=== PATIENT | female | born 1960 | race Hispanic/Latino ===

== ENCOUNTER → 2019-08-22 | Outpatient (CLI) | payer BC, SELFPAY | END | disposition home or self-care (01) | PROVIDERS: PCP Family Medicine; Referring Provider Family Medicine; Visit Provider Family Medicine | DX: R68.89 Other general symptoms and signs (principal) | CPT/HCPCS: 87635; G2023; U0004 ==

== ENCOUNTER 2023-01-10 07:06 | Day surgery (SDC) | payer OTHER, SELFPAY ==
[2023-01-10] MEDS: Lactated Ringers 1,000 ML 15 ML IV (07:54)
[2023-01-10 07:55] VITALS: BP 140/65; PULSE 71; RESP 16; TEMP 36.8; O2SAT 98; BMI 25.2
--- NOTE | 2023-01-10 08:13 | HP.PCM_ITS ---
History and Physical Intake Vital Signs 12/27/2307:31 Height 5 ft 4 in Weight: 143 lb 2 oz BMI 24.5 BP 123/71 H Blood Pressure Location Rt brachial Position Sitting Respiration 18 Pulse 82 Pulse Source Monitor Temp 97.3 F L Temp Source Temporal Pulse Oximetry (%) 94 Oxygen Delivery Method room air Intake Visit Reasons: UPPER AND LOWER FOR SWALLOWING ISSUES Chief Complaint: EGD/Colonoscopy consult [employer] Required: No Is patient in pain?: No Allergies No Known Allergies Allergy (Unverified 12/26/22 08:32) Medications amlodipine 10 mg tablet mg PO DAILY 12/26/22 [History Confirmed 12/26/22] atorvastatin 40 mg tablet mg PO DAILY 12/26/22 [History Confirmed 12/26/22] blood-glucose meter (Accu-Chek Guide Me Glucose Meter) #1 ea 12/26/22 [History Confirmed 12/26/22] cholecalciferol (vitamin D3) 25 mcg (1,000 unit) capsule (Vitamin D3) PO DAILY 12/26/22 [History Confirmed 12/26/22] citalopram 10 mg tablet mg PO QHS 12/26/22 [History Confirmed 12/26/22] dulaglutide 3 mg/0.5 mL subcutaneous pen injector (Trulicity) 3 mg subcut QWEEK 12/26/22 [History Confirmed 12/26/22] enalapril maleate 20 mg tablet mg PO DAILY 12/26/22 [History Confirmed 12/26/22] insulin aspart U-100 100 unit/mL subcutaneous solution (Novolog U-100 Insulin aspart) 40 unit subcut QHS 12/26/22 [History Confirmed 12/26/22] insulin glargine 100 unit/mL subcutaneous cartridge 10 unit subcut DAILY 12/26/22 [History Confirmed 12/26/22] lancets (Accu-Chek Softclix Lancets) #100 ea 12/26/22 [History Confirmed 12/26/22] meloxicam 15 mg tablet mg PO DAILY 12/26/22 [History Confirmed 12/26/22] metformin 1,000 mg tablet 1,000 mg PO BID 12/26/22 [History Confirmed 12/26/22] pen needle, diabetic 31 gauge x 3/16 (BD Ultra-Fine Mini Pen Needle) #1,200 ea 10/02/23 [History Confirmed 12/26/22] [facility] Medical History (Updated 12/26/22 @ 11:[address] Eyal Patton MD) Diabetes Dysphagia Surgical History (Updated 12/26/22 @ 08:30 by Annette Malave) History of colonoscopy Family History (Updated 12/26/22 @ 08:31 by Annette Malave) Father DiabetesMother Hypertension Social History (Updated 12/26/22 @ 08:31 by Annette Malave) Smoking Status: Never smoker alcohol intake: never substance use type: does not use HPI HPI HPI: Patient is a 62-year-old female here for colonoscopy and EGD. Patient had her last reining colonoscopy 11 years ago and is due. She denies any abdominal pain or blood in her stool. Patient has also been having some dysphagia. She says has been going on for about a year. She has been taking a proton pump inhibitor. She has acid reflux. ROS General General: No weight change, appetite, fatigue, colon cancer, breast cancer or weakness HEENT HEENT: Yes difficulty swallowing and eye surgery; No eye injury, swollen glands or hoarseness Endo Endocrine: Yes diabetes mellitus; No thyroid disease, thyroid cancer, Hair loss, heat intolerance or cold intolerance Skin Skin: No rash or changing moles Breast Breast: No left breast lump, right breast lump, nipple discharge, breast pain, abnormal mammogram, abnormal US or breast enlargement Musc Musculoskeletal: Yes arthritis; No back problems, rheumatoid arthritis, gout or joint pain Cardio Cardiovascular: No murmur, pacemaker, heart disease, atrial fibrillation, high blood pressure, heart attack, heart stent, palpitations, shortness of breat with exertion or chest pain Psych Psychiatric: No depression, anxiety or hearing voices Resp Respiratory: No shortness of breath, No sleep apnea, No cough, No COPD, No asthma, No emphysema and No wheezing Gastro Gastrointestinal: No abdominal pain, No nausea or vomiting, No diarrhea, No constipation, No blood in stool, No acid reflux, No hemorrhoids, No ulcers, No gallbladder problem and No black,tarry stools Estiven Hematologic: No blood thinners, No blood disorders, No bleeding, No anemia and No blood clots Neuro Neurologic: No system reviewed and no additional complaints, except as documented, No as per HPI, No abnormal gait, No abnormal hearing, No abnormal movements, No abnormal speech, No behavioral changes, No burning sensations, No confusion, No convulsions, No disequilibrium, No dizziness, No localized weakness, No frequent falls, No headache(s), No lack of coordination, No loss of vision, No memory loss, No numbness, No other visual disturbances, No radicular pain, No restless legs, No sensory deficit, No syncope, No tingling, No tremor(s), No weakness and No other Exam Const General: cooperative Orientation: alert and oriented x3 HENMT Head: normal to inspection Neck Neck: normal visual inspection and full ROM Chest Chest palpation & inspection: normal inspection of the chest Resp Effort & Inspection: normal respiratory effort Auscultation: clear to auscultation bilaterally Cardio Rate: regular rate Rhythm: regular rhythm GI Inspection: non-distended Palpation: soft and nontender Skin General: no rashes or lesions noted Neuro General: patient alert and patient oriented x3 Extrem General: full ROM Psych Appearance: grossly normal Mental Status: mental status grossly normal Assessment and Plan Assessment and Plan (1) Screen for colon cancer: Status: Acute (2) Dysphagia: Status: Acute Qualifiers: Dysphagia type: unspecified Qualified Code(s): R13.10 - Dysphagia, unspecified Orders: Orders Colonoscopy Today EGD Today Plan Patient is having dysphagia and she is due for screening colonoscopy. I plan on EGD and colonoscopy. I also discussed possible dilation with her and the increased risk of bleeding and perforation if dilation is performed. I explained endoscopy in detail to the patient. I explained the risks including but not limited to stroke or heart attack with anesthesia, perforation of the GI tract, bleeding, infection. I explained that any of these could necessitate further emergency surgery. The patient understands and all questions were answered sufficiently. The patient wishes to proceed with procedure. Eyal Patton MD Pager: [facility] [address] [place] [address], [address] [place] [address] Office: I have examined the patient and the H&P has been reviewed. There are no clinical changes since date of exam.
[2023-01-10 08:20] LABS: Bedside Glucose 233 mg/dL (74-106)
[2023-01-10 08:45] VITALS: BP 112/56; BP 140/65; PULSE 76; RESP 18; TEMP 36.2; O2SAT 96
[2023-01-10 08:50] VITALS: BP 105/80; BP 140/65; PULSE 68; RESP 16; O2SAT 98
--- NOTE | 2023-01-10 08:50 | OP.COLON_ITS ---
Patient Name: Adriane Herrera Procedure Date: 01/10/2023 8:24 AM Date of : 1960 Age: 62 Procedure: Colonoscopy Indications: Screening for colorectal malignant neoplasm Providers: Eyal Patton MD Medicines: Monitored Anesthesia Care Patient Profile: This is a 62 year old female. Refer to note in patient chart for documentation of history and physical. Last Colonoscopy: 10 years ago. Complications: No immediate complications. Procedure: Pre-Anesthesia Assessment: - Prior to the procedure, a History and Physical was performed, and patient medications and allergies were reviewed. The patient's tolerance of previous anesthesia was also reviewed. The risks and benefits of the procedure and the sedation options and risks were discussed with the patient. All questions were answered, and informed consent was obtained. Prior Anticoagulants: The patient has taken no anticoagulant or antiplatelet agents. After reviewing the risks and benefits, the patient was deemed in satisfactory condition to undergo the procedure. After I obtained informed consent, the scope was passed under direct vision. Throughout the procedure, the patient's blood pressure, pulse, and oxygen saturations were monitored continuously. The Colonoscope was introduced through the anus and advanced to the cecum, identified by appendiceal orifice and ileocecal valve. The colonoscopy was performed without difficulty. The patient tolerated the procedure well. The quality of the bowel preparation was good. The ileocecal valve, appendiceal orifice, and rectum were photographed. Scope In: 8:30:14 AM Scope Withdrawal Time 0 hours 4 minutes 29 seconds Scope Out: 8:39:20 AM Total Procedure Duration Time 0 hours 9 minutes 6 seconds Findings: The entire examined colon appeared normal on direct and retroflexion views. Impression: - The entire examined colon is normal on direct and retroflexion views. - No specimens collected. Recommendation: - Discharge patient to home. - Resume previous diet. - Continue present medications. - Repeat colonoscopy in 10 years for screening purposes. Procedure Code(s): --- Professional --- 82172, Colonoscopy, flexible; diagnostic, including collection of specimen(s) by brushing or washing, when performed (separate procedure) Diagnosis Code(s): --- Professional --- Z12.11, Encounter for screening for malignant neoplasm of colon CPT copyright 2021 [employer]. All rights reserved. The codes documented in this report are preliminary and upon grounds maintenance worker review may be revised to meet current compliance requirements. Eyal Patton MD 01/10/2023 8:49:26 AM This report has been signed electronically. Number of Addenda: 0 Note Initiated On: 01/10/2023 8:24 AM
--- NOTE | 2023-01-10 08:50 | OP.CCLET_ITS ---
01/10/2023 Domingo Johnson Re : Colonoscopy procedure for Adriane Johnson This procedure was performed on Tuesday, January 10, 2023. My impressions and recommendations are as follows: Impressions : - The entire examined colon is normal on direct and retroflexion views. - No specimens collected. Recommendations : - Discharge patient to home. - Resume previous diet. - Continue present medications. - Repeat colonoscopy in 10 years for screening purposes. My findings are described in the full procedure note, which is enclosed. If I can be of further assistance, please feel free to contact me at Doctor phone number(s): , Work: . Sincerely, Eyal Patton MD 01/10/2023 8:49:26 AM This report has been signed electronically.
[2023-01-10 08:55] VITALS: BP 128/65; BP 140/65; PULSE 67; RESP 18; O2SAT 97
[2023-01-10 09:00] VITALS: BP 124/68; BP 140/65; PULSE 67; RESP 18; TEMP 36.3; O2SAT 96
[2023-01-10 09:14] VITALS: BP 140/65
== END 2023-01-10 09:20 | disposition home or self-care (01) ==
LOC: EN 07:09 → AC 07:09
PROVIDERS: PCP Family Medicine; Referring Provider Family Medicine; Visit Provider Surgery
PROC: 0DJD8ZZ Inspection of Lower Intestinal Tract, Via Natural or Artificial Opening Endoscopic (ICD-10-PCS; CPT 45378; principal; 2023-01-10 08:10)
DX: Z12.11 Encounter for screening for malignant neoplasm of colon (principal); E11.9 Type 2 diabetes mellitus without complications; Z79.4 Long term (current) use of insulin; Z79.84 Long term (current) use of oral hypoglycemic drugs; Z79.899 Other long term (current) drug therapy; Z79.85 Long-term (current) use of injectable non-insulin antidiabetic drugs; K21.9 Gastro-esophageal reflux disease without esophagitis
CPT/HCPCS: 45378; 82962; J7120; J2405

== ENCOUNTER → 2024-05-20 | Outpatient (CLI) | payer MEDICARE, OTHER, SELFPAY ==
[2024-05-20 13:21] LABS: Vitamin D,25 Hydroxy 35.6 ng/mL
[2024-05-20 13:38] LABS: Microalbumin:Creatinine Ratio 188.6 mg/g CRE (<30 mg/g CRE)
[2024-05-20 20:17] LABS: AST(SGOT) 17 U/L (15-37); Alanine Aminotransfer ALT/SGPT 43 U/L (13-56); Albumin, Serum 3.7 g/dL (3.2-5.0); Alkaline Phosphatase 53 U/L (45-117); Anion Gap 6 (5-15); BUN 15 mg/dL (7-18); BUN/Creat Ratio 34.6 RATIO (10-20); Calcium,Total 8.6 mg/dL (8.5-10.1); Chloride 103 mmol/L (98-107); Cholesterol 146 mg/dL (200); Creatinine, Serum 0.43 mg/dL (0.55-1.02); EST Glomerular Filtration Rate 155 mL/min (>60); Est Glom Filt Rate - Afr Amer 188 mL/min (>60); Globulin 3.8 g/dL (2.2-4.2); Glucose 115 mg/dL (74-106); High Density Lipoprotein 65 mg/dL; Potassium 3.7 mmol/L (3.5-5.1); Protein, Total 7.5 g/dL (6.4-8.2); Sodium Level 139 mmol/L (136-145); Triglycerides 93 mg/dL; Very Low Density Lipoprotein 19 mg/dL (5-40)
== END | disposition home or self-care (01) ==
LOC: LAB 11:53
PROVIDERS: PCP Family Medicine; Referring Provider Nurse Practitioner Family; Visit Provider Nurse Practitioner Family
DX: E11.9 Type 2 diabetes mellitus without complications (principal); E55.9 Vitamin D deficiency, unspecified
CPT/HCPCS: 36415; 80053; 80061; 82043; 82306; 82570; 84443

== ENCOUNTER → 2024-06-06 | Outpatient (CLI) | payer MEDICARE, OTHER, SELFPAY ==
--- NOTE | 2024-06-06 16:30 | BD_ITS ---
PROCEDURE: DEXA BONE DENSITY STUDY REASON FOR EXAM: Z78.0 - ASYMPTOMATIC MENOPAUSAL STATE F, age 63 y/o . TECHNIQUE: DEXA scan of the lumbar spine and both hips. COMPARISON: None. FINDINGS: T-SCORES Lumbar spine: -1.1 (BMD 0.930) Left hip: -0.3 (BMD 0.910) Right hip: -0.2 (BMD 0.916) Right hip FRAX* Results: 10 Year Probability of Fracture: Hip Fracture(1): 1.9% Major Osteoporotic Fracture(2): 14% Left hip FRAX* Results: 10 Year Probability of Fracture: Hip Fracture(1): 1.2% Major Osteoporotic Fracture(2): 13% *FRAX is a trademark of the [employer]'s [place] for Metabolic Bone Disease, World Health Organization (WHO) Collaborating [place]. 1-The 10-year probability of fracture may be lower than reported if the patient has received treatment. 2-Major Osteoporotic Fracture: Clinical Spine, Forearm, Hip or Shoulder. BD/Dexa Bone Density Study IMPRESSION: Osteopenia of the lumbar spine and hips. Reading Location: [facility]
== END | disposition home or self-care (01) ==
LOC: OPBD 16:22
PROVIDERS: PCP Family Medicine; Referring Provider Nurse Practitioner Family; Visit Provider Nurse Practitioner Family
DX: Z78.0 Asymptomatic menopausal state (principal)
CPT/HCPCS: 77080

== ENCOUNTER → 2025-02-10 | Outpatient (CLI) | payer MEDICARE, OTHER, SELFPAY ==
--- OUTSIDE RECORDS SUMMARY | 2025-02-10 08:51 | XMS RPT_ITS | CCD ---
Author Organization [facility] Care Team Providers Care Public Works Inspector Name Role Phone Domingo Fong Unavailable Unavailable UNKNOWN, PROVIDER Unavailable Unavailable Petrilla, Domingo Unavailable Unavailable CAREY GUTIERRES Attending Unavailable PETRILLA, DOMINGO F Referring Unavailable PETRILLA, DOMINGO F Primary Care Unavailable Domingo Fong DO F Primary Care Provider Domingo Fong DO F Primary Care Provider Domingo Fong DO F Primary Care Provider DOMINGO FONG Primary Care Unavailable ESTEE LYLES Attending Unavaila ble Hetal LAFLEUR, Dr. Lane Primary Care Provider Dr. Domingo Fong DO Referring Provider Dominguez FILTERING MACHINE TENDER-CNatacha Attending Provider [phone] Dominguez FILTERING MACHINE TENDER-Natacha Guerrero Referring Provider [phone] DOMINGO FONG Attending Unavailable MARYCRUZA, DOMINGO Primary Care Unavailable DOMINGO FONG Attending Unavailable PETRILLA, DOMINGO Primary Care Unavailable Petrilla, Domingo Primary Care Unavailable PetriantoniaaDomingo Attending Unavailable Petrilla, Domingo Referring Unavailable Natacha Mix Attending Unavailable Natahca Mix Referring Unavailable Petrilla, Domingo Primary Care Unavailable Natacha Mix Attending Unavailable Petrilla, Domingo Primary Care Unavailable Natacha Mix Referring Unavailable Alphonse Peres Attending Unavailable Alphonse Peres Referring Unavailable Petrilla, Domingo Primary Care Unavailable Natacha Mix Attending Unavailable Petrilla, Domingo Primary Care Unavailable Petrilla, Domingo Referring Unavailable Petrilla, Domingo Primary Care Unavailable Natacha Mix Attending Unavailable Petrilla, Domingo Referring Unavailable Alphonse Peres Attending Unavailable Petrilla, Domingo Referring Unavailable Petrilla, Domingo Primary Care Unavailable Allergies Allergy Classification Reported Allergen(s) Allergy Type Date of Onset Reaction(s) Facility (1 source) Pollen Allergy to substance 05-27-2024 congestion [facility] (1 source) Pollen Drug allergy (disorder) 01-27-2025 [facility] Repository Medications Current Medications Medication Drug Class(es) Dates Sig (Normalized) Sig (Original) alendronic acid 70 mg oral tablet (8 sources) Bisphosphonate Start: 09-16-2024 End: 09-16-2025 take 1 tablet by mouth in the morning alendronate (Fosamax) 70 MG tablet Take 1 tablet (70 mg) by mouth every 7 days. Take in the morning with a full glass of water, on an empty stomach, and do not take anything else by mouth or lie down for the next 30 min. 12 tablet 3 09/16/2024 09/16/2025 Active amLODIPine 10 mg oral tablet (20 sources) Dihydropyridine Calcium Channel Bernice Start: 09-06-2021 End: 07-09-2024 take 1 tablet by mouth once daily amLODIPine (Norvasc) 10 MG tablet Take 1 tablet by mouth once daily 180 tablet 1 07/09/2024 Active aspirin 81 mg delayed release oral tablet (20 sources) Platelet Aggregation Inhibitor, Nonsteroidal Anti-inflammatory Drug Start: 05-27-2024 Aspirin (Adult Low Dose Aspirin) 81 mg tablet,delayed release (DR/EC) Active 81 mg PO daily May 27, 2024 1:00am Start: 06-27-2022 aspirin 81 MG chewable tablet Chew 81 mg Once. 06/27/2022 Active atorvastatin 40 mg oral tablet (20 sources) HMG-CoA Reductase Inhibitor Start: 11-15-2021 End: 12-15-2024 take 1 tablet by mouth once daily atorvastatin (Lipitor) 40 MG tablet Take 1 tablet (40 mg) by mouth daily for 90 doses. 90 tablet 1 09/16/2024 Active azithromycin 250 mg oral tablet (1 source) Macrolide Antimicrobial Start: 01-30-2024 End: 02-04-2024 azithromycin (Zithromax) 250 MG tablet Take 2 tabs (500 mg) by mouth today, than 1 daily for 4 days. 6 tablet 01/30/2024 02/04/2024 Active Blood Glucose Monitoring Suppl (Blood Glucose Monitor System) w/Device kit (16 sources) Start: 05-20-2024 Blood Glucose Monitoring Suppl (Blood Glucose Monitor System) w/Device kit 1 each by Other route 2 times daily. Accu-check Brand Type 2 diabetes mellitus without complication, with long-term current use of insulin (CMS/HCC) ([facility]) - Primary E11.9 1 kit 05/20/2024 Active Start: 05-17-2024 End: 05-20-2024 Blood Gl[address] Monitoring [address] (Blood Glucose Monitor System) w/Device kit Accu-check Brand Type 2 diabetes mellitus without complication, with long-term current use of insulin (CMS/[facility]) ([facility]) - Primary E11.9 1 kit 05/17/2024 05/20/2024 Discontinued (Reorder) Start: 05-17-2024 End: 05-17-2025 Blood Gl[address] Monitoring [address] (Blood Glucose Monitor System) w/Device kit Accu-check Brand Type 2 diabetes mellitus without complication, with long-term current use of insulin (CMS/[facility]) ([facility]) - Primary E11.9 1 kit 05/17/2024 05/17/2025 Active Blood-Glucose Meter (Accu-Chek Guide Me Glucose Mtr) misc (1 source) Start: 12-26-2022 Blood-Glucose Meter (Accu-Chek Guide Me Glucose Mtr) misc Active NMA .ROUTE .MEDSUPPLY December 26, 2022 12:00am As directed busPIRone hydrochloride 5 mg oral tablet (20 sources) Start: 01-08-2024 End: 05-13-2025 take 1 tablet by mouth twice daily, then take 1 tablet by mouth twice daily busPIRone (Buspar) 5 MG tablet Take 1 tablet (5 mg) by mouth 2 times daily. One bid to prevent anxiety 60 tablet 5 05/13/2024 05/13/2025 Active cefuroxime 250 mg oral tablet (2 sources) Cephalosporin Antibacterial Start: 10-03-2022 End: 10-13-2022 take 1 tablet by mouth twice daily cefuroxime (Ceftin) 250 MG tablet Take 1 tablet (250 mg) by mouth 2 times daily for 10 days. 20 tablet 0 10/03/2022 10/13/2022 Active cholecalciferol 0.025 mg oral tablet (20 sources) Vitamin D Start: 12-26-2022 take 1 capsule by mouth once daily Cholecalciferol (Vitamin D3) (Vitamin D3) 25 mcg (1,000 unit) capsule Active 1000 U PO DAILY December 26, 2022 12:00am Start: 05-24-2021 End: 08-26-2024 take 3 tablets by mouth once daily cholecalciferol (Vitamin D-3) 25 MCG (1000 UT) tablet Take 3 tablets (75 mcg) by mouth daily. 270 tablet 1 08/26/2024 Active dulaglutide (Trulicity) 3 MG/0.5ML solution pen-injector (17 sources) Start: 12-18-2023 inject 3 mg by subcutaneous injection every week dulaglutide (Trulicity) 3 MG/0.5ML solution pen-injector Inject 3 mg under the skin 1 (one) time per week. 4 each 2 12/18/2023 Active Start: 08-18-2023 End: 08-22-2023 inject 3 mg by subcutaneous injection every week dulaglutide (Trulicity) 3 MG/0.5ML solution pen-injector Inject 3 mg under the skin 1 (one) time per week. 12 each 08/18/2023 08/22/2023 Discontinued (Availability) Start: 08-18-2023 inject 3 mg by subcu taneous injection every week dulaglutide (Trulicity) 3 MG/0.5ML solution pen-injector Inject 3 mg under the skin 1 (one) time per week. 12 each 08/18/2023 Active Start: 10-03-2022 End: 11-14-2022 inject 3 mg by subcutaneous injection every week dulaglutide (Trulicity) 3 MG/0.5ML solution pen-injector Inject 3 mg under the skin 1 (one) time per week. 12 each 10/03/2022 11/14/2022 Discontinued (Dose adjustment) Start: 10-03-2022 inject 3 mg by subcu taneous injection every week dulaglutide (Trulicity) 3 MG/0.5ML solution pen-injector Inject 3 mg under the skin 1 (one) time per week. 12 each 10/03/2022 Active Start: 04-25-2022 End: 10-03-2022 inject 3 mg by subcutaneous injection every week dulaglutide (Trulicity) 3 MG/0.5ML solution pen-injector Inject 3 mg under the skin 1 (one) time per week. 12 each 04/25/2022 10/03/2022 Discontinued (Reorder) Start: 04-25-2022 inject 3 mg by subcu taneous injection every week dulaglutide (Trulicity) 3 MG/0.5ML solution pen-injector Inject 3 mg under the skin 1 (one) time per week. 12 each 04/25/2022 Active enalapril maleate 20 mg oral tablet (20 sources) Angiotensin Converting Enzyme Inhibitor Start: 01-31-2022 End: 09-02-2024 take 1 tablet by mouth once daily in the morning enalapril (Vasotec) 20 MG tablet TAKE 1 TABLET BY MOUTH ONCE DAILY IN THE MORNING 90 tablet 1 09/02/2024 Active 3 ml insulin aspart, human 100 unt/ml pen injector (20 sources) Insulin Analog Start: 07-03-2023 End: 09-16-2024 insulin aspart (NovoLOG) 100 UNIT/ML pen 24 units 3 x a day 10 mL 5 09/16/2024 Active Start: 12-26-2022 Insulin Aspart U-100 (Novolog U-100 Insulin Aspart) 100 unit/mL solution Active 40 U SC AT BEDTIME December 26, 2022 12:00am Start: 06-29-2022 End: 07-03-2023 insulin aspart (NovoLOG) 100 UNIT/ML pen If BS is 70-150 take 4 units, If 151-200, take 8 units, if 201-250, take 12 units, over 250, take 14 units/day 10 mL 2 10/03/2022 04/17/2023 Discontinued (Reorder) Start: 03-01-2021 End: 06-29-2022 insulin aspart (NovoLOG) 100 UNIT/ML pen If BS is 70-150 take 4 units, If 151-200, take 8 units, if 201-250, take 12 units, over 250, take 14 units/day 0 03/01/2021 06/29/2022 Discontinued (Reorder) 3 ml insulin glargine 100 unt/ml pen injector (20 sources) Insulin Analog Start: 01-03-2024 End: 09-16-2024 insulin glargine (Lantus SoloStar) 100 UNIT/ML pen 50 Units q day. 15 Pen 11 09/16/2024 Active Start: 09-19-2023 End: 01-03-2024 Lantus 100 UNIT/ML injection INJECTED DAILY DIRECTED. 10 mL 11 09/19/2023 01/03/2024 Discontinued Start: 06-12-2023 End: 01-03-2024 insulin glargine (Lantus Shraddha oStar) 100 UNIT/ML pen 44 Units q day. 24 each 3 06/12/2023 01/03/2024 Discontinued Start: 11-14-2022 End: 06-12-2023 insulin glargine (Lantus Shraddha oStar) 100 UNIT/ML pen Increase to 60 U q AM 24 each 3 11/14/2022 06/12/2023 Discontinued (Reorder) Start: 04-25-2022 End: 11-14-2022 insulin glargine (Lantus Shraddha oStar) 100 UNIT/ML pen Change to 40 units with BF and 54 units with supper daily 24 each 3 10/03/2022 11/14/2022 Discontinued Start: 02-21-2022 End: 04-25-2022 insulin glargine (Lantus Shraddha oStar) 100 UNIT/ML pen Change to 54 units with BF and 26 units with supper daily 24 each 3 02/21/2022 04/25/2022 Discontinued Insulin Glargine 100 unit/mL cartridge (1 source) Start: 12-26-2022 Insulin Glargi ne 100 unit/mL cartridge Active 10 U SC DAILY December 26, 2022 12:00am meloxicam 15 mg oral tablet (20 sources) Nonsteroidal Anti-inflammatory Drug Start: 01-31-2022 End: 07-11-2024 take 1 tablet by mouth once daily meloxicam (Mobic) 15 MG tablet TAKE 1 TABLET (15 MG) BY MOUTH DAILY FOR 90 DOSES. 90 tablet 07/17/2023 07/11/2024 Active meloxicam (Mobic ) 7.5 MG tablet Take 7.5 mg by mouth as needed for mild pain (1-3). Active metFORMIN hydrochloride 1000 mg oral tablet (20 sources) Biguanide Start: 09-06-2021 End: 08-26-2024 take 1 tablet by mouth at mealtime metFORMIN (Glucophage) 1000 MG tablet TAKE 1 TABLET (1,000 MG) BY MOUTH IN THE MORNING AND IN THE EVENING WITH MEALS 180 tablet 1 08/26/2024 Active Ozempic, 2 MG/DOSE, 8 MG/3ML solution pen-injector (20 sources) Start: 04-30-2024 inject 2 mg by subcutaneous injection every week Ozempic, 2 MG/DOSE, 8 MG/3ML solution pen-injector INJECT 2MG SUBCUTANEOUSLY ONCE A WEEK 04/30/2024 Active Semaglutide (Ozempic) 2 mg/dose (8 mg/3 mL) pen injector (1 source) Start: 04-01-2024 Semaglutide (Ozempic) 2 mg/dose (8 mg/3 mL) pen injector Active 2 mg SC EVERY WEEK 3 April 01, 2024 1:00am Completed/Discontinued Medications Medication Drug Class(es) Dates Sig (Normalized) Sig (Original) citalopram 10 mg oral tablet (20 sources) Serotonin Reuptake Inhibitor Start: 01-31-2022 End: 04-01-2024 take 1 tablet by mouth at bedtime Citalopram 10 mg tablet Discontinued 10 mg PO AT BEDTIME December 26, 2022 12:00am April 01, 2024 12:14pm 0.5 ml dulaglutide 3 mg/ml auto-injector (9 sources) GLP-1 Receptor Agonist Start: 08-22-2023 End: 01-02-2024 inject 1.5 mg by subcutaneous injection every week dulaglutide (Trulicity) 1.5 MG/0.5ML solution pen-injector Inject 1.5 mg under the skin 1 (one) time per week. 4 Pen 2 08/22/2023 01/02/2024 Discontinued (Dose adjustment) Start: 12-26-2022 End: 04-01-2024 Dulaglutide (Trulicity) 3 mg /0.5 mL pen injector Discontinued 3 mg SC EVERY WEEK December 26, 2022 12:00am April 01, 2024 12:46pm Start: 11-16-2021 End: 04-26-2022 dulaglutide (Trulicity) 1.5 MG/0.5ML solution pen-injector Inject 1.5 mg under the skin. 0 11/16/2021 04/26/2022 Discontinued (Dose adjustment) dulaglutide (Trulicity) 3 MG/0.5ML solution pen-injector (7 sources) Start: 12-18-2023 End: 05-13-2024 inject 3 mg by subcutaneous injection every week dulaglutide (Trulicity) 3 MG/0.5ML solution pen-injector Inject 3 mg under the skin 1 (one) time per week. 4 each 2 12/18/2023 05/13/2024 Discontinued (Therapy completed) Start: 12-18-2023 inject 3 mg by subcu taneous injection every week dulaglutide (Trulicity) 3 MG/0.5ML solution pen-injector Inject 3 mg under the skin 1 (one) time per week. 4 each 2 12/18/2023 Active dulaglutide (Trulicity) 4.5 MG/0.5ML solution pen-injector (20 sources) Start: 06-12-2023 End: 08-18-2023 inject 4.5 mg by subcutaneous injection every week dulaglutide (Trulicity) 4.5 MG/0.5ML solution pen-injector Inject 4.5 mg under the skin 1 (one) time per week. 4 each 3 06/12/2023 08/18/2023 Discontinued (Availability) Start: 06-12-2023 inject 4.5 mg by sub cutaneous injection every week dulaglutide (Trulicity) 4.5 MG/0.5ML solution pen-injector Inject 4.5 mg under the skin 1 (one) time per week. 4 each 3 06/12/2023 Active Start: 11-14-2022 End: 06-12-2023 inject 4.5 mg by subcutaneous injection every week dulaglutide (Trulicity) 4.5 MG/0.5ML solution pen-injector Inject 4.5 mg under the skin 1 (one) time per week. 4 each 11/14/2022 06/12/2023 Discontinued (Reorder) Start: 11-14-2022 inject 4.5 mg by sub cutaneous injection every week dulaglutide (Trulicity) 4.5 MG/0.5ML solution pen-injector Inject 4.5 mg under the skin 1 (one) time per week. 4 each 11 11/14/2022 Active Trulicity 3 MG/0.5ML solution pen-injector (2 sources) Start: 09-19-2023 End: 12-18-2023 inject 3 mg by subcutaneous injection every week Trulicity 3 MG/0.5ML solution pen-injector INJECT 3 MG SUBCUTANEOUSLY WEEKLY 4 each 2 09/19/2023 12/18/2023 Discontinued (Reorder) Start: 09-19-2023 inject 3 mg by subcu taneous injection every week Trulicity 3 MG/0.5ML solution pen-injector INJECT 3 MG SUBCUTANEOUSLY WEEKLY 4 each 2 09/19/2023 Active Problems Active Problems Problem Classification Problem Date Documented Date Episodic/Chronic Adjustment disorders (20 sources) Adjustment disorder with anxious mood; Translations: [Adjustment disorder with anxiety] Onset: 03-01-2001-09-2022 Chronic Anxiety disorders (1 source) Generalized anxiety disorder; Translations: [Generalized anxiety disorder] Chronic Diabetes mellitus with complications (20 sources) Retinopathy due to diabetes mellitus; Translations: [Type 2 diabetes mellitus with unspecified diabetic retinopathy without macular edema] Onset: 10-06-1901-09-2022 Chronic Diabetes mellitus without complication (20 sources) Diabetes mellitus; Translations: [Type 2 diabetes mellitus without complications] Onset: 12-15-1901-09-2022 Chronic Disorders of lipid metabolism (20 sources) Mixed hypercholesterolemia and hypertriglyceridemia; Translations: [Mixed hyperlipidemia] Onset: 12-15-1901-09-2022 Chronic Essential hypertension (20 sources) Essential hypertension; Translations: [Essential (primary) hypertension] Onset: 12-15-1901-09-2022 Chronic Genitourinary symptoms and ill-defined conditions (2 sources) Microalbuminuria; Translations: [Proteinuria, unspecified] 06-10-2024 Episodic Nonspecific chest pain (20 sources) Chest pain; Translations: [Chest pain, unspecified] Onset: 05-13-1911-14-2022 Episodic Nutritional deficiencies (4 sources) Vitamin D deficiency; Translations: [Vitamin D deficiency, unspecified] Onset: 04-01-1904-01-2024 Chronic Osteoarthritis (20 sources) Arthritis of knee; Translations: [Unilateral primary osteoarthritis, right knee] Onset: 10-06-1901-09-2022 Chronic Other acquired deformities (20 sources) Contracture of joint of finger; Translations: [Contracture, unspecified hand] Onset: 12-15-1901-09-2022 Chronic Other gastrointestinal disorders (8 sources) Dysphagia; Translations: [Dysphagia, unspecified] 12-20-2022 Episodic Other lower respiratory disease (1 source) Chronic cough; Translations: [Chronic cough] 11-14-2022 Episodic Other nervous system disorders (20 sources) Carpal tunnel syndrome; Translations: [Carpal tunnel syndrome, unspecified upper limb] Onset: 12-15-1901-09-2022 Chronic Other skin disorders (7 sources) Hypertrophy of toenail; Translations: [Onychogryphosis] 05-13-2024 Episodic Other upper respiratory infections (2 sources) Acute recurrent frontal sinusitis; Translations: [Acute frontal sinusitis] 10-03-2022 Episodic Residual codes; unclassified (2 sources) Postmenopausal state; Translations: [Asymptomatic menopausal state] 04-01-2024 Episodic Superficial injury; contusion (1 source) Injury of conjunctiva and corneal abrasion without foreign body, right eye, initial encounter; Translations: [Abrasion of right cornea, initial encounter] Onset: 12-26-19 Episodic Past or Other Problems Problem Classification Problem Date Documented Da te Episodic/Chronic Other aftercare (20 sources) Patient encounter status; Translations: [jail (current) use of non-steroidal anti-inflammatories (NSAID)] Onset: 10-05-2020 01-09-2022 Episodic Other aftercare (20 sources) jail current use of non-steroidal anti-inflammatory drug; Translations: [jail (current) use of non-steroidal anti-inflammatories (NSAID)] Onset: 10-05-2020 01-09-2022 Episodic Other aftercare (3 sources) 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; Translations: [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 (HCC)] Onset: 01-09-2022 Episodic Other aftercare (2 sources) jail (current) use of non-steroidal anti-inflammatories (NSAID); Translations: [jail (current) use of non-steroidal anti-inflammatories (nsaid)] Onset: 01-09-2022 Episodic Other bone disease and musculoskeletal deformities (9 sources) Osteopenia; Translations: [Other specified disorders of bone density and structure, unspecified site] Onset: 05-25-2024 09-16-2024 Episodic Other bone disease and musculoskeletal deformities (2 sources) Other specified disorders of bone density and structure, unspecified site; Translations: [Other specified disorders of bone density and structure, unspecified site] Onset: 09-16-2024 Episodic Residual codes; unclassified (1 source) Asymptomatic menopausal state; Translations: [Asymptomatic menopausal state] Onset: 06-15-2024 Episodic Unclassified (14 sources) Encounter for screening mammogram for malignant neoplasm of breast; Translations: [Patient encounter status] Onset: 01-23-2017 11-14-2022 Episodic Results Test Name Value Interpretation Reference Range Facility Cardiology Visit Reporton Cardiology Visit Report [facility] [address] [place] [address] OFFICE VISIT Date of Service: 01/27/25 MR#: [id number] Acct: [id number] Name: ADRIANE HERRERA Rep #: [id number] : 1960 Provider: Dr. Alphonse daley MD Age/Sex: 64/F Location: [facility] Status: Signed HPI HPI History of Present Illness Details: Patient is a pleasant 64-year-old white female that comes in today for new patient visit for chest pain. Patient reports that she has been having for the last 4 to 5 months chest discomfort that occurs about 2 times a week it can last for 30 minutes at a time it occurs primarily with activity but it can occur at rest as well. It is really not changed in intensity or frequency recently. The patient does have a family history of aortic aneurysms but not definitive coronary artery disease. She is diabetic hypertensive and hyperlipidemic. Her hypertension and hyperlipidemia are well-controlled on her current meds. Hemoglobin A1c is 6.3 in August 2024. The patient denies any PND orthopnea. ECG in office today shows normal sinus rhythm at 70 bpm and is normal. The patient does complain of right knee pain and does not feel she can ambulate on a treadmill. She does work full-time [employer] - is now [employer] as a [employer]. Intake Vital Signs 05/27/24 11:45 01/27/25 14:21 Height 5 ft 3 in 5 ft 3.5 in Weight: 138 lb 139 lb BMI 24.4 24.2 BP 129/72 H 104/58 L Blood Pressure Location Rt brachial Rt brachial Position Sitting Sitting Respiration 18 Pulse 73 75 Pulse Source Monitor Monitor Pulse Oximetry (%) 95 96 Oxygen Delivery Method room air room air Intake Visit Reasons: CP/HTN (Hetal) Career Development Coordinator Required: No Accompanied by: Self Is patient in pain?: No Allergies pollen extracts (pollens) Allergy (Mild, Verified 01/27/25 14:21) congestion Medications ???Medication ???Instructions ???Recorded ???Confirmed ???Type amlodipine 10 mg tablet 10 mg PO DAILY 12/26/22 01/27/25 H istory atorvastatin 40 mg tablet 40 mg PO DAILY 12/26/22 01/27/25 H istory blood-glucose meter (Accu-Chek #1 ea 12/26/22 05/27/24 History Guide Me Glucose Meter) cholecalciferol (vitamin D3) 25 1,000 unit PO DAILY 12/26/2201/27 History mcg (1,000 unit) capsule (Vitamin D3) enalapril maleate 20 mg tablet 20 mg PO DAILY 12/26/22 01/27/25 H istory insulin aspart U-100 100 unit/mL 40 unit subcut QHS 12/26/22 History subcutaneous solution (Novolog U-100 Insulin aspart) lancets (Accu-Chek Softclix #100 ea 12/26/22 05/27/24 History Lancets) meloxicam 15 mg tablet 15 mg PO DAILY 12/26/22 01/27/25 H istory metformin 1,000 mg tablet 1,000 mg PO BID 12/26/22 01/27/25 History blood sugar diagnostic (Accu-Chek #100 ea 04/01/24 05/27/24 Rx Guide test strips) buspirone 5 mg tablet 5 mg PO BID 04/01/24 01/27/25 Hist ory aspirin 81 mg tablet,delayed 81 mg PO QDAY 05/27/24 01/27/25 Hi story release (Adult Low Dose Aspirin) semaglutide 2 mg/dose (8 mg/3 mL) 2 mg (0.75 mL) subcut QWEEK #9 mL 10/07/24 01/27/25 Rx subcutaneous pen injector (Ozempic) pen needle, diabetic 31 gauge x #200 ea 01/16/25 Rx 3/16 insulin glargine 100 unit/mL 50 unit subcut DAILY 01/23/2506/18 History subcutaneous cartridge mecobalamin (vitamin B12) 2,500 2,500 mcg PO DAILY 01/27/25 History mcg chewable tablet Have you fallen in the past year?: No PFSH Medical History Osteopenia Diabetic retinopathy Chest pain Wears glasses Wears dentures Gastric reflux Leg cramps Non-smoker Diabetes Dysphagia Surgical History History of section History of colonoscopy Family History Father Diabetes Mother Hypertension Social History Smoking Status: Never smoker alcohol intake: never substance use type: does not use caffeine: Yes ROS Const Const: Positive for fatigue; Negative for weakness ENT ENT: Positive for dizziness; Negative for balance problems Cardio Chest Pain: Yes Palpitations: No Edema: None Muscle aches with walking: None Resp Respiratory: Positive for SOB with activity; Negative for SOB at rest or SOB orthopnea SOB lying down GI GI: Negative nausea, vomiting or heartburn Musc Musc: Negative for muscle weakness or balance problems Neuro Neuro: Positive for dizziness; Negative for lightheadedness, near syncope, syncope or weakness Endo Endo: Positive for fatigue Cardiology Exam Const Appearance: cooperative, healthy appearing, comfortable, no acute distress, well developed an (more content not included)... 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 She would like the referral sent to [facility]. Please help with referral and advise patient. Best time of day caller can be reached: any Patient advised that office/PCP has 24-48 business hours to return their call: Yes Normal [employer] [facility] 36on 01-07-2025 36 Patient aware Normal [facility] 36 Name of Caller: Edit a Contact Reason for Appointment: Patient is following up on upcoming scheduled appointment on Monday 11:20 AM for OFFICE VISIT with Domingo Fong DO. Patient would like to know if she is able to keep this appointment now that Dr Fong is back in office. Please advise. Office Name: [facility] Medication Refills need, if any: n/a Medication Name: n/a [facility] 36on 09-23-2024 36 Order faxed to [facility] er patient request [facility] [facility] Name of caller: Edit a Contact phone number: [phone] Relationship to Patient: patient Provider: Dr Fong Practice: [facility] Chief Complaint/Reason for Call: Patient is requesting that her order for mammogram be faxed over to [facility]. She is requesting a call when completed. Please advise Best time of day caller can be reached: any Patient advised that office/PCP has 24-48 business hours to return their call: Yes [facility] Message released to patient as written. yes Patient's further questions if applicable: na Were all questions from office addressed or relayed to the patient from encounter: N/A [facility] 37on 09-16-2024 37 Personalized Preventative Plan for Adriane Herrera - 09/16/2024 Medicare offers a range of preventative health benefits. Some of the tests and screenings are paid in full while others may be subject to a deductible, co-insurance, and / or copay. Some of these benefits include a comprehensive review of your medical history including lifestyle, illnesses that may run in your family, and various assessments and screenings as appropriate. After reviewing your medical record and screening and assessments performed today, your provider may have ordered immunizations, labs, imaging, and / or referrals for you. A list of these orders (if applicable) as well as your Preventative Care list are included within your After Visit Summary for your review. Other Preventative Recommendations: A preventive eye exam by an medicare contact specialist is recommended every 1-2 years to screen for glaucoma, cataracts, macular degeneration, and other eye disorders. A preventive dental visit is recommended every 6 months. Try to get at least 150 minutes of exercise per week or 10,000 steps per day on a pedometer. You need 1200-1500mg of calcium and [id number] international units of vitamin D per day. It is possible to meet your calcium requirement with diet alone, but a vitamin D supplement is usually necessary to meet this goal. When exposed to the sun, use a sunscreen that protects against both UVA and UVB radiation with an SPF of 30 or greater. Reapply every 2-3 hours or after sweating, drying off with a towel, or swimming. Always wear a seat belt when traveling in a car. Always wear a helmet when riding a bicycle or a motorcycle Normal [facility] Office Visiton 09-16-2024 Follow-up visit [id number] Des Hererra 1960 F Date Provider Department Center 09/16/2024 [id number] CERVANTES [facility] Family History Problem Relation Age of Onset Alzheimer's disease Mother Comments: 2012 Heart disease Mother Comments: Afib - CHF at age 84 Diabetes type II Mother Comments: oral Kidney disease Father Comments: CRF Diabetes Father Comments: age 64 Diabetes Sister Diabetes Sister Diabetes Sister Diabetes Sister Diabetes Sister No Known Problems Sister Stroke Brother 70 Comments: ICH due to aneurysm, HTN, smoker, ETOH Diabetes type II Brother Diabetes Brother Comments: insulin Other Brother Comments: murdered in [facility] Diabetes Maternal Grandfather Comments: in 80s and 90s Family Status - Relation Status Age at Mother 84 Father 64 Sister Alive Sister Alive Sister Alive Sister Alive Sister Alive Sister Alive Brother Brother Alive Brother Alive Brother Maternal Grandmother Maternal Grandfather Paternal Grandmother Paternal Grandfather Level of Service:G0439 [place] PPPS, SUBSEQ VISIT Reason for Visit and Comments: Medicare Annual Wellness Visit Subsequent [677] Normal [facility] Progress Noteon 09-16-2024 Progress Note After obtaining consent, and per orders of Dr. Fong, injection of PREVNAR 20 given in Left deltoid by Shonda Garcia MA . Patient instructed to remain in clinic for 20 minutes afterwards, and to report any adverse reaction to me immediately. Did patient supply medication?No Normal [facility] Progress Note [facility] [place] [address] [facility] [address] [facility] [address] Dept: [phone] Dept Chief Complaint: Adriane Herrera is an 63 y.o. female here for an annual wellness visit. Better controlled type II diabetic on insulin and Ozempic with history of hypertension, hyperlipidemia presents for wellness exam. 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 Glucose and weight better on Ozempic. Needs referral for mammogram. Also still wavering on which route to go for cardiac consultation. She might see Dr. Peres in [place] to discuss options for stress test. Assessment/Plan : Problem List Items Addressed This Visit NSAID long-term use Mixed hypercholesterolemia and hypertriglyceridemia Diabetes mellitus (HCC) Relevant Orders CBC auto differential Comprehensive metabolic panel Lipid panel Hemoglobin A1c Essential hypertension Osteopenia Other Visit Diagnoses Encounter for subsequent annual wellness visit (AWV) in Medicare patient - Primary Breast cancer screening by mammogram I have reviewed and reconciled the medication list with the patient today. Current Medications[1] Also reviewed during this visit: Med Hx Surg Hx The following health maintenance schedule was reviewed with the patient and provided in printed form in the after visit summary: Health Maintenance Topic Date Due Medicare Initial Physical (IPPE) Never done Medicare Annual Wellness (AWV) Never done Bone Density Scan Never done MMR Vaccines (1 of 1 - Standard series) Never done Diabetes: Dental Exam Never done Hepatitis C Screening Never done Cervical Cancer Screening Never done RSV Immunization for Adults (1 - Risk 60-74 years 1-dose series) Never done Pneumococcal Vaccine: 50+ Years (3 of 3 - PCV20 or PCV21) 07/04/2021 Diabetes: Urine Albumin-Creatinine Ratio for Kidney Health 09/06/2022 Mammogram 02/28/2023 COVID-19 Vaccine ( - season) 2023 Influenza Vaccine (Season Ended) 2024 Diabetes: Estimated Glomerular Filtration Rate for Kidney Health 12/24/2024 Lipid Panel 12/24/2024 Diabetes: Hemoglobin A1C 12/31/2024 Diabetes: Foot Exam 01/07/2025 Diabetes: Retinopathy Screening 01/07/2025 Depression Monitoring 03/18/2025 DTaP/Tdap/Td Vaccines (3 - Td or Tdap) 12/25/2032 Colorectal Cancer Screening 01/10/2033 Zoster Vaccines Completed RSV Immunization under 20 Months Aged Out HIB Vaccines Aged Out Hepatitis B Vaccines Aged Out IPV Vaccines Aged Out Hepatitis A Vaccines Aged Out Meningococcal Vaccine Aged Out Rotavirus Vaccines Aged Out HPV Vaccines Aged Out Meningococcal B Vaccine Aged Out List of current healthcare providers: Patient Care Team: Domingo Fong DO as PCP - General Orders Placed This Encounter Procedures Pneumococcal conjugate vaccine 20-valent IM (PREVNAR 20) CBC auto differential Standing Status: Future Number of Occurrences: 1 Expected Date: 09/16/2024 Expiration Date: 09/16/2025 Comprehensive metabolic panel Standing Status: Future Number of Occurrences: 1 Expected Date: 09/16/2024 Expiration Date: 09/16/2025 Lipid panel Standing Status: Future Number of Occurrences: 1 Expected Date: 09/16/2024 Expiration Date: 09/16/2025 Hemoglobin A1c Standing Status: Future Number of Occurrences: 1 Expected Date: 09/16/2024 Expiration Date: 09/16/2025 Review of Systems no acute symptoms. No change in vision or skin or feet. Denies exertional chest pain jaw pain or shortness of breath. She would just like to have coronary disease risk evaluated. Non-smoker. No dyspnea on exertion PND orthopnea or claudication. No heartburn. No bowel issues. No melena blood constipation diarrhea. No breast complaints but she would like a mammogram. Defers breast exam today. No change in arthralgias. Takes meloxicam on a as needed basis. No NSAID issues. Was told she had a normal bone density study but she has osteopenia on this past winter's exam. Physical Exam Very pleasant alert and engaging. No carotid bruits neck masses or thyroid lesions. Heart is regular without gallops murmurs or ectopy. Lungs are clear. Abdomen without pain hepatosplenomegaly masses or bruits. Femoral pedal pulses are excellent. No skin breakdowns. She has a callus on the ventral aspect of the left second metatarsal phalangeal joint. No worrisome features. There is no motor or sensory loss of her feet or toes. She deferred breast exam. Objective : BP 111/59 Pulse 87 Temp 36.3 ?C (97.3 ?F) (Temporal) Ht 5' 4 (1.626 m) Wt 132 lb 3.2 oz (60 kg) SpO2 96% BMI 22.69 kg/m? No results found. Subjective : Health Risk Assessment: General: General In general, how would you say your health is?: Good In the past 7 days, have you experienced any of the following: New or Increased Pain, New or Increased Fatigue, Loneliness, Social Isolation, Stress or Anger?: (!) Yes (more content not included)... [facility] 36 09-02-2024 36 Recent Visits Date Type Provider Dept 05/13/24 Office Visit Domingo Fong DO [facility] 01/08/24 Office Visit Domingo Fong DO [facility] Showing recent visits within past 365 days and meeting all other requirements Future Appointments Date Type Provider Dept 09/16/24 Appointment Domingo Fong DO [facility] Showing future appointments within next 90 days and meeting all other requirements Requested Prescriptions Pending Prescriptions Disp Refills enalapril (Vasotec) 20 MG tablet [Pharmacy Med Name: Enalapril Maleate 20 MG Oral Tablet] 90 tablet 0 Sig: TAKE 1 TABLET BY MOUTH ONCE DAILY IN THE MORNING Provider: Domingo Fong DO Verified pharmacy: yes Verified day(s) supplied: yes Verified refill(s) needed (previous prescription showing no refills in chart): Yes Have you received any controlled medications from any other provider? N/A Overdue for visit: No If yes - patient scheduled? N/A Most recent labs completed in chart? N/A None [address] 08-26-2024 36 Ordering provider: [place] Fong Date of last office visit: 05.13.2024 Date of next office visit: 09.16.2024 Updated/Validated preferred pharmacy: Yes Patient instructed to contact the pharmacy prior to picking up the medication: Yes (1) Medication name: atorvastatin (Lipitor) 40 MG tablet Medication dosage: 40 mg (Miligrams Monthly quantity needed: 90 How many day supply requestin year Medication route: oral (PO) Medication administration time(s): daily If taking medication PRN, reason for taking medication: N/A If this is a controlled substance do you receive this or any other controlled medication from any other doctor or facility: No Date of last refill (see medication tab): 01.08.2024 (2) Medication name: metFORMIN (Glucophage) 1000 MG tablet Medication dosage: 1000 mg (Miligrams Monthly quantity needed: 180 How many day supply requestin year Medication route: oral (PO) Medication administration time(s): 2 times a day (BID) If taking medication PRN, reason for taking medication: N/A If this is a controlled substance do you receive this or any other controlled medication from any other doctor or facility: No Date of last refill (see medication tab): 12.18.2023 (3) Medication name: cholecalciferol (Vitamin D-3) 25 MCG (1000 UT) tablet Medication dosage: 25 mcg (Micrograms) Monthly quantity needed: 270 How many day supply requestin year Medication route: oral (PO) Medication administration time(s): daily If taking medication PRN, reason for taking medication: N/A If this is a controlled substance do you receive this or any other controlled medication from any other doctor or facility: No Date of last refill (see medication tab): 05.24.2021 by historical Provider Patient states she does not take enalapril (Vasotec) 20 MG tablet , wants to know should she be taking this medication? Please advise, thank you. [facility] 36on 08-12-2024 36 Placed call to patient. Two patient identifers confirmed. Was able to speak to patient. All concerns in message have been addressed. No questions at this time. Call ended Pt consents referral [facility] 36 Name of caller: Edit a Contact phone number: [phone] Relationship to Patient: patient Provider: Dr. Fong Practice: [facility] Chief Complaint/Reason for Call: Patient called in regards to the exercise stress test order placed by Dr. Fong on 05/14/24 and states they would like to complete this stress test without a treadmill. Patient states they were advised by a friend that there is something that can be put on their wrist instead of walking on the treadmill and they would like this order to specify this. Patient also states they would like to complete this at [facility] and they would like to see if this order can be sent. Patient is requesting a call back to be informed. Please advise. Best time of day caller can be reached: Any Patient advised that office/PCP has 24-48 business hours to return their call: Yes [facility] 36on 07-18-2024 36 Placed call to patie nt to discuss provider direction. Message left on voicemail to return call. Please release message to patient: Refer patient to [facility] cardiology for assessment for what type of cardiac imaging to evaluate her chest pain would be best for her. A letter was mailed to last known address. [facility] 36 07-17-2024 36 Placed call to patie nt to discuss provider direction. Message left on voicemail to return call. Please release message to patient: Refer patient to [facility] cardiology for assessment for what type of cardiac imaging to evaluate her chest pain would be best for her. [address] 07-12-2024 36 Pt does not feel the y can complete the exercise stress test due to problems with her knee. She would like someone to call her to discuss her other options [address] 07-10-2024 36 Talked to patient an d relayed message to her and she will reach out to them and have the [employer] refill them. [place] [id number] Since this patient i s seeing an rice cleaning machine tender for these diabetic meds they should come from that group. [place] [address] Ordering provider: [place] Fong Date of last office visit: 05.13.24 Date of next office visit: 09.16.24 Updated/Validated preferred pharmacy: Yes [facility] [address] [place] [address] Patient instructed to contact the pharmacy prior to picking up the medication: Yes (1) Medication name: metFORMIN (Glucophage) 1000 MG tablet [[id number]] Medication dosage: 1000 mg (Miligrams Monthly quantity needed: 60 How many day supply requestin days Medication route: oral (PO) Medication administration time(s): 2 times a day (BID) If taking medication PRN, reason for taking medication: N/A If this is a controlled substance do you receive this or any other controlled medication from any other doctor or facility: No Date of last refill (see medication tab): 12.18.23 (2) Medication name: Ozempic, 2 MG/DOSE, 8 MG/3ML solution pen-injector [[id number]] Medication dosage: 2 mg (Miligrams Monthly quantity needed: 4 times How many day supply requestin days would like as many as she can get Medication route: subcutaneous injection (SQ/SC) Medication administration time(s): weekly If taking medication PRN, reason for taking medication: N/A If this is a controlled substance do you receive this or any other controlled medication from any other doctor or facility: No Date of last refill (see medication tab): 04.30.24 (3) Medication name: cholecalciferol (Vitamin D-3) 25 MCG (1000 UT) tablet [[id number]] Medication dosage: 1000 units Monthly quantity needed: 90 How many day supply requestin year Medication route: oral (PO) Medication administration time(s): daily 3 a day If taking medication PRN, reason for taking medication: N/A If this is a controlled substance do you receive this or any other controlled medication from any other doctor or facility: No Date of last refill (see medication tab): 05.24.21 [facility] 36 07-09-2024 36 Recent Visits Date Type Provider Dept 05/13/24 Office Visit Domingo Fong DO [facility] 01/08/24 Office Visit Domingo Fong DO [facility] Showing recent visits within past 365 days and meeting all other requirements Future Appointments Date Type Provider Dept 09/16/24 Appointment Domingo Fong DO [facility] Showing future appointments within next 90 days and meeting all other requirements Requested Prescriptions Pending Prescriptions Disp Refills amLODIPine (Norvasc) 10 MG tablet [Pharmacy Med Name: amLODIPine Besylate 10 MG Oral Tablet] 180 tablet 0 Sig: Take 1 tablet by mouth once daily Provider: Domingo Fong DO Verified pharmacy: yes Verified day(s) supplied: yes Verified refill(s) needed (previous prescription showing no refills in chart): Yes Have you received any controlled medications from any other provider? N/A Overdue for visit: No If yes - patient scheduled? Yes Most recent labs completed in chart? Yes Hypertension: Lab Results Component Value Date NA 138 11/15/2021 K 4.4 11/15/2021 EGFR 107 12/25/2023 BUN 12 12/25/2023 CREATININE 0.45 (L) 12/25/2023 Normal [facility] Bone density reportOrdered B y: Jorge Dodge on 06-07-2024 Study report Skeletal system DXA [facility] Imaging Services [address] [place], [place] [address] Dexa Bone Density Study MR#: [id number] Acct: [id number] Name: ADRIANE HERRERA Rep #: [id number] : 1960 F 63 From: Lia Dodge MD PCP: Dr. Domingo Fong DO Status: RE G CLI Study:Dexa Bone Density Study Date of Exam: 06/06/24 Exam# [id number] Ordering Dr: Natacha Mix FILTERING MACHINE TENDERLalo PROCEDURE: DEXA BONE DENSITY STUDY REASON FOR EXAM: Z78.0 - ASYMPTOMATIC MENOPAUSAL STATE F, age 63 y/o . TECHNIQUE: DEXA scan of the lumbar spine and both hips. COMPARISON: None. FINDINGS: T-SCORES Lumbar spine: -1.1 (BMD 0.930) Left hip: -0.3 (BMD 0.910) Right hip: -0.2 (BMD 0.916) Right hip FRAX* Results: 10 Year Probability of Fracture: Hip Fracture(1): 1.9% Major Osteoporotic Fracture(2): 14% Left hip FRAX* Results: 10 Year Probability of Fracture: Hip Fracture(1): 1.2% Major Osteoporotic Fracture(2): 13% *FRAX is a trademark of the [employer] [place] for Metabolic Bone Disease, World Health Organization (WHO) Collaborating [place]. 1-The 10-year probability of fracture may be lower than reported if the patient has received treatment. 2-Major Osteoporotic Fracture: Clinical Spine, Forearm, Hip or Shoulder. BD/Dexa Bone Density Study IMPRESSION: Osteopenia of the lumbar spine and hips. Reading Location: [facility] CC: MAUREEN Mix; Dr. Domingo Fong DO ~ Real Estate Broker: Signed [facility] Dexa Bone Density Studyon Dexa Bone Density Study [facility] Imaging Services [address] [place] [address] Dexa Bone Density Study MR#: [id number] Acct: [id number] Name: ADRIANE HERRERA Rep #: [id number] : 1960 F 63 From: Jorge Dodeg MD PCP: Dr. Domingo Fong DO Status: REG CLI Study: Dexa Bone Density Study Date of Exam: 06/06/24 Exam# [id number] Ordering Dr: Natacha Mix FILTERING MACHINE TENDERLalo PROCEDURE: DEXA BONE DENSITY STUDY REASON FOR EXAM: Z78.0 - ASYMPTOMATIC MENOPAUSAL STATE F, age 63 y/o . TECHNIQUE: DEXA scan of the lumbar spine and both hips. COMPARISON: None. FINDINGS: T-SCORES Lumbar spine: -1.1 (BMD 0.930) Left hip: -0.3 (BMD 0.910) Right hip: -0.2 (BMD 0.916) Right hip FRAX* Results: 10 Year Probability of Fracture: Hip Fracture(1): 1.9% Major Osteoporotic Fracture(2): 14% Left hip FRAX* Results: 10 Year Probability of Fracture: Hip Fracture(1): 1.2% Major Osteoporotic Fracture(2): 13% *FRAX is a trademark of the [employer] [place] for Metabolic Bone Disease, World Health Organization (WHO) Collaborating [place]. 1-The 10-year probability of fracture may be lower than reported if the patient has received treatment. 2-Major Osteoporotic Fracture: Clinical Spine, Forearm, Hip or Shoulder. BD/Dexa Bone Density Study IMPRESSION: Osteopenia of the lumbar spine and hips. Reading Location[facility] CC: MAUREEN Mix; Dr. Domingo Fong DO Real Estate Broker: Signed Normal [facility] Endocrinology Visit Reporton 05-27-2024 Endocrinology Visit Report [facility] [address] [place] [address]. [address] [place] [address] OFFICE VISIT Date of Service: 05/27/24 MR#: [id number] Acct: [id number] Name: ADRIANE HERRERA Rep #: [id number] : 1960 Provider: MAUREEN woodard Age/Sex: 63/F Location: [facility] Status: Signed Intake Vital Signs 04/01/24 11:06 05/27/24 11:45 Height 5 ft 3 in 5 ft 3 in Weight: 140 lb 138 lb BMI 24.7 24.4 BP 144/72 H 129/72 H Blood Pressure Location Lt brachial Rt brachial Position Sitting Sitting Pulse 77 73 Pulse Source Monitor Monitor Pulse Oximetry (%) 96 95 Oxygen Delivery Method room air room air Intake Visit Reasons: 8 Wk FU Chief Complaint: diabetes Is patient in pain?: No Allergies pollen extracts (pollens) Allergy (Mild, Verified 05/27/24 11:54) congestion Medications ???Medication ???Instructions ???Recorded ???Confirmed ???Type amlodipine 10 mg tablet 10 mg PO DAILY 12/26/22 05/27/24 H istory atorvastatin 40 mg tablet 40 mg PO DAILY 12/26/22 05/27/24 H istory blood-glucose meter (Accu-Chek #1 ea 12/26/22 05/27/24 History Guide Me Glucose Meter) cholecalciferol (vitamin D3) 25 1,000 unit PO DAILY 12/26/2205/27 History mcg (1,000 unit) capsule (Vitamin D3) enalapril maleate 20 mg tablet 20 mg PO DAILY 12/26/22 05/27/24 H istory insulin aspart U-100 100 unit/mL 40 unit subcut QHS 12/26/22 History subcutaneous solution (Novolog U-100 Insulin aspart) insulin glargine 100 unit/mL 10 unit subcut DAILY 12/26/2206/18 History subcutaneous cartridge lancets (Accu-Chek Softclix #100 ea 12/26/22 05/27/24 History Lancets) meloxicam 15 mg tablet 15 mg PO DAILY 12/26/22 05/27/24 H istory metformin 1,000 mg tablet 1,000 mg PO BID 12/26/22 05/27/24 History pen needle, diabetic 31 gauge x #1,200 ea 12/26/22 05/27/24 Histor y 16 (BD Ultra-Fine Mini Pen Needle) blood sugar diagnostic (Accu-Chek #100 ea 04/01/24 05/27/24 Rx Guide test strips) buspirone 5 mg tablet 5 mg PO BID 04/01/24 05/27/24 Hist ory semaglutide 2 mg/dose (8 mg/3 mL) 2 mg (0.75 mL) subcut QWEEK #3 mL 04/01/24 05/27/24 Rx subcutaneous pen injector (Ozempic) aspirin 81 mg tablet,delayed 81 mg PO QDAY 05/27/24 05/27/24 Hi story release (Adult Low Dose Aspirin) Have you fallen in the past year?: No PFSH Medical History Wears glasses Wears dentures Gastric reflux Leg cramps Non-smoker Diabetes Dysphagia Surgical History History of section History of colonoscopy Family History Father Diabetes Mother Hypertension Social History Smoking Status: Never smoker alcohol intake: never substance use type: does not use HPI HPI Chief Complaint: diabetes Details: ADRIANE HERRERA, is a 63 F who presents to the office today for evaluation and management of diabetes. A1C on 04/01/24 was 7.6%. She has lost 2 lbs since that time. Initially fasting blood sugars were 220-250, fastings are now typically <150. She has made dietary modifications. Currently taking Ozempic 2 mg qweek- tolerating well, metformin 1 gm BID with food, Lantus 45 u once daily, and Novolog 15-20 u TIDCM. She denies any blood sugars <70 or symptoms consistent with hypoglycemia. BP is stable. Currently taking amlodipine 10 mg once daily and enalapril 20 mg once daily. She is taking a daily statin. She had recent labs completed and were largely unremarkable with the exception of proteinuria. She takes meloxicam PRN for musculoskeletal pain. She has upcoming DEXA scheduled. Denies any acute concerns. ROS Const Constitutional: Positive for fatigue; No weight change ENT ENT: No dizziness/vertigo Cardio Cardiology: No chest pain at rest, chest pain with exertion, shortness of breath or palpitations Skin Skin: No wounds Endo Endocrine: Positive for fatigue; No weight change Exam Const General: cooperative, healthy appearing, comfortable and no acute distress Nutritional Appearance: average body habitus Orientation: alert, awake and oriented x3 HENMT Head: normal to inspection Ears: hearing grossly normal bilaterally Nose: external nose normal Face and sinus: normal facial exam Eyes General: appearance normal, both eyes and all related structures Alignment and Position: alignment normal Sclera: sclerae normal Neck Neck: normal visual inspection Chest Chest palpation inspection: normal inspection of the chest Resp Effort Inspection: normal respiratory effort, able to speak in complete sentences, symmetr (more content not included)... Normal [facility] 51-LY-Bitsmbu DOrdered By: Ken Mix on 05-20-2024 Vitamin D 25-Hydroxy 35.6 ng/mL [facility] Comment on above: Vitamin D 25(OH) Sta tus Range Deficiency <20 ng/mL (50nmol/L) Insufficiency 20 - 30 ng/mL (50 - 75 nmol/L) Sufficiency 30 - 100 ng/mL (75 - 250 nmol/L) Toxicity >100 ng/mL (>250 nmol/L) 36on 05-20-2024 36 Rx updated. Normal [facility] Albumin to globulin ratioOrd ered By: Natacha Mix on 05-20-2024 Albumin/Globulin [Mass ratio] 1.0 {ratio} 0.9-2.4 [facility] Bilirubin, totalOrdered By: Natacha Mix on 05-20-2024 Bilirubin [Mass/Vol] 0.70 mg/dL 0.20-1.00 [facility] Comment on above: For patients on eltr ombopag therapy, use of Dimension [place] TBIL is not recommended. Blood urea nitrogen (BUN)/cr eatinine ratioOrdered By: Natacha Mix on 05-20-2024 Urea nitrogen/Creatinine [Mass ratio] 34.6 mg/mg High 10-20 [facility] Carbon dioxide measurementOr dered By: Natacha Mix on 05-20-2024 CO2 [Moles/Vol] 29.0 mmol/L 21.0-32.0 [facility] Chloride measurementOrdered By: Natacha Mix on 05-20-2024 Chloride [Moles/Vol] 103 mmol/L 98-107 [facility] Comprehensive Metabolic Prof ilon 05-20-2024 Albumin [Mass/Vol] 3.7 g/dL Normal 3.2-5.0 [facility] Comment on above: Performed By: #### L 502.0250, L500.4100, L500.4050, L501.9520, L506.1000 #### [facility] [address] [place], [address] Albumin/Globulin [Mass ratio] 1.0 {ratio} Normal 0.9-2.4 [facility] Comment on above: Performed By: #### L 502.0250, L500.4100, L500.4050, L501.9520, L506.1000 #### [facility] [address] [place], [address] ALK P 53 U/L Normal 45-117 [facility] Comment on above: Performed By: #### L 502.0250, L500.4100, L500.4050, L501.9520, L506.1000 #### [facility] [address] [place], [address] ALT [Catalytic activity/Vol] 43 U/L Normal 13-56 [facility] Comment on above: Performed By: #### L 502.0250, L500.4100, L500.4050, L501.9520, L506.1000 #### [facility] [address] [place], [address] AST [Catalytic activity/Vol] 17 U/L Normal 15-37 [facility] Comment on above: Performed By: #### L 502.0250, L500.4100, L500.4050, L501.9520, L506.1000 #### [facility] [address] [place], [address] Bilirubin [Mass/Vol] 0.70 mg/dL Normal 0.20-1.00 [facility] Comment on above: Result Comment: For patients on eltrombopag therapy, use of Dimension [place] TBIL is not recommended. Performed By: #### L 502.0250, L500.4100, L500.4050, L501.9520, L506.1000 #### [facility] [address] [place], [address] BUN/CRE 34.6 RATIO High 10-20 [facility] Comment on above: Performed By: #### L 502.0250, L500.4100, L500.4050, L501.9520, L506.1000 #### [facility] [address] [place], [address] CA,Total 8.6 mg/dL Normal 8.5-10.1 [facility] Comment on above: Performed By: #### L 502.0250, L500.4100, L500.4050, L501.9520, L506.1000 #### [facility] [address] [place], [address] Chloride [Moles/Vol] 103 mmol/L Normal 98-107 [facility] Comment on above: Performed By: #### L 502.0250, L500.4100, L500.4050, L501.9520, L506.1000 #### [facility] [address] [place], [address] CO2 [Moles/Vol] 29.0 mmol/L Normal 21.0-32.0 [facility] Comment on above: Performed By: #### L 502.0250, L500.4100, L500.4050, L501.9520, L506.1000 #### [facility] [address] [place], [address] Creatinine [Mass/Vol] 0.43 mg/dL Low 0.55-1.02 [facility] Comment on above: Result Comment: The validity of the calculated GFR GFRAA in patients over 70 years has not been determined. Clinical correlation is essential. Performed By: #### L 502.0250, L500.4100, L500.4050, L501.9520, L506.1000 #### [facility] [address] [place], [address] EST GFR - AA 188 mL/min Normal >60 [facility] Comment on above: Result Comment: Afri can [facility] GFR Calc Performed By: #### L 502.0250, L500.4100, L500.4050, L501.9520, L506.1000 #### [facility] [address] [place], [address] GAP 6 Normal 5-15 [facility] Comment on above: Performed By: #### L 502.0250, L500.4100, L500.4050, L501.9520, L506.1000 #### [facility] [address] [place], [address] GFR/1.73 sq M.predicted among non-blacks MDRD (S/P/Bld) [Vol rate/Area] 155 mL/min/{1.73_m2} Normal >60 [facility] Comment on above: Result Comment: Non- GFR Calc Performed By: #### L 502.0250, L500.4100, L500.4050, L501.9520, L506.1000 #### [facility] [address] [place], [address] Globulin (S) [Mass/Vol] 3.8 g/dL Normal 2.2-4.2 [facility] Comment on above: Performed By: #### L 502.0250, L500.4100, L500.4050, L501.9520, L506.1000 #### [facility] [address] [place], [address] Glucose [Mass/Vol] 115 mg/dL High 74-106 [facility] Comment on above: Result Comment: Fast ing Glucose result from 100 to 125 mg/dL suggests IMPAIRED HOMEOSTASIS per A.D.A. criteria. Performed By: #### L 502.0250, L500.4100, L500.4050, L501.9520, L506.1000 #### [facility] [address] [place], [address] Potassium [Moles/Vol] 3.7 mmol/L Normal 3.5-5.1 [facility] Comment on above: Performed By: #### L 502.0250, L500.4100, L500.4050, L501.9520, L506.1000 #### [facility] [address] [place], [address] Sodium [Moles/Vol] 139 mmol/L Normal 136-145 [facility] Comment on above: Performed By: #### L 502.0250, L500.4100, L500.4050, L501.9520, L506.1000 #### [facility] [address] [place], [address] T PROT 7.5 g/dL Normal 6.4-8.2 [facility] Comment on above: Performed By: #### L 502.0250, L500.4100, L500.4050, L501.9520, L506.1000 #### [facility] [address] [place], [address] Urea nitrogen [Mass/Vol] 15 mg/dL Normal 7-18 [facility] Comment on above: Performed By: #### L 502.0250, L500.4100, L500.4050, L501.9520, L506.1000 #### [facility] [address] [place], [address] Estimated glomerular filtrat ion rate (GFR) AmericanOrdered By: Natacha Mix on 05-20-2024 Estimated GFR (MDRD) Amer 188 mL/min >60 [facility] Comment on above: GFR Calc Glomerular filtration rate ( GFR) estimationOrdered By: Natacha Mix on 05-20-2024 Estimated GFR (MDRD) Non-Af Amer 155 mL/min >60 [facility] Comment on above: Non- GFR Calc Glucose measurementOrdered B y: Natacha Mix on 05-20-2024 Glucose [Mass/Vol] 115 mg/dL High 74-106 [facility] Comment on above: Fasting Glucose resu lt from 100 to 125 mg/dL suggests IMPAIRED HOMEOSTASIS per A.D.A. criteria. High density lipoprotein (HD L) measurementOrdered By: Natacha Mix on 05-20-2024 Cholesterol in HDL [Mass/Vol] 65 mg/dL >40 [facility] Comment on above: The drugs N-Acetylcy steine and Metamizole may falsely depress this assay. Reference Range HDL <40 mg/dL Low HDL Cholesterol HDL >or= 60 mg/dL High HDL Cholesterol Laboratory - Chemistry and C hemistry - challengeOrdered By: Natacha Mix on 05-20-2024 AST [Catalytic activity/Vol] 17 U/L 15-37 [facility] Lipid Profileon 05-20-2024 Cholesterol [Mass/Vol] 146 mg/dL Normal 200 [facility] Comment on above: Result Comment: <200 mg/dL Desirable 200-240 mg/dL Borderline >240 mg/dL High Risk Performed By: #### L 502.0250, L500.4100, L500.4050, L501.9520, L506.1000 #### [facility] [address] [place], [address] Cholesterol in HDL [Mass/Vol] 65 mg/dL Normal [facility] Comment on above: Result Comment: The drugs N-Acetylcysteine and Metamizole may falsely depress this assay. Reference Range HDL <40 mg/dL Low HDL Cholesterol HDL >or= 60 mg/dL High HDL Cholesterol Performed By: #### L 502.0250, L500.4100, L500.4050, L501.9520, L506.1000 #### [facility] [address] [place], [address] Cholesterol in LDL [Mass/Vol] 62 mg/dL Normal 0-130 [facility] Comment on above: Performed By: #### L 502.0250, L500.4100, L500.4050, L501.9520, L506.1000 #### [facility] [address] [place], [address] Cholesterol in VLDL [Mass/Vol] 19 mg/dL Normal 5-40 [facility] Comment on above: Performed By: #### L 502.0250, L500.4100, L500.4050, L501.9520, L506.1000 #### [facility] [address] [place], [address] Triglyceride [Mass/Vol] 93 mg/dL Normal [facility] Comment on above: Result Comment: The drugs N-Acetylcysteine and Metamizole may falsely depress this assay. Serum Triglycerides Reference Interval Normal <150 mg/dL Borderline high 150 - 199 mg/dL High 200 - 499 mg/dL Very High > or = 500 mg/dL Performed By: #### L 502.0250, L500.4100, L500.4050, L501.9520, L506.1000 #### [facility] [address] [place], [address] Low density lipoprotein (LDL ) cholesterol measurementOrdered By: Natacha Mix on 05-20-2024 Cholesterol in LDL [Mass/Vol] 62 mg/dL 0-130 [facility] Microalb:Creat Ratio,Random URon 05-20-2024 Creatinine [Mass/Vol] 75.30 mg/dL Normal NO RAN GE EST. [facility] Comment on above: Performed By: #### L 502.0250, L500.4100, L500.4050, L501.9520, L506.1000 #### [facility] [address] [place], [address] MALB:CRE 188.6 mg/g CRE High <30 mg/g CRE [facility] Comment on above: Performed By: #### L 502.0250, L500.4100, L500.4050, L501.9520, L506.1000 #### [facility] [address] [place], [address] MICROALBUMIN,UR 142.0 mg/L Normal NO RANGE EST. [facility] Comment on above: Performed By: #### L 502.0250, L500.4100, L500.4050, L501.9520, L506.1000 #### [facility] [address] [place], [address] Potassium measurementOrdered By: Natacha Mix on 05-20-2024 Potassium [Moles/Vol] 3.7 mmol/L 3.5-5.1 [facility] Random urine microalbumin me asurementOrdered By: Natacha Mix on 05-20-2024 Urine Random Microalbumin 142.0 mg/L NO RANGE EST. [facility] Serum anion gap measurementO rdered By: Natacha Mix on 05-20-2024 Anion gap [Moles/Vol] 6 mmol/L 5-15 [facility] Serum globulin measurementOr dered By: Natacha Mix on 05-20-2024 Globulin (S) [Mass/Vol] 3.8 g/dL 2.2-4.2 [facility] Serum or plasma alanine grace otransferase (ALT) measurementOrdered By: Natacha Mix on 05-20-2024 ALT [Catalytic activity/Vol] 43 U/L 13-56 [facility] Serum or plasma albumin ruby urement (mass/volume)Ordered By: Natacha Mix on 05-20-2024 Albumin [Mass/Vol] 3.7 g/dL 3.2-5.0 [facility] Serum or plasma alkaline thais sphatase measurementOrdered By: Natacha Mix on 05-20-2024 ALP [Catalytic activity/Vol] 53 U/L 45-117 [facility] Serum or plasma calcium ruby urement (mass/volume)Ordered By: Natacha Mix on 05-20-2024 Calcium [Mass/Vol] 8.6 mg/dL 8.5-10.1 [facility] Serum or plasma cholesterol measurement (mass/volume)Ordered By: Natacha Mix on 05-20-2024 Cholesterol [Mass/Vol] 146 mg/dL <200 [facility] Comment on above: <200 mg/dL Desirable 200-240 mg/dL Borderline >240 mg/dL High Risk Serum or plasma creatinine m easurement (mass/volume)Ordered By: Natacha Mix on 05-20-2024 Creatinine [Mass/Vol] 0.43 mg/dL Low 0.55-1.02 [facility] Comment on above: The validity of the calculated GFR & GFRAA in patients over 70 years has not been determined. Clinical correlation is essential. Serum or plasma urea nitroge n measurement (mass/volume)Ordered By: Natacha Mix on 05-20-2024 Urea nitrogen [Mass/Vol] 15 mg/dL 7-18 [facility] Sodium levelOrdered By: Rohit Mix on 05-20-2024 Sodium [Moles/Vol] 139 mmol/L 136-145 [facility] TSH QnOrdered By: Natacha woodard on 05-20-2024 Thyroid Stimulating Hormone (TSH) 1.290 uIU/mL 0.358-3.740 [facility] Thyroid Stim Hormone (TSH)on 05-20-2024 TSH 1.290 uIU/mL Normal 0.358-3.740 [facility] Comment on above: Performed By: #### L 502.0250, L500.4100, L500.4050, L501.9520, L506.1000 #### [facility] [address] [facility] [place], [address] Total proteinOrdered By: Carmelina Mix on 05-20-2024 Protein [Mass/Vol] 7.5 g/dL 6.4-8.2 [facility] Triglycerides measurementOrd ered By: Natacha Mix on 05-20-2024 Triglyceride [Mass/Vol] 93 mg/dL <199 [facility] Comment on above: The drugs N-Acetylcy steine and Metamizole may falsely depress this assay.Serum Triglycerides Reference Interval Normal <150 mg/dL Borderline high 150 - 199 mg/dL High 200 - 499 mg/dL Very High > or = 500 mg/dL Urine albumin/creatinine rat io for detection of microalbuminuriaOrdered By: Natacha Mix on 05-20-2024 Urine Microalbumin/Creatinine Ratio 188.6 mg/g CRE High <30 [facility] Urine creatinine measurement (mass/volume)Ordered By: Natacha Mix on 05-20-2024 Creatinine (U) [Mass/Vol] 75.30 mg/dL NO RANGE EST. [facility] Very low density lipoprotein (VLDL) cholesterol measurementOrdered By: Natacha Mix on 05-20-2024 VLDL Cholesterol 19 mg/dL 5-40 [facility] Vitamin D,25 Hydroxyon 05-20 Vitamin D 25-OH 35.6 ng/mL Normal [facility] Comment on above: Result Comment: Rama min D 25(OH) Status Range Deficiency <20 ng/mL (50nmol/L) Insufficiency 20 - 30 ng/mL (50 - 75 nmol/L) Sufficiency 30 - 100 ng/mL (75 - 250 nmol/L) Toxicity >100 ng/mL (>250 nmol/L) Performed By: #### L 502.0250, L500.4100, L500.4050, L501.9520, L506.1000 #### [facility] [address] [place], [place], [address] 36on 05-17-2024 36 Name of caller: Paty parish Debbie Keenan) Contact phone number: [phone] Relationship to Patient: Pharmacy Provider: Dr. Fong Practice: [facility] [place] Chief Complaint/Reason for Call: Requesting call back to get specific instructions for Rx Blood Glucose Monitoring Suppl (Blood Glucose Monitor System) w/Device kit [[id number]]. Please advise Best time of day caller can be reached: Any AM Patient advised that office/PCP has 24-48 business hours to return their call: No Normal [facility] 36 See other encounter Normal [facility] 36 Natividad Arriola15 hour s ago (4:19 PM) LS Name of caller: Dora Contact phone number: [phone] [facility] Provider: Dr. Fong Practice: [facility] [place] Chief Complaint/Reason for Call: Caller is requesting an Accu-check glucometer for the patient, states the patient dropped and broke the one she had. Please advise, thank you. Best time of day caller can be reached: Any Patient advised that office/PCP has 24-48 business hours to return their call: Yes [facility] 05-16-2024 36 Name of caller: Paty parish Contact phone number: [phone] Relationship to Patient: Becky Pharmacy Provider: Dr. Fong Practice: [facility] Chief Complaint/Reason for Call: Caller is requesting an Accu-check glucometer for the patient, states the patient dropped and broke the one she had. Please advise, thank you. Best time of day caller can be reached: Any Patient advised that office/PCP has 24-48 business hours to return their call: Yes [facility] 05-14-2024 29 Addended by: DOMINGO GONZALES on: 05/14/2024 12:41 PM Modules accepted: Orders [facility] 29 Addended by: ASHLEY DE LA ROSA on: 05/14/2024 10:43 AM Modules accepted: Orders [facility] 05-14-2024 36 Please verify which Barber Apprentice you want pt be referred to [facility] 05-13-2024 36 Orders for stress te st pended for dx and doctor's signature [facility] ECG 12 leadOrdered By: Fabricio Garcia on 05-13-2024 [facility] Office Visiton 05-13-2024 Follow-up visit [id number] Des Herrera 1960 F Date Provider Department Center 05/13/2024 [id number] FONG F [facility] Family History Problem Relation Age of Onset Alzheimer's disease Mother Comments: 2012 Heart disease Mother Comments: Afib - CHF at age 84 Diabetes type II Mother Comments: oral Kidney disease Father Comments: CRF Diabetes Father Comments: age 64 Diabetes Sister Diabetes Sister Diabetes Sister Diabetes Sister No Known Problems Sister No Known Problems Sister Stroke Brother 70 Comments: ICH due to aneurysm, HTN, smoker, ETOH Diabetes type II Brother Diabetes Brother Comments: insulin Other Brother Comments: murdered in [facility] Diabetes Maternal Grandfather Comments: in 80s and 90s Family Status - Relation Status Age at Mother 84 Father 64 Sister Alive Sister Alive Sister Alive Sister Alive Sister Alive Sister Alive Brother Brother Alive Brother Alive Brother Maternal Grandmother Maternal Grandfather Paternal Grandmother Paternal Grandfather Level of Service:27610 [place] OFFICE/OUTPATIENT ESTABLISHED MOD MDM 30 MIN Reason for Visit and Comments: Follow-up [951749] - Med Check Normal [facility] Progress Noteon 05-13-2024 Progress Note [facility] - [address] [facility] [address] Visit type: Established Patient Reason for Visit: Follow-up (Med Check ) Assessment / Plan: Adriane was seen today for follow-up. Diagnoses and all orders for this visit: Other chest pain (Primary) Comments: Resolved but need to exclude coronary disease, stress test Orders: - ECG 12 lead; Future - ECG 12 lead Mixed hypercholesterolemia and hypertriglyceridemia Comments: Stable, continue Lipitor Diabetic retinopathy associated with type 2 diabetes mellitus, macular edema presence unspecified, unspecified laterality, unspecified retinopathy severity (HCC) Comments: Stable, continue follow-up with rice cleaning machine tender Breast cancer screening by mammogram - Bilateral screening mammogram with tomosynthesis; Future Essential hypertension Comments: Stable, continue enalapril and amlodipine Other orders - busPIRone (Buspar) 5 MG tablet; Take 1 tablet (5 mg) by mouth 2 times daily. One bid to prevent anxiety - insulin aspart (NovoLOG) 100 UNIT/ML pen; 24 units 3 x a day - insulin glargine (Lantus SoloStar) 100 UNIT/ML pen; 50 Units q day. - B-D UF III MINI PEN NEEDLES 31G X 5 MM misc; Use as instructed - glucose blood (Accu-Chek Guide) test strip; 1 EACH BY IN VITRO ROUTE DAILY NEEDED. E11.9 Subjective: Patient ID: Adriane Herrera is a 63 y.o. female. HPI non-smoker with history of insulin-dependent diabetes, hypertension hyperlipidemia presents for overall checkup. Recently saw rice cleaning machine tender and now on Ozempic with improvement of her glucose levels. Was on Trulicity previously. A1c not at goal but glucose levels are better. Patient has had a few events over the last 3 months where she had chest pain while working. Somewhat startling and it resolved after a few minutes of rest. Was substernal and did not radiate to the neck back or arms. Not associated with nausea or diaphoresis or palpitations. Has a strong family history of diabetes but no one with coronary disease. She denies cough or congestion. No heartburn or dysphagia. Symptoms seem to occur with physically demanding activities. Review of Systems no recent phlegm or fever. No sore throat or cough. Will try to get pneumococcal vaccine [facility]. Denies PND orthopnea claudication or edema. Overdue for mammogram. Colonoscopy up-to-date. Needs podiatry referral for her hypertrophic toenails. No unhealing skin lesions. No new stresses or worry. Excited about her only daughter getting in September. No Known Allergies Current Outpatient Medications on File Prior to Visit Medication Sig Dispense Refill Accu-Chek Softclix Lancets lancets TEST BLOOD SUGAR DAILY DIRECTED amLODIPine (Norvasc) 10 MG tablet Take 1 tablet (10 mg) by mouth daily. 90 tablet 1 aspirin 81 MG chewable tablet Chew 81 mg Once. atorvastatin (Lipitor) 40 MG tablet Take 1 tablet (40 mg) by mouth daily for 90 doses. 90 tablet 1 cholecalciferol (Vitamin D-3) 25 MCG (1000 UT) tablet TAKE THREE TABLETS BY MOUTH EVERY DAY enalapril (Vasotec) 20 MG tablet TAKE 1 TABLET BY MOUTH EVERY DAY IN THE MORNING 30 tablet 5 meloxicam (Mobic) 15 MG tablet TAKE 1 TABLET (15 MG) BY MOUTH DAILY FOR 90 DOSES. (Patient taking differently: Take 15 mg by mouth daily as needed.) 90 tablet 0 metFORMIN (Glucophage) 1000 MG tablet TAKE 1 TABLET (1,000 MG) BY MOUTH IN THE MORNING AND IN THE EVENING WITH MEALS 180 tablet 1 Ozempic, 2 MG/DOSE, 8 MG/3ML solution pen-injector INJECT 2MG SUBCUTANEOUSLY ONCE A WEEK [DISCONTINUED] Accu-Chek Guide test strip 1 EACH BY IN VITRO ROUTE DAILY NEEDED. E11.9 100 each 3 [DISCONTINUED] B-D UF III MINI PEN NEEDLES 31G X 5 MM mis USE TO INJECT INSULIN DAILY [DISCONTINUED] busPIRone (Buspar) 5 MG tablet Take 1 tablet (5 mg) by mouth 2 times daily. One bid to prevent anxiety 60 tablet 2 [DISCONTINUED] insulin aspart (NovoLOG) 100 UNIT/ML pen 24 units 3 x a day 10 mL 3 [DISCONTINUED] insulin glargine (Lantus SoloStar) 100 UNIT/ML pen 50 Units q day. 15 Pen 3 [DISCONTINUED] dulaglutide (Trulicity) 3 MG/0.5ML solution pen-injector Inject 3 mg under the skin 1 (one) time per week. (Patient not taking: Reported on 05/13/2024) 4 each 2 No current facility-administered medications on file prior to visit. Patient Active Problem List Diagnosis NSAID long-term use Contracture of finger joint Mixed hypercholesterolemia and hypertriglyceridemia Diabetes mellitus (HCC) CTS (carpal tunnel syndrome) Essential hypertension Adjustment disorder with anxious mood Diabetic retinopathy (HCC) Patellofemoral arthritis of right knee Social History Tobacco Use Smoking status: Never Smokeless tobacco: Never Substance Use Topics Alcohol use: No Alcohol/week: 0.0 standard drinks of alcohol Past Surgical History: Procedure Laterality Date BREAST BIOPSY Left 1989 SECTION (HISTORICAL) x3 (more content not included)... Normal [facility] Endocrinology Visit Reporton 04-01-2024 Endocrinology Visit Report [facility] [address] [place] [address] OFFICE VISIT Date of Service: 04/01/24 MR#: [id number] Acct: [id number] Name: ADRIANE HERRERA Rep #: [id number] : 1960 Provider: MAUREEN woodard Age/Sex: 63/F Location: [facility] Status: Signed Intake Vital Signs 01/10/23 07:55 04/01/24 11:06 Height 5 ft 3 in 5 ft 3 in Weight: 140 lb BMI 24.7 BP 144/72 H Blood Pressure Location Lt brachial Position Sitting Pulse 77 Pulse Source Monitor Pulse Oximetry (%) 96 Oxygen Delivery Method room air Intake Visit Reasons: Diabetes Chief Complaint: establish care-diabetes Is patient in pain?: No Allergies No Known Allergies Allergy (Verified 04/01/24 11:13) Medications ???Medication ???Instructions ???Recorded ???Confirmed ???Type amlodipine 10 mg tablet 10 mg PO DAILY 12/26/22 04/01/24 History atorvastatin 40 mg tablet 40 mg PO DAILY 12/26/22 04/01/24 History blood-glucose meter (Accu-Chek #1 ea 12/26/22 12/26/22 History Guide Me Glucose Meter) cholecalciferol (vitamin D3) 25 1,000 unit PO DAILY 12/26/22 04/01/24 History mcg (1,000 unit) capsule (Vitamin D3) enalapril maleate 20 mg tablet 20 mg PO DAILY 12/26/22 04/01/24 History insulin aspart U-100 100 unit/mL 40 unit subcut QHS 12/26/22 04/01/24 History subcutaneous solution (Novolog U-100 Insulin aspart) insulin glargine 100 unit/mL 10 unit subcut DAILY 12/26/22 04/01/24 History subcutaneous cartridge lancets (Accu-Chek Softclix #100 ea 12/26/22 12/26/22 History Lancets) meloxicam 15 mg tablet 15 mg PO DAILY 12/26/22 04/01/24 History metformin 1,000 mg tablet 1,000 mg PO BID 12/26/22 04/01/24 History pen needle, diabetic 31 gauge x #1,200 ea 12/26/22 12/26/22 History 3/16 (BD Ultra-Fine Mini Pen Needle) blood sugar diagnostic (Accu-Chek #100 ea 04/01/24 04/01/24 Rx Guide test strips) buspirone 5 mg tablet 5 mg PO BID 04/01/24 04/01/24 History semaglutide 2 mg/dose (8 mg/3 mL) 2 mg (0.75 mL) subcut QWEEK #3 mL 04/01/24 04/01/24 Rx subcutaneous pen injector (Ozempic) Have you fallen in the past year?: No PFSH Medical History Wears glasses Wears dentures Gastric reflux Leg cramps Non-smoker Diabetes Dysphagia Surgical History History of section History of colonoscopy Family History Father Diabetes Mother Hypertension Social History Smoking Status: Never smoker alcohol intake: never substance use type: does not use HPI HPI Chief Complaint: establish care-diabetes Details: ADRIANE HERRERA, is a 63 F who presents to the office today for evaluation and management of diabetes. Referred by PCP for care of poorly controlled type 2 diabetes. Diagnosed with diabetes approximately 35 years ago. + family history. Complications include retinopathy and macular edema. A1C today is 7.6%. Reports her highest A1C was 8.9% several years ago. Currently taking metformin 1 gm BID- not with food, Lantus 45 u once daily, Novolog 15-20 u based on carb servings, and Trulicity 3 mg qweek. She recently switched to Medicare for insurance she was told Ozempic is preferred over Trulicity. Reports typical fasting blood sugar is 220-250. She denies any recent lows. 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 She is concerned about complications d/t diabetes. She has HTN. Currently taking amlodipine 10 mg once daily and enalapril 20 mg once daily. Hx of vitamin D deficiency, she takes vitamin D 1,000 iu once daily. She is post menopausal. Labs are up to date with PCP and are unremarkable. Denies any acute concerns. ROS Const Constitutional: No fatigue or weight change ENT ENT: No dizziness/vertigo Cardio Cardiology: No chest pain at rest, chest pain with exertion, shortness of breath or palpitations Musc Musculoskeletal: Positive for joint pain and back pain Skin Skin: No wounds Endo Endocrine: No fatigue or weight change Exam Const General: cooperative, healthy appearing, comfortable and no acute distress Nutritional Appearance: average body habitus Orientation: alert, awake and oriented x3 HENMT Head: normal to inspection Ears: hearing grossly normal bilaterally Nose: external nose normal Face and sinus: normal facial exam Eyes General: appearance normal, both eyes and all related structures Alignment and Position: alignment normal Sclera: sclerae normal Neck Neck: normal visual inspection Chest Chest palpation inspection: normal inspec (more content not included)... Normal [facility] - Hematology and Cell countson 04-01-2024 HbA1c (Bld) [Mass fraction] 7.6 % High 4.2-6.3 [facility] 36on 03-14-2024 36 Medication name: insulin aspart (NovoLOG) 100 UNIT/ML pen Medication dosage: 100 units Monthly quantity needed: 10 mL How many day supply requestin days Medication route: intramuscular injection (IM) Medication administration time(s): 3 times a day (TID) If taking medication PRN, reason for taking medication: N/A If this is a controlled substance do you receive this or any other controlled medication from any other doctor or facility: No Ordering provider: Dr. Fong Date of last office visit: 01.08.2024 Date of next office visit: 05.13.2024 Date of last refill: (see medication tab): 01.08.2024 Updated/Validated preferred pharmacy: Yes [facility] [address] [place] [address] Ph. [phone] Patient instructed to contact the pharmacy prior to picking up the medication: Yes [address] 02-26-2024 36 Lab results faxed 02/26/24 at 10:40am [place] [id number] Name of caller: Edit a Contact phone number: [phone] Relationship to Patient: patient Provider: [facility] Practice: [facility] Chief Complaint/Reason for Call: Patient called and said that she needs her lab work sent to the [facility]. She said they can be faxed to [phone]. Please advise Best time of day caller can be reached: any Patient advised that office/PCP has 24-48 business hours to return their call: No [place] [address]on 01-30-2024 36 Talked to patient an d was able to relay message of ATB called in. [place] [address] Last OV:01/08/24 Scheduled:05/13/24 [place] [address] S: Patient spoke wit h [facility] nurse regarding cough and headache B: Onset of symptoms/concern 5 days A: Patient experiencing moderate productive cough with yellow phlegm, moderate headache located on forehead and around eyes that comes and goes, and runny nose with clear drainage. Similar symptoms in past and was treated with antibiotic for sinus infection unknown name of medication. Denies shortness of breath, fever, and chest pain. Taking tylenol with little relief. Patient requesting medication called into pharmacy. R: Please call patient when script has been sent to pharmacy or with further recommendations. Pharmacy and allergies verified. Declined next day office visit. Care advise provided to stay hydrated, utilize cold pack, and discussed tylenol frequency. Patient understands care advice. No further needs at this time. Patient instructed to call back with new or worsening symptoms. Reason for Disposition Cough Protocols used: Cough - Acute Tfirnvhgyw-NZONP-XD [facility] ED NOTEon 12-25-2022 ED NOTE HNO ID: [id number] Author: Lisa Obrien, RN Service: Emergency Medicine Author Type: Registered Nurse Type: ED Notes Filed: 12/25/2022 12:21 AM Note Text: Patient informed: the name of medication, why we are giving it, possible side effects, what they may expect to feel, and was offered a chance to ask questions, prior to the administration of tetracaine and fluorescein Normal [facility] ED NOTE HNO ID: [id number] Author: Lisa Obrien RN Service: Emergency Medicine Author Type: Registered Nurse Type: ED Notes Filed: 12/25/2022 12:17 AM Note Text: Pt to ED with c/o I picked up a pumpkin around 1730 and it had a white maira powder and it got in my right eye Normal [facility] ED PROV NOTEon 12-25-2022 ED PROV NOTE HNO ID: [id number] Author: Estee Lyles DO Service: Emergency Medicine Author Type: Physician Type: ED Provider Notes Filed: 12/25/2022 4:02 AM Note Text: ED Provider Note Patient Name: Adriane Herrera : 1960 SERVICE DATE: 12/25/22 History Patient presents with: Eye Injury Adriane Herrera is a 62 year old female with history of multiple chronic medical problems who presents with Eye Injury. - Symptoms began around 530 pm this afternoon. - Severity: moderate - Timing: constant - Quality: feels like something in her eye - Symptoms are associated with right eye redness, foreign body sensation, light sensitivity. - Symptoms are not associated with headache, vision changes, fever, nausea, vomiting. Patient presents with right eye irritation. She states that she picked up a pumpkin around 5:30 PM and had a white dust on it that got in her right eye. She states she did try flushing her eye out afterwards. She states she does not wear contacts. She denies any vision changes. No headache, nausea or vomiting. PAST MEDICAL HISTORY Diagnosis Date Diabetic retinopathy (HCC) Essential hypertension ANIBAL (generalized anxiety disorder) Hypercholesteremia Type 2 diabetes mellitus (HCC) PAST SURGICAL HISTORY Procedure Laterality Date DELIVERY ONLY , low cervicalX 3 COLONOSCOPY FLX DX W/COLLJ SPEC WHEN PFRMD 05/30/2011 Colonoscopy LIG/TRNSXJ FLP TUBE ABDL/VAG APPR UNI/BI SALPINGECTOMY FOR AN ECTOPIC FAMILY HISTORY Problem Relation Age of Onset Diabetes Mother Hypertension Mother other (Brain Aneurysm [Other]) Mother Memory loss Alzheimer's Disease Mother Heart disease Mother Diabetes Father Kidney Disease Father Diabetes Sister Diabetes Sister Diabetes Sister Cancer Sister bladder cancer other (other) Brother Cancer Maternal Grandfather Social History Tobacco Use Smoking status: Never Smokeless tobacco: Never Vaping Use Vaping Use: Never used Substance and Sexual Activity Alcohol use: No Drug use: No Sexual activity: Yes Partners: Male Comment: Postmenopausal ALLERGIES No Known Allergies Review of Systems Constitutional: Negative for fever. HENT: Negative for facial swelling and trouble swallowing. Eyes: Positive for photophobia, pain and redness. Negative for visual disturbance. Respiratory: Negative for shortness of breath. Cardiovascular: Negative for chest pain. Gastrointestinal: Negative for nausea and vomiting. Musculoskeletal: Negative for neck stiffness. Skin: Negative for rash. Neurological: Negative for dizziness, weakness and headaches. Psychiatric/Behavioral : Negative for agitation and confusion. Physical Exam Vitals [12/25/22 0013] BP Pulse Temp Temp src Resp SpO2 Weight Height 157/69 88 36.2 ?C (97.2 ?F) Temporal 18 98 % 64.8 kg (142 lb 12.8 oz) 1.6 m (5' 3) Physical Exam Vitals and nursing note reviewed. Constitutional: Appearance: She is not toxic-appearing or diaphoretic. HENT: Head: Normocephalic and atraumatic. No right periorbital erythema or left periorbital erythema. Eyes: General: Lids are normal. Lids are everted, no foreign bodies appreciated. No scleral icterus. Right eye: No discharge. Left eye: No discharge. Extraocular Movements: Extraocular movements intact. Conjunctiva/sclera: Right eye: Right conjunctiva is injected. Left eye: Left conjunctiva is not injected. Pupils: Pupils are equal, round, and reactive to light. Right eye: Fluorescein uptake present. Cyndi exam negative. Slit lamp exam: Right eye: No foreign body, hyphema or hypopyon. Comments: Corneal abrasion at the 10 - 11 o' clock position. Negative cyndi's sign. No visible foreign body. Cardiovascular: Rate and Rhythm: Normal rate and regular rhythm. Pulses: Normal pulses. Pulmonary: Effort: Pulmonary effort is normal. Breath sounds: Normal breath sounds. Musculoskeletal: Cervical back: Neck supple. Skin: General: Skin is warm and dry. Capillary Refill: Capillary refill takes less than 2 seconds. Neurological: Mental Status: She is alert and oriented to person, place, and time. GCS: GCS eye subscore is 4. GCS verbal subscore is 5. GCS motor subscore is 6. Psychiatric: Mood and Affect: Mood normal. Behavior: Behavior normal. Diagnostic Testing ED Labs Ordered and Reviewed - No data to display Procedures ED Course / Clinical Impression Clinical Impressions as of 12/25/22 0046 Abrasion of right cornea, initial encounter MDM / Disposition / Plan Visual Acuity Left Eye (OS) 20/50 - Both Eyes (OU) 20/50 - Right Eye (OD) 20/50 - Patient has corneal abrasion on exam. Negative cyndi's sign. With reported white dust from pumpkin that got in her eye will irrigate eye as well with saline. I do not have pH paper to assess pH of eye at this time. I called lab, as well, and they do not have it either. (more content not included)... Normal [facility] ECG 12 leadon 11-14-2022 [facility] CNOVon 05-23-2022 CNOV Office Visit (GENSWS ) ADRIANE HERRERA ([id number]) 1960 F Date Time Provider Department 05/23/22 9:30 AM CAREY GUTIERRES During your visit today, we recorded the following information about you: Temperature Pulse Blood pressure Weight 97.4 degrees 89/minute 110/72 68 kg Height 1.626 m Ivette Schilling LPN 05/23/2022 9:41 AM Signed REVIEW OF SYSTEMS: General: The patient denies fatigue, denies weight loss, denies weight gain, denies feeling hot, and denies feelings of cold. Eyes: The patient denies glaucoma, denies eye injury/surgery, wears glasses or contacts. Ear/Nose/Throat: The patient denies allergies, denies hayfever, denies ear infections, and denies bloody noses. Cardiovascular: The patient denies chest pain, denies heart disease, denies high blood pressure,denies cardiac stent, denies prior heart attack, denies irregular heart beat, denies high cholesterol, denies poor circulation, denies heart failure, other cardiac issues, denies claudication, denies cold feet, denies peripheral arterial stent. Respiratory: The patient denies tuberculosis, denies pneumonia, denies frequent cough, denies pulmonary embolism, denies shortness of breath, and denies coughing up blood. Gastrointestinal: The patient denies difficulty swallowing, NOTES acid reflux, denies ulcers, denies vomiting, denies jaundice/hepatitis, denies gallbladder problems, denies black or tarry stools, denies hemorrhoids, denies bleeding from rectum, denies diverticulitis, denies constipation, denies diarrhea, denies loss of stool control, and denies hernias. Kidney/Bladder: The patient denies kidney stones, denies urine infections, and denies bloody urine. Skin: The patient denies a history of skin cancer, denies bleeding/changing moles, and denies a history of skin rash. Neurologic: The patient denies a history of epilepsy/convulsions, denies headaches, denies head/spinal injuries, and denies stroke/TIA. Psychiatric: The patient denies psychiatric medications, denies depression, and denies voices, denies substance abuse. Endocrine: The patient denies thyroid disorders, NOTES diabetes, and denies hormonal problems. Hematologic: The patient denies a history of bruising, denies bleeding, and denies anemia, denies blood clots. Infections: The patient denies a history of measles and mumps, denies rheumatic fever, and denies sexually transmitted diseases. Musculoskeletal: The patient denies back pain/injury, denies back problems, denies sciatica, denies knee/foot trouble, denies arthritis, or denies gout. When was patient's last Mammogram screening? 02/2022 Last Colonoscopy: 2012 ELLE Paez PA-C 05/30/2022 4:44 PM Signed HISTORY AND PHYSICAL Adriane Herrera 1960 REFERRING PHYSICIAN: Domingo Fong DO CHIEF COMPLAINT: Consult (colonoscopy) HPI: The patient is a 61 year old female referred for endoscopy. Adriane notes no colon complaints. Patient denies any change in bowel habits, blood in stools, black tarry stools or abdominal pain. Denies family history of colon issues. The patient NOTES acid reflux and weight change. Adriane has undergone prior endoscopy. Last colonoscopy 05/30/[address] Alvarez. Tortuous colon noted. Patient denies any recall or discomfort with that procedure. PAST MEDICAL HISTORY Diagnosis Date Diabetic retinopathy (HCC) Essential hypertension ANIBAL (generalized anxiety disorder) Hypercholesteremia Type 2 diabetes mellitus (HCC) PAST SURGICAL HISTORY Procedure Laterality Date DELIVERY ONLY , low cervicalX 3 COLONOSCOPY FLX DX W/COLLJ SPEC WHEN PFRMD 05/30/2011 Colonoscopy LIG/TRNSXJ FLP TUBE ABDL/VAG APPR UNI/BI SALPINGECTOMY FOR AN ECTOPIC Current Outpatient Medications Medication Sig amLODIPine (NORVASC) 10 mg tablet Take 1 tablet by mouth once daily. atorvastatin (LIPITOR) 40 mg tablet Take 40 mg by mouth. cholecalciferol (VITAMIN D3) 1,000 unit tab tablet Take 3 tablets by mouth once daily. citalopram hydrobromide (CELEXA) 10 mg tablet Take 10 mg by mouth. dulaglutide (TRULICITY) 3 mg/0.5 mL pen injector Inject 3 mg subcutaneously. meloxicam (MOBIC) 15 mg tablet Take 15 mg by mouth. INSULIN ASPART (NOVOLOG SUBCUTANEOUS) Inject subcutaneously. ENALAPRIL MALEATE 10 MG TAB ONE TAB DAILY GLUCOPHAGE 500 MG TAB Take by mouth. metformin LANTUS 100 UNIT/ML SUB-Q Use as directed. ZETIA 10 MG TAB Take one(1) tablet daily. No current facility-administered medications for this visit. ALLERGIES: Patient has no known allergies. PERSONAL HISTORY: Social History Tobacco Use Smoking status: Never Smokeless tobacco: Never Substance Use Topics Alcohol use: No Drug use: No FAMILY HISTORY: FAMILY HISTORY Problem Relation Age of Onset Diabetes Mother Hypertension Mother other (Brain Aneurysm [Other]) Mother (more content not included)... Normal [facility] DBT Breast - bilateral jaclyne sophie 03-01-2022 No mammographic evidence of malignancy. Markings on images: BB's = Nipples; skin lesions Open chenega = Palpable Line = Scar ASSESSMENT: Category 1 Negative RECOMMENDATION: Routine screening mammogram in 1 year. Bilateral Report Dictated on Electronically Signed By: Veronique Schneider Electronically Signed Date/Time: 03/01/2022 12:18 PM [facility] [employer] [facility] Patient Name: ADRIANE LUA Exam Date/Time: 02/28/2022 15:10 Procedure: BI MAMMOGRAM SCREENING TOMOSYNTHESIS BILATERAL Ordering Provider: FONG EUGENE Reason For Exam: Image views: 2D Bilateral CC and MLO views were acquired. 3D Bilateral CC and MLO views were acquired. Prior study Comparisons: 01/23/2017 Tissue Density: BIRADS B - There are scattered fibroglandular densities. Images were reviewed with CAD. Findings: No suspicious masses, architectural distortions or suspiciously clustered microcalcifications are identified. There is no evidence of skin thickening or nipple retraction. There are no significant changes when compared with prior studies. [facility] Veronique Schneider MD - 03/01/2022 Patient Name: ADRIANE HERRERA Exam Date/Time: 02/28/2022 15:10 Procedure: BI MAMMOGRAM SCREENING TOMOSYNTHESIS BILATERAL Ordering Provider: FONG EUGENE Reason For Exam: Image views: 2D Bilateral CC and MLO views were acquired. 3D Bilateral CC and MLO views were acquired. Prior study Comparisons: 01/23/2017 Tissue Density: BIRADS B - There are scattered fibroglandular densities. Images were reviewed with CAD. Findings: No suspicious masses, architectural distortions or suspiciously clustered microcalcifications are identified. There is no evidence of skin thickening or nipple retraction. There are no significant changes when compared with prior studies. IMPRESSION: No mammographic evidence of malignancy. Markings on images: BB's = Nipples; skin lesions Open chenega = Palpable Line = Scar ASSESSMENT: Category 1 Negative RECOMMENDATION: Routine screening mammogram in 1 year. Bilateral Report Dictated on Electronically Signed By: Veronique Schneider Electronically Signed Date/Time: 03/01/2022 12:18 PM EST [facility] scree ningOrdered By: Veronique Schneider on 03-01-2022 [facility] [employer] Work Phone: DBT Breast - bilateral scree [id number] 02-28-2022 Radiology Study observation (narrative) [facility] will MG Breast Tomosynthesis Scr Blon 01-23-2017 MG Breast Tomosynthesis Scr Bl Patient Name: ADRIANE HERRERA Mammography Exam Date/Time 01/23/2017 10:27:16 EDT Exam MG Breast Tomosynthesis BI Scr Ordering Physician DO FONG EUGENE F. Accession Number [id number] CPT4 Codes 14549 (MG Breast Tomosynthesis Scr Bl), 45170 (MG MAMMO 2D SCREENING) Reason For Exam screening Report PATIENT HISTORY: Patient is postmenopausal. No known family history of cancer. No Hormone Replacement Therapy Patient has never smoked. Patient's BMI is 26.6. REASON FOR EXAM: screening, asymptomatic. PROCEDURE: MG BREAST TOMOSYNTHESIS BL SCR: JANUARY 23, 2017 - 2D/3D Procedure 3D Bilateral CC and MLO view(s) were taken. 2D Bilateral CC and MLO view(s) were taken. Prior study comparison: July 27, 2015, bilateral screening mammogram performed at [facility]. January 28, 2013, bilateral screening mammogram, performed at [facility]. The breast tissue is heterogeneously dense, which could obscure underlying abnormalities. No suspicious masses, architectural distortions or suspiciously clustered microcalcifications are identified. There is no evidence of skin thickening or nipple retraction. There are no significant changes when compared with prior studies. Markings on images: BB's = Nipples; skin lesions Open chenega = Palpable Line = Scar 2D digital mammography and tomosynthesis imaging were performed and reviewed with CAD. ASSESSMENT: Category 1 Negative No mammographic evidence of malignancy. RECOMMENDATION: Routine screening mammogram of both breasts in 1 year. Final Signed Date and Time: 01/23/2017 11:24 am Signed by: MD HALL LAURA [facility] [facility] Vital Signs Date Time Vital Sign Value Performing Clinician Faci lity 09-16-2024 10:36-0400 Body height 162.6 cm Domingo Maganzafar [employer] Work Phone: [place] 09-16-2024 10:36-0400 Body mass index (BMI) [Ratio] 22.69 kg/m2 Domingo Fong [employer] Phone: [facility] 09-16-2024 10:36-0400 Body temperature 97.3 [degF] Domingo Fnog [employer] Work Phone: [facility] 09-16-2024 10:36-0400 Body weight 59.97 kg Domingo Fong DO Who@ Phone: [facility] 09-16-2024 10:36-0400 Diastolic blood pressure 59 mm[Hg] Domingo Fong [employer] Phone: [facility] 09-16-2024 10:36-0400 Heart rate 87 /min Domingo Fong DO Work Phone: [employer] 09-16-2024 10:36-0400 SaO2% (BldA) [Mass fraction] 96 % Domingo Fong [employer] Phone: [facility] 09-16-2024 10:36-0400 Systolic blood pressure 111 mm[Hg] Domingo Maganantoniamaik [employer] Phone: [facility] 05-27-2024 11:45-0500 Body height 160.[address] Domingo Fong [employer] Work Phone: [facility] 05-27-2024 11:45-0500 Body mass index (BMI) [Ratio] 24.4 kg/m2 Dr. Domingo Fong DO Work Phone: [facility] 05-27-2024 11:45-0500 Body weight 62.[address] Domingo Fong DO Work Phone: [facility] 05-27-2024 11:45-0500 Diastolic blood pressure 72 mm[Hg] Dr. Domingo Fong DO Work Phone: [facility] 05-27-2024 11:45-0500 Heart rate 73 /min Dr. Domingo Fong DO Work Phone: [facility] 05-27-2024 11:45-0500 SaO2% (BldA) [Mass fraction] 95 % Dr. Domingo Fong DO Work Phone: [facility] 05-27-2024 11:45-0500 Systolic blood pressure 129 mm[Hg] Dr. Domingo Fong DO Work Phone: [facility] 05-13-2024 11:32-0500 Body height 162.6 cm Domingo Fong DO Work Phone: [facility] 05-13-2024 11:32-0500 Body mass index (BMI) [Ratio] 24.41 kg/m2 Domingo Fong DO Work Phone: [facility] 05-13-2024 11:32-0500 Body temperature 97.7 [degF] Domingo Fong DO Work Phone: [facility] 05-13-2024 11:32-0500 Body weight 64.5 kg Domingo Fong DO Work Phone: [facility] 05-13-2024 11:32-0500 Diastolic blood pressure 62 mm[Hg] Domingo Fong DO Work Phone: [facility] 05-13-2024 11:32-0500 Heart rate 94 /min Domingo Fong DO Work Phone: [facility] 05-13-2024 11:32-0500 SaO2% (BldA) [Mass fraction] 99 % Domingo Fong DO Work Phone: [facility] 05-13-2024 11:32-0500 Systolic blood pressure 110 mm[Hg] Domingo Fong DO Work Phone: [facility] 04-01-2024 11:06-0500 Body mass index (BMI) [Ratio] 24.7 kg/m2 Dr. Domingo Fong DO Work Phone: [facility] 04-01-2024 11:06-0500 Body weight 63.[address] Domingo Fong DO Work Phone: [facility] [facility] 04-01-2024 11:06-0500 Diastolic blood pressure 72 mm[Hg] Dr. Domingo Fong DO Work Phone: [facility] 04-01-2024 11:06-0500 Heart rate 77 /min Dr. Domingo Fong DO Work Phone: [facility] 04-01-2024 11:06-0500 SaO2% (BldA) [Mass fraction] 96 % Dr. Domingo Fong DO Work Phone: [facility] 04-01-2024 11:06-0500 Systolic blood pressure 144 mm[Hg] Dr. Domingo Fong DO Work Phone: [facility] 01-08-2024 11:00-0400 Body height 162.6 cm Domingo Fong DO Work Phone: [facility] 01-08-2024 11:00-0400 Body mass index (BMI) [Ratio] 25.16 kg/m2 Domingo Fong DO Work Phone: [facility] 01-08-2024 11:00-0400 Body temperature 97.7 [degF] Domingo Fong DO Work Phone: [facility] 01-08-2024 11:00-0400 Body weight 66.5 kg Domingo Fong DO Work Phone: [facility] 01-08-2024 11:00-0400 Diastolic blood pressure 60 mm[Hg] Domingo Fong DO Work Phone: [facility] 01-08-2024 11:00-0400 Heart rate 94 /min Domingo Joela DO Work Phone: [facility] 01-08-2024 11:00-0400 SaO2% (BldA) [Mass fraction] 97 % Domingo Joela DO Work Phone: [facility] 01-08-2024 11:00-0400 Systolic blood pressure 110 mm[Hg] Domingo Fong DO Work Phone: [facility] 06-12-2023 14:12-0400 Diastolic blood pressure 78 mm[Hg] Domingo Fong DO Work Phone: [facility] 06-12-2023 14:12-0400 Heart rate 68 /min Domingo Fong DO Work Phone: [facility] 06-12-2023 14:12-0400 Systolic blood pressure 126 mm[Hg] Domingo Fong DO Work Phone: [facility] 06-12-2023 13:09-0400 Body height 162.6 cm Domingo Fong DO Work Phone: [facility] 06-12-2023 13:09-0400 Body mass index (BMI) [Ratio] 24.55 kg/m2 Domingo Fong DO Work Phone: [facility] 06-12-2023 13:09-0400 Body temperature 97 [degF] Domingo Fong DO Work Phone: [facility] 06-12-2023 13:09-0400 Body weight 64.86 kg Domingo Fong DO Work Phone: [facility] 06-12-2023 13:09-0400 SaO2% (BldA) [Mass fraction] 97 % Domingo Fong DO Work Phone: [facility] 11-14-2022 11:45-0400 Body height 161.3 cm Domingo Joela DO Work Phone: [facility] 11-14-2022 11:45-0400 Body mass index (BMI) [Ratio] 24.93 kg/m2 Domingo Fong DO Work Phone: [facility] 11-14-2022 11:45-0400 Body temperature 97.3 [degF] Domingo Fong DO Work Phone: [facility] 11-14-2022 11:45-0400 Body weight 64.86 kg Domingo Fong DO Work Phone: [facility] 11-14-2022 11:45-0400 Diastolic blood pressure 67 mm[Hg] Domingo Fong DO Work Phone: [facility] 11-14-2022 11:45-0400 Heart rate 79 /min Domingo Fong DO Work Phone: [facility] 11-14-2022 11:45-0400 SaO2% (BldA) [Mass fraction] 98 % Domingo Fong DO Work Phone: [facility] 11-14-2022 11:45-0400 Systolic blood pressure 136 mm[Hg] Domingo Fong DO Work Phone: [facility] 10-03-2022 12:59-0400 Body height 161.3 cm Domingo Fong DO Work Phone: [facility] 10-03-2022 12:59-0400 Body mass index (BMI) [Ratio] 24.9 kg/m2 Domingo Fong DO Work Phone: [facility] 10-03-2022 12:59-0400 Body temperature 97.3 [degF] Domingo Fong DO Work Phone: [facility] 10-03-2022 12:59-0400 Body weight 64.77 kg Domingo Fong DO Work Phone: [facility] 10-03-2022 12:59-0400 Diastolic blood pressure 67 mm[Hg] Domingo Joela DO Work Phone: [facility] 10-03-2022 12:59-0400 Heart rate 68 /min Domingo Fong DO Work Phone: [facility] 10-03-2022 12:59-0400 SaO2% (BldA) [Mass fraction] 97 % Domingo Fong DO Work Phone: [facility] 10-03-2022 12:59-0400 Systolic blood pressure 130 mm[Hg] Domingo Fong DO Work Phone: [facility] 04-25-2022 14:10-0500 Body height 161.3 cm Domingo Fong DO Work Phone: [facility] 04-25-2022 14:10-0500 Body mass index (BMI) [Ratio] 25.63 kg/m2 Domingo Fong DO Work Phone: [facility] 04-25-2022 14:10-0500 Body temperature 97.3 [degF] Domingo Fong DO Work Phone: [facility] 04-25-2022 14:10-0500 Body weight 66.68 kg Domingo Fong DO Work Phone: [facility] 04-25-2022 14:10-0500 Diastolic blood pressure 65 mm[Hg] Domingo Fong DO Work Phone: [facility] 04-25-2022 14:10-0500 Heart rate 82 /min Domingo Fong DO Work Phone: [facility] 04-25-2022 14:10-0500 SaO2% (BldA) [Mass fraction] 98 % Domingo Fong DO Work Phone: [facility] 04-25-2022 14:10-0500 Systolic blood pressure 121 mm[Hg] Domingo Fong DO Work Phone: [facility] Encounters Encounter Date Encounter Type Care Provider Facility Start: 03-17-2025 ambulatory Alphonse Peres Facility :[facility] Start: 01-27-2025 End: 01-27-2025 ambulatory Alphonse Peres Facility:[facility] Start: 01-15-2025 End: 01-15-2025 Telephone encounter Domingo Fong DO Work Phone: [facility] Comment on above: Referral Start: 09-23-2024 End: 09-24-2024 Telephone encounter Domingo Fong DO Work Phone: [facility] Comment on above: Other Start: 09-22-2024 End: 09-23-2024 Follow-up encounter Domingo Fong DO Work Phone: [facility] Comment on above: CBC auto differentia l, Comprehensive metabolic panel, Lipid panel, Hemoglobin A1c Start: 09-16-2024 End: 09-16-2024 Assay of hemosiderin, quant Domingo Fong DO Work Phone: [facility] Start: 09-16-2024 End: 09-16-2024 Patient encounter procedure Domingo Fong DO Work Phone: [facility] Comment on above: Encounter for subseq uent annual wellness visit (AWV) in Medicare patient (Primary Dx); Type 2 diabetes mellitus without complication, with long-term current use of insulin (HCC); Mixed hypercholesterolemia and hypertriglyceridemia; Osteopenia, unspecified location; NSAID long-term use; Breast cancer screening by mammogram; Essential hypertension; Routine general medical examination at health care facility Start: 09-16-2024 End: 09-16-2024 ambulatory [facility] Start: 09-16-2024 End: 09-16-2024 Encounter for general adult medical examination without abnormal findings [facility] Start: 08-30-2024 End: 09-02-2024 Refill Domingo Fong DO Work Phone: [facility] Start: 08-26-2024 End: 08-26-2024 Refill Domingo Fong DO Work Phone: [facility] Start: 08-12-2024 End: 08-13-2024 Telephone encounter Domingo Fong DO Work Phone: [facility] Comment on above: Orders Start: 07-12-2024 End: 07-18-2024 Telephone encounter oDmingo Denny Marycruzmaik DO Work Phone: [facility] Comment on above: Other (Central Sched uling) Start: 07-09-2024 End: 07-09-2024 Refill Domingo Denny Marycruzmaik DO Work Phone: [facility] Start: 06-17-2024 ambulatory Domingo Fong Facilit y:[facility] Start: 06-06-2024 End: 06-06-[address] Domingo Fong DO Work Phone: [facility] Work Phone: Start: 06-06-2024 End: 06-06-2024 Patient encounter procedure Natacha Mix FILTERING MACHINE TENDER-C -Outpatient Bone Densitometry Work Phone: Start: 06-06-2024 End: 06-06-2024 ambulatory Natacha Mix Facility:[facility] Start: 05-27-2024 End: 05-27-2024 Patient encounter procedure Natacha Mix FILTERING MACHINE TENDER-C -[facility] Work Phone: Start: 05-27-2024 End: 05-27-2024 ambulatory Domingo Fong Facility:[facility] Start: 05-20-2024 End: 05-20-2024 Patient encounter procedure Natacha Mix FILTERING MACHINE TENDER-C -Laboratory Work Phone: Start: 05-20-2024 End: 05-20-2024 ambulatory Natacha Mix Facility:[facility] Start: 05-17-2024 End: 05-20-2024 Refill Dominog Denisha Marycruzmaik DO Work Phone: [facility] Start: 05-16-2024 End: 05-16-2024 Telephone encounter Domingo Denisha Marycruzmaik DO Work Phone: [facility] Comment on above: Other (Glucometer re quest) Start: 05-13-2024 End: 05-13-2024 Telephone encounter Domingo Fong DO Work Phone: [facility] Comment on above: Referral (Cardiolyte Stress / Podiatry) Start: 05-13-2024 End: 05-13-2024 Office outpatient visit 25 minutes Domingo Fong DO Work Phone: [facility] Comment on above: Other chest pain (Pr imary Dx); Mixed hypercholesterolemia and hypertriglyceridemia; Diabetic retinopathy associated with type 2 diabetes mellitus, macular edema presence unspecified, unspecified laterality, unspecified retinopathy severity (HCC); Breast cancer screening by mammogram; Essential hypertension; Hypertrophic toenail Start: 05-13-2024 End: 05-13-20[facility] Start: 04-01-2024 End: 04-01-2024 Patient encounter procedure Natacha Mix FILTERING MACHINE TENDER-C -[facility] Work Phone: Start: 04-01-2024 End: 04-01-2024 ambulatory Natacha Mix Facility:[facility] Start: 03-14-2024 End: 03-14-2024 Refill Domingo Fong DO Work Phone: [facility] Start: 02-26-2024 End: 04-17-2024 Telephone encounter Domingo Fong DO Work Phone: [facility] Comment on above: Labs Only Start: 01-30-2024 End: 01-30-2024 Orders Only Domingo Fong DO Work Phone: [facility] Start: 01-08-2024 End: 01-08-2024 Telephone encounter Domingo Fong DO Work Phone: [facility] Comment on above: Referral (Dr Pedro mota / Dr Hercules) Start: 01-08-2024 End: 01-08-2024 Office outpatient visit 25 minutes Domingo Fong DO Work Phone: [facility] Comment on above: Type 2 diabetes brady itus without complication, with long-term current use of insulin ([facility]) ([facility]) (Primary Dx); Essential hypertension; Mixed hypercholesterolemia and hypertriglyceridemia; Diabetic retinopathy associated with type 2 diabetes mellitus, macular edema presence unspecified, unspecified laterality, unspecified retinopathy severity ([facility]); Encounter for monitoring NSAID therapy; Dysphagia, unspecified type Start: 01-03-2024 End: 01-03-2024 Orders Only Domingo Fong DO Work Phone: [facility] Start: 01-02-2024 End: 01-02-2024 Orders Only Domingo Fong DO Work Phone: [facility] Start: 12-31-2023 End: 12-31-2023 Orders Only Domingo Fong DO Work Phone: [facility] Comment on above: Dysphagia, unspecifi ed type (Primary Dx); Type 2 diabetes mellitus without complication, with long-term current use of insulin ([facility]) ([facility]) Start: 12-18-2023 End: 01-26-2024 Refill Domingo Fong DO Work Phone: [facility] Comment on above: Lab Orders Start: 09-18-2023 End: 09-19-2023 Refill Domingo Fong DO Work Phone: [facility] Start: 08-27-2023 Refill Domingo knighta DO Work Phone: [facility] Start: 08-22-2023 Orders Only Domingo knighta DO Work Phone: [facility] Start: 08-18-2023 End: 09-25-2023 Orders Only Domingo Joela DO Work Phone: [facility] Comment on above: Medication Problem Start: 07-18-2023 Telephone encounter Domingo Denisha Willard cidrilla DO Work Phone: [facility] Start: 07-15-2023 Refill Domingo Carrero lla DO Work Phone: [facility] Start: 07-11-2023 Telephone encounter Domingo Denny Willard south DO Work Phone: [facility] Comment on above: Orders (Endo referra l ) Start: 07-03-2023 Refill Makenzie bernstein MA [facility] Start: 06-29-2023 Orders Only Domingo stephen DO Work Phone: [facility] Comment on above: Type 2 diabetes brady itus without complication, with long-term current use of insulin (CMS/HCC) ([facility]) (Primary Dx); Mixed hypercholesterolemia and hypertriglyceridemia; Essential hypertension Start: 06-12-2023 Telephone encounter Domingo Lamar fabiolaa DO Work Phone: [facility] Comment on above: Referral (Dr Abhi aguilera) Start: 06-12-2023 End: 06-12-2023 Office outpatient visit 25 minutes Domingo Fong DO Work Phone: [facility] Comment on above: Type 2 diabetes brady itus without complication, with long-term current use of insulin (CMS/HCC) ([facility]) (Primary Dx); Mixed hypercholesterolemia and hypertriglyceridemia; Essential hypertension; NSAID long-term use; Encounter for monitoring NSAID therapy; Right-sided chest pain; Dysphagia, unspecified type; Breast cancer screening by mammogram Start: 04-17-2023 Refill Domingo Denisha Magan stephen DO Work Phone: [facility] Start: 02-01-2023 ambulatory Yaritza Abel RN [facility] Start: 02-01-2023 Patient encounter procedure Yaritza jones RN [facility] Start: 12-29-2022 Refill Domingo Denisha Magan knighta DO Work Phone: [facility] Start: 12-25-2022 Refill Domingo Denny Magan stephen DO Work Phone: [facility] Start: 12-25-2022 End: 12-25-2022 Emergency department patient visit DOMINGO FONG Facility:[facility] Start: 12-19-2022 Refill Domingo Denisha Magan knighta DO Work Phone: [facility] Start: 12-06-2022 Telephone encounter Domingo Lamar etrilla DO Work Phone: [facility] Comment on above: Orders Start: 12-03-2022 Refill Domingo Carrero antoniaa DO Work Phone: [facility] Start: 11-30-2022 Telephone encounter Domingo Lamar etrilla DO Work Phone: [facility] Comment on above: Request For Order(s) Start: 11-29-2022 Telephone encounter Domingo Lamar etrilla DO Work Phone: [facility] Comment on above: Referral ([facility]) Start: 11-14-2022 Telephone encounter Domingo Lamar etrilla DO Work Phone: [facility] Comment on above: Orders (Cardiac stre ss test and [facility]) Start: 11-14-2022 End: 11-14-2022 Office outpatient visit 25 minutes Domingo Denisha Marycruza DO Work Phone: [facility] Comment on above: Type 2 diabetes brady itus without complication, with long-term current use of insulin (CMS/HCC) ([facility]) (Primary Dx); Mixed hypercholesterolemia and hypertriglyceridemia; Essential hypertension; NSAID long-term use; Chest pain, unspecified type; Chronic cough Start: 10-03-2022 ambulatory Lindsey Garza RN [facility] Start: 10-03-2022 Patient encounter procedure [facility] Start: 10-03-2022 End: 10-03-2022 Office outpatient visit 15 minutes Domingo Denisha Hetal DO Work Phone: [facility] Comment on above: Acute recurrent fron shauna sinusitis (Primary Dx); Type 2 diabetes mellitus without complication, with long-term current use of insulin (CMS/HCC) (HCC) Start: 09-12-2022 Refill Domingo stephen DO Work Phone: [facility] Start: 06-29-2022 Refill Domingo stephen DO Work Phone: [facility] Start: 05-23-2022 End: 05-24-2022 ambulatory CAREY GUTIERRES Facility:[facility] Start: 04-25-2022 End: 04-25-2022 Office outpatient visit 25 minutes Domingo Carrerozafar DO Work Phone: [facility] Comment on above: Type 2 diabetes brady itus without complication, with long-term current use of insulin (CMS/HCC) (HCC) (Primary Dx); Mixed hypercholesterolemia and hypertriglyceridemia; Essential hypertension; Colon cancer screening; ANIBAL (generalized anxiety disorder); NSAID long-term use Start: 04-25-2022 Telephone encounter Domingo Denny Willard south DO Work Phone: [facility] Comment on above: Referral (General) Start: 02-15-2022 Transcribe Orders Domingo perez DO Work Phone: [facility] Comment on above: Encounter for screen ing mammogram for malignant neoplasm of breast (Primary Dx) Start: 01-23-2017 Ambulatory Domingo [facility] Procedures Date Procedure Procedure Detail Performing Clinician Start: 09-16-2024 Lipid 1996 panel - S justin or Plasma Domingo Fong DO Work Phone: Start: 06-06-2024 Dual energy X-ray absorptiometry Dr. Domingo Fong DO Work Phone: Start: 05-13-2024 Ecg routine ecg w/le ast 12 lds w/i&r Domingo Fong DO Work Phone: Start: 12-25-2023 Lipid 1996 panel - S justin or Plasma Domingo Fong DO Work Phone: Start: 07-03-2023 Lipid 1996 panel - S justin or Plasma Domingo Fong DO Work Phone: Start: 01-10-2023 Colonoscopy Yaritza monsalve RN Start: 11-14-2022 Ecg routine ecg w/le ast 12 lds w/i&r Domingo Fong DO Work Phone: Start: 02-28-2022 Mammography Domingo Tierney duanefaby DO Work Phone: Start: 09-06-2021 Lipid 1996 panel - S justin or Plasma Domingo Hetal DO Work Phone: Start: 05-30-2011 Colonoscopy Lindsey acosta RN Plan of Treatment Date Care Activity Detail Author Start: 01-10-2033 Screening for malignant neoplasm of colon [facility] Start: 12-25-2032 DTaP/Tdap/Td Vaccines (2 - Td or Tdap) DTaP/Tdap/Td Vaccines (2 - Td or Tdap) [facility] Start: 12-25-2032 DTaP/Tdap/Td Vaccines (3 - Td or Tdap) DTaP/Tdap/Td Vaccines (3 - Td or Tdap) [facility] Start: 11-04-2025 Glaucoma screening Diabetes: Retinopathy Screening [facility] Start: 10-16-2025 Medicare Annual Wellness (AWV) Medicare Annual Wellness (AWV) [facility] Start: 09-16-2025 Diabetes: Estimated Glomerular Filtration Rate for [facility] Diabetes: Estimated Glomerular Filtration Rate for [facility] Start: 09-16-2025 Hemoglobin A1c measurement Diabetes: Hemoglobin A1C [facility] Start: 09-16-2025 Lipid panel Lipid Panel [facility] Start: 03-18-2025 Depression Monitoring Depression Monitoring [facility] Start: 03-10-2025 End: 03-10-2025 Patient encounter procedure 03/10/2025 11:20 AM EST Office Visit [facility] [address] [place] [address] Domingo Fong, [address] [place] [place] [address] [facility] Start: 03-03-2025 End: 03-03-2025 Patient encounter procedure 03/03/2025 9:[address] [facility] [address] [place] [address] Domingo Fong, DO [address] [place] [address] [facility] Start: 01-07-2025 Diabetic foot examination Diabetes: Foot Exam [facility] Start: 01-07-2025 Glaucoma screening Diabetes: Retinopathy Screening [facility] Start: 12-31-2024 Hemoglobin A1c measurement Diabetes: Hemoglobin A1C [facility] Start: 12-24-2024 Diabetes: Estimated Glomerular Filtration Rate for [facility] Diabetes: Estimated Glomerular Filtration Rate for [facility] Start: 12-24-2024 Lipid panel Lipid Panel [facility] Start: 11-25-2024 COVID-19 Vaccine ( season) COVID-19 Vaccine () [facility] Start: 11-25-2024 Influenza vaccination [facility] Start: 09-16-2024 End: 09-16-2025 CBC W Auto Differential panel - Blood CBC auto differential Lab Routine Type 2 diabetes mellitus without complication, with long-term current use of insulin (HCC) Expected: 09/16/2024 (Approximate), Expires: 09/16/2025 [facility] Work Phone: Comment on above: Expected: 09/16/2024 (Approximate), Expi res: 09/16/2025 Start: 09-16-2024 End: 09-16-2025 Comprehensive metabolic 1998 panel - Serum or Plasma Comprehensive metabolic panel Lab Routine Type 2 diabetes mellitus without complication, with long-term current use of insulin (HCC) Expected: 09/16/2024 (Approximate), Expires: 09/16/2025 [facility] Comment on above: Expected: 09/16/2024 (Approximate), Expi res: 09/16/2025 Start: 09-16-2024 End: 09-16-2025 Hemoglobin A1c measurement Hemoglobin A1c Lab Routine Type 2 diabetes mellitus without complication, with long-term current use of insulin (HCC) Expected: 09/16/2024 (Approximate), Expires: 09/16/2025 [facility] Comment on above: Expected: 09/16/2024 (Approximate), Expi res: 09/16/2025 Start: 09-16-2024 End: 09-16-2025 Lipid 1996 panel - Serum or Plasma Lipid panel Lab Routine Type 2 diabetes mellitus without complication, with long-term current use of insulin (HCC) Expected: 09/16/2024 (Approximate), Expires: 09/16/2025 [facility] Comment on above: Expected: 09/16/2024 (Approximate), Expi res: 09/16/2025 Start: 09-16-2024 End: 09-16-2024 Patient encounter procedure [facility] Start: 07-02-2024 Diabetes: Estimated Glomerular Filtration Rate for [facility]ney [facility] Diabetes: Estimated Glomerular Filtration Rate for [facility] Start: 07-02-2024 Hemoglobin A1c measurement Diabetes: Hemoglobin A1C [facility] Start: 07-02-2024 Lipid panel Lipid Panel [facility] Start: 06-18-2024 Glaucoma screening Diabetes: Retinopathy Screening [facility] Start: 05-13-2024 End: 07-11-2025 DBT Breast - bilateral screening Bilateral screening mammogram with tomosynthesis Imaging Routine Breast cancer screening by mammogram Expected: 05/13/2024, Expires: 07/11/2025 [facility] Work Phone: Comment on above: Expected: 05/13/2024, Expires: Start: 05-13-2024 End: 05-13-2024 Patient encounter procedure 05/13/2024 11:30 AM EST [facility] [address] [place] [address] Domingo Fong DO [address] [place] [address] [facility] Start: 01-08-2024 End: 01-08-2024 Patient encounter procedure [facility] Start: 12-31-2023 End: 12-30-2024 Hemoglobin A1c measurement Hemoglobin A1c Lab Routine Type 2 diabetes mellitus without complication, with long-term current use of insulin ([facility]/HCC) (HCC) Expected: 12/31/2023 (Approximate), Expires: 12/30/2024 [facility] Work Phone: Comment on above: Expected: 12/31/2023 (Approximate), Expi res: 12/30/2024 Start: 12-23-2023 Pneumococcal Vaccine: 65+ Years (3 of 3 - PPSV23 or PCV20) Pneumococcal Vaccine: 65+ Years (3 of 3 - PPSV23 or PCV20) [facility] Start: 12-23-2023 Pneumococcal Vaccine: Pediatrics (0 to 5 Years) and At-Risk Patients (6 to 64 Years) (3 - PPSV23 if available, else PCV20) Pneumococcal Vaccine: Pediatrics (0 to 5 Years) and At-Risk Patients (6 to 64 Years) (3 - PPSV23 if available, else PCV20) [facility] Start: 12-23-2023 Pneumococcal Vaccine: Pediatrics (0 to 5 Years) and At-Risk Patients (6 to 64 Years) (3 - PPSV23 or PCV20) Pneumococcal Vaccine: Pediatrics (0 to 5 Years) and At-Risk Patients (6 to 64 Years) (3 - PPSV23 or PCV20) [facility] Start: 12-23-2023 Pneumococcal Vaccine: Pediatrics (0 to 5 Years) and At-Risk Patients (6 to 64 Years) (3 of 3 - PPSV23 or PCV20) Pneumococcal Vaccine: Pediatrics (0 to 5 Years) and At-Risk Patients (6 to 64 Years) (3 of 3 - PPSV23 or PCV20) [facility] Start: 12-18-2023 End: 12-18-2023 Patient encounter procedure 12/18/2023 1:00 PM EDT Office Visit [facility] [address] [place] [address] Domingo Fong DO [address] [place] [address] [facility] Start: 11-26-2023 COVID-19 Vaccine () COVID-19 Vaccine () [facility] Start: 11-26-2023 COVID-19 Vaccine ( season) COVID-19 Vaccine () [facility] Start: 11-26-2023 Influenza vaccination [facility] Start: 11-24-2023 Glaucoma screening Diabetes: Retinopathy Screening [facility] Start: 06-29-2023 End: 06-28-2024 CBC W Auto Differential panel - Blood CBC auto differential Lab Routine Type 2 diabetes mellitus without complication, with long-term current use of insulin (CMS/HCC) (HCC) Expected: 06/29/2023 (Approximate), Expires: 06/28/2024 [facility] Work Phone: Comment on above: Expected: 06/29/2023 (Approximate), Expi res: 06/28/2024 Start: 06-29-2023 End: 06-28-2024 Cobalamin (Vitamin B12) [Mass/volume] in Serum or Plasma Vitamin B12 Lab Routine Type 2 diabetes mellitus without complication, with long-term current use of insulin (CMS/HCC) (HCC) Expected: 06/29/2023 (Approximate), Expires: 06/28/2024 [facility] Comment on above: Expected: 06/29/2023 (Approximate), Expi res: 06/28/2024 Start: 06-29-2023 End: 06-28-2024 Comprehensive metabolic 1998 panel - Serum or Plasma Comprehensive metabolic panel Lab Routine Type 2 diabetes mellitus without complication, with long-term current use of insulin (CMS/HCC) (HCC) Expected: 06/29/2023 (Approximate), Expires: 06/28/2024 [facility] Comment on above: Expected: 06/29/2023 (Approximate), Expi res: 06/28/2024 Start: 06-29-2023 End: 06-28-2024 Hemoglobin A1c measurement Hemoglobin A1c Lab Routine Type 2 diabetes mellitus without complication, with long-term current use of insulin (CMS/HCC) (HCC) Expected: 06/29/2023 (Approximate), Expires: 06/28/2024 [facility] Comment on above: Expected: 06/29/2023 (Approximate), Expi res: 06/28/2024 Start: 06-29-2023 End: 06-28-2024 Lipid 1996 panel - Serum or Plasma Lipid panel Lab Routine Type 2 diabetes mellitus without complication, with long-term current use of insulin (CMS/HCC) (HCC) Expected: 06/29/2023 (Approximate), Expires: 06/28/2024 [facility] Comment on above: Expected: 06/29/2023 (Approximate), Expi res: 06/28/2024 Start: 06-29-2023 End: 06-28-2024 Thyrotropin [Units/volume] in Serum or Plasma TSH Lab Routine Type 2 diabetes mellitus without complication, with long-term current use of insulin (CMS/HCC) (HCC) Expected: 06/29/2023 (Approximate), Expires: 06/28/2024 [facility] Comment on above: Expected: 06/29/2023 (Approximate), Expi res: 06/28/2024 Start: 06-12-2023 End: 06-11-2024 CBC W Auto Differential panel - Blood CBC auto differential Lab Routine Type 2 diabetes mellitus without complication, with long-term current use of insulin (CMS/HCC) (HCC) Expected: 06/12/2023 (Approximate), Expires: 06/11/2024 [facility] Work Phone: Comment on above: Expected: 06/12/2023 (Approximate), Expi res: 06/11/2024 Start: 06-12-2023 End: 06-11-2024 Cobalamin (Vitamin B12) [Mass/volume] in Serum or Plasma Vitamin B12 Lab Routine Type 2 diabetes mellitus without complication, with long-term current use of insulin (CMS/HCC) (HCC) Expected: 06/12/2023 (Approximate), Expires: 06/11/2024 [facility] Comment on above: Expected: 06/12/2023 (Approximate), Expi res: 06/11/2024 Start: 06-12-2023 End: 06-11-2024 Comprehensive metabolic 1998 panel - Serum or Plasma Comprehensive metabolic panel Lab Routine Type 2 diabetes mellitus without complication, with long-term current use of insulin (CMS/HCC) (HCC) Expected: 06/12/2023 (Approximate), Expires: 06/11/2024 [facility] Comment on above: Expected: 06/12/2023 (Approximate), Expi res: 06/11/2024 Start: 06-12-2023 End: 08-11-2024 DBT Breast - bilateral screening Bilateral screening mammogram with tomosynthesis Imaging Routine Breast cancer screening by mammogram Expected: 06/12/2023, Expires: 08/11/2024 [facility] Comment on above: Expected: 06/12/2023, Expires: Start: 06-12-2023 End: 06-11-2024 Lipid 1996 panel - Serum or Plasma Lipid panel Lab Routine Mixed hypercholesterolemia and hypertriglyceridemia Encounter for monitoring NSAID therapy Expected: 06/12/2023 (Approximate), Expires: 06/11/2024 [facility] Comment on above: Expected: 06/12/2023 (Approximate), Expi res: 06/11/2024 Start: 06-12-2023 End: 06-11-2024 Thyrotropin [Units/volume] in Serum or Plasma TSH Lab Routine Mixed hypercholesterolemia and hypertriglyceridemia Expected: 06/12/2023 (Approximate), Expires: 06/11/2024 [facility] Comment on above: Expected: 06/12/2023 (Approximate), Expi res: 06/11/2024 Start: 06-12-2023 End: 06-11-2024 XR Chest 2 Views XR chest 2 views Imaging Routine Type 2 diabetes mellitus without complication, with long-term current use of insulin ([facility]/HCC) (HCC) Right-sided chest pain Expected: 06/12/2023, Expires: 06/11/2024 [facility] Comment on above: Expected: 06/12/2023, Expires: Start: 05-15-2023 End: 05-15-2023 Patient encounter procedure [facility] Start: 04-25-2023 Diabetic foot examination Diabetes: Foot Exam [facility] Start: 02-28-2023 Screening for malignant neoplasm of breast Mammogram [facility] Start: 11-25-2022 COVID-19 Vaccine () COVID-19 Vaccine () [facility] Start: 11-25-2022 Influenza vaccination [facility] Start: 11-15-2022 Hemoglobin A1c measurement Diabetes: Hemoglobin A1C [facility] Start: 11-14-2022 End: 11-15-2023 XR Chest 2 Views XR chest 2 views Imaging Routine Chronic cough Expected: 11/14/2022, Expires: 11/15/2023 [facility] Work Phone: Comment on above: Expected: 11/14/2022, Expires: Start: 11-14-2022 End: 11-14-2022 Patient encounter procedure 11/14/2022 11:30 AM EDT Office Visit [facility] [address] [place] [address] Domingo Fong, DO [address] [place] [address] [facility] Start: 10-31-2022 End: 10-31-2022 Patient encounter procedure [facility] Start: 09-19-2022 End: 09-19-2022 Patient encounter procedure 09/19/2022 2:00 PM EDT Office Visit [facility] [address] [place] [address] Domingo Fong, [address], [place] [id number] [facility] Start: 09-06-2022 Diabetes: Urine Albumin-Creatinine Ratio for Kidney Health Diabetes: Urine Albumin-Creatinine Ratio for Kidney Health [facility] Start: 09-06-2022 Lipid panel Lipid Panel [facility] Start: 09-06-2022 Urine screening for protein Diabetes: Urine Protein Screening [facility] Start: 02-15-2022 Hemoglobin A1c measurement Diabetes: Hemoglobin A1C [facility] Start: 11-25-2021 Influenza vaccination Influenza Vaccine (#1) [facility] Start: 07-04-2021 Pneumococcal Vaccine: 50+ Years (3 of 3 - PCV20 or PCV21) Pneumococcal Vaccine: 50+ Years (3 of 3 - PCV20 or PCV21) [facility] Start: 06-01-2021 COVID-19 Vaccine (4 - Booster for Moderna series) COVID-19 Vaccine (4 - Booster for Moderna series) [facility] Start: 06-01-2021 COVID-19 Vaccine (4 - Moderna series) COVID-19 Vaccine (4 - Moderna series) [facility] Start: 06-01-2021 COVID-19 Vaccine (5 - Moderna series) COVID-19 Vaccine (5 - Moderna series) [facility] Start: 05-29-2021 Screening for malignant neoplasm of colon [facility] Start: 2018 Hepatitis B Vaccines (1 of 3 - Risk 3-dose series) Hepatitis B Vaccines (1 of 3 - Risk 3-dose series) [facility] Start: 2018 RSV Immunization aged 60 or older (1 - 1-dose 60+ series) RSV Immunization aged 60 or older (1 - 1-dose 60+ series) [facility] Start: 2018 RSV Immunization for Adults (1 - Risk 60-74 years 1-dose series) RSV Immunization for Adults (1 - Risk 60-74 years 1-dose series) [facility] Start: 1988 Screening for malignant neoplasm of cervix [facility] Start: 12-23-1979 Screening for malignant neoplasm of cervix Pap Smear [facility] Start: 1977 DTaP/Tdap/Td Vaccines (1 - Tdap) DTaP/Tdap/Td Vaccines (1 - Tdap) [facility] Start: 1976 Hepatitis C screening Hepatitis C Screening [facility] Start: 1970 Depression Monitoring Depression Monitoring [facility] Start: 1970 Depression Screening Depression Screening [facility] Start: 1968 Glaucoma screening Diabetes: Retinopathy Screening [facility] Start: 1968 Preventive dental service Diabetes: Dental Exam [facility] Start: 12-23-1959 MMR Vaccines (1 of 1 - Standard series) MMR Vaccines (1 of 1 - Standard series) [facility] Start: 1958 Annual wellness visit Medicare Initial Physical (IPPE) [facility] Start: 1958 Hepatitis B Vaccines (1 of 3 - 3-dose series) Hepatitis B Vaccines (1 of 3 - 3-dose series) [facility] Start: 1958 HIV screening HIV Screening [facility] Start: 1960 Medicare Annual Wellness (AWV) Medicare Annual Wellness (AWV) [facility] Start: 1958 Screening for malignant neoplasm of colon [facility] Start: 1958 Screening for osteoporosis Bone Density Scan [facility] Hemoglobin A1c/Hemoglobin.total in Blood AMB POC HEMOGLOBIN A1C Point of Care Testing Routine Type 2 diabetes mellitus without complication, with long-term current use of insulin (CMS/HCC) (HCC) Ordered: 01/01/2024 [facility] Comment on above: Ordered: 01/01/2024 Immunizations Immunization Date Immunization Notes Care Provider Antonette galvan 09-16-2024 Pneumococcal Conjuga te PCV20, Pf (Prevnar 20) Domingo Fong DO Work Phone: [facility] 12-25-2022 tetanus toxoid, redu bill diphtheria toxoid, and acellular pertussis vaccine, adsorbed Domingo Fong DO Work Phone: [facility] 12-27-2021 influenza virus vacc ine, unspecified formulation Domingo Fong DO Work Phone: [facility] 01-18-2021 influenza virus vacc ine, unspecified formulation Domingo Fong DO Work Phone: [facility] 03-04-2019 zoster vaccine recombinant E ugjohn Carrerolla DO Work Phone: [facility] 01-21-2019 influenza virus vacc ine, unspecified formulation Domingo Carrerollmaik DO Work Phone: [facility] 01-15-2019 influenza, injectabl e, quadrivalent, contains preservative Domingo Fong DO Work Phone: [facility] 12-03-2018 zoster vaccine recombinant E ugjohn Carrerolla DO Work Phone: [facility] 07-04-2016 pneumococcal conjuga te vaccine, 13 valent Domingo Joela DO Work Phone: [facility] 02-01-2009 pneumococcal polysac charide vaccine, 23 valent Domingo Fong DO Work Phone: [facility] 02-01-2005 tetanus toxoid, adsorbed Lindsey Garza RN [facility] 02-01-2005 tetanus toxoid, unsp ecified formulation Domingo Fong DO Work Phone: [facility] Payers Date Payer Category Payer Self-pay 2024 Medicare [id number] 2023 Medicare [id number] 2023 Medicare supplementa l policy (as second payer) AAR [id number] 2023 Medicare [id number] 2023 Unknown [id number] 2020 Commercial Managed C are - O N [facility] [id number] 2020 Unknown [id number] 2016 Unknown 2016 Unknown [id number] 2016 care--Care provided to [facility] [id number] Unknown VERONIKA [id number] Unknown [id number] Unknown [id number] Unknown [id number] Unknown [id number] Unknown [id number] Unknown [id number] Unknown [id number] Social History Date Type Detail Facility Start: 01-04-2023 Tobacco smoking stat [facility] Never smoked tobacco [facility] Start: 04-25-2022 End: 09-16-2024 Alcohol intake Current non-drinker of alcohol (finding) [facility] Start: 04-25-2022 End: 09-16-2024 Alcohol intake [facility] Start: 1960 Sex Assigned At Not on file [facility] Start: 04-25-2022 End: 09-16-2024 Tobacco use panel [facility] Start: 04-15-2022 End: 11-14-2022 Exposure to SARS-CoV-2 (event) Not sure [facility] Start: 10-25-2021 End: 06-15-2024 Sex Female (finding) [facility] Start: 1960 Sex Assigned At Female [facility] How often to you hav e a drink containing alcohol? Never [facility] Average Number of Drinks Not on file [facility] Medical Equipment Procedure Code Equipment Code Equipment Origin al Text Equipment Identifier Dates [id number] Start: 01-18-2022 End: 05-13-2024 1 EACH BY IN VIT RO ROUTE DAILY NEEDED. E11.9 [id number] Start: 04-17-2023 End: 05-13-2024 TEST BLOOD SUGAR DAILY DIRECTED [id number] Start: 11-15-2022 USE TO INJECT INSULIN DAILY [id number] Start: 11-15-2022 Use as instructed [id number] Start: 05-13-2024 1 EACH BY IN VIT RO ROUTE DAILY NEEDED. E11.9 [id number] Start: 05-13-2024 Blood Sugar Diagnostic (Accu-Chek Guide Test Strips) strip Start: 04-01-2024 Lancets (Accu-Ch ek Softclix Lancets) misc Start: 12-26-2022 Pen Needle, Diab etic (Bd Ultra-Fine Mini Pen Needle) 31 gauge x 3/16 needle Start: 12-26-2022 Functional Status Date Assessment Result Facility 09-16-2024 Alcohol Use Disorder Identification Test [AUDIT] [facility] 09-16-2024 Patient Health Questionnaire 2 item (PHQ- 2) [Reported] [facility] Notes 04-25-2022 to 01-16-2025 Telephone Encounter - Trisha Pierre - 01/16/2025 8:31 AM EDTTelephone Encounter - Trisha Pierre - 01/16/2025 8:31 AM EDTTelephone Encounter - Ashley De La Rosa - 01/16/2025 7:17 AM EDTPatient Instructions Note Date & Type Note Facility 01-16-2025 Note Referral and records faxed and letter mailed to patient [facility] 01-16-2025 Telephone encounter Note Referral and records faxed and letter mailed to patient [facility] 01-16-2025 Miscellaneous Notes Referral and records faxed and letter mailed to patient Will forward to Trisha to follow up Original referral sent in 08/18 and follow up letter to pt mailed in 11/18 Name of caller: Adriane Contact phone number: [phone] Relationship to Patient: patient Provider: Hetal Practice: [facility]yd[facility] Sheldon [facility] Chief Complaint/Reason for Call: 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 She would like the referral sent to [facility]. Please help with referral and advise patient. Best time of day caller can be reached: any Patient advised that office/PCP has 24-48 business hours to return their call: Yes documented in this encounter [facility] 01-16-2025 Note Will forward to Trisha to follow up Original referral sent in 08/18 and follow up letter to pt mailed in 11/18 [facility] 01-16-2025 Telephone encounter Note Will forward to Trisha to follow up Original referral sent in 08/18 and follow up letter to pt mailed in 11/18 [facility] 01-15-2025 Telephone encounter Note Name of caller: Adriane Contact phone number: [phone] Relationship to Patient: patient Provider: Hetal Practice: [facility] Chief Complaint/Reason for Call: 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 She would like the referral sent to [facility]. Please help with referral and advise patient. 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 She would like the referral sent to [facility]. Please help with referral and advise patient. Best time of day caller can be reached: any Patient advised that office/PCP has 24-48 business hours to return their call: Yes documented in this encounter [facility] 09-23-2024 Telephone encounter Note Order faxed to [facility] per patient request [facility] 09-23-2024 Miscellaneous Notes Order faxed to [facility] per patient request Name of caller: Adriane Contact phone number: [phone] Relationship to Patient: patient Provider: Dr Fong Practice: [facility] Chief Complaint/Reason for Call: Patient is requesting that her order for mammogram be faxed over to [facility]. She is requesting a call when completed. Please advise Best time of day caller can be reached: any Patient advised that office/PCP has 24-48 business hours to return their call: Yes documented in this encounter [facility] 09-23-2024 Telephone encounter Note Name of caller: Adrinae Contact phone number: [phone] Relationship to Patient: patient Provider: Dr Fong Practice: [facility] Chief Complaint/Reason for Call: Patient is requesting that her order for mammogram be faxed over to [facility]. She is requesting a call when completed. Please advise Best time of day caller can be reached: any Patient advised that office/PCP has 24-48 business hours to return their call: Yes [facility] 09-23-2024 Telephone encounter Note Message released to patient as written. yes Patient's further questions if applicable: na Were all questions from office addressed or relayed to the patient from encounter: N/A [facility] 09-23-2024 Miscellaneous Notes Message released to patient as written. yes Patient's further questions if applicable: na Were all questions from office addressed or relayed to the patient from encounter: N/A documented in this encounter [facility] 09-16-2024 History of Present illness Narrative Images from the original note were not included. [facility] - [address] [facility] [address] Dept: [phone] Dept Chief Complaint: Adriane Herrera is an 63 y.o. female here for an annual wellness visit. Better controlled type II diabetic on insulin and Ozempic with history of hypertension, hyperlipidemia presents for wellness exam. 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 Glucose and weight better on Ozempic. Needs referral for mammogram. Also still wavering on which route to go for cardiac consultation. She might see Dr. Peres in [place] to discuss options for stress test. Assessment/Plan : Problem List Items Addressed This Visit NSAID long-term use Mixed hypercholesterolemia and hypertriglyceridemia Diabetes mellitus (HCC) Relevant Orders CBC auto differential Comprehensive metabolic panel Lipid panel Hemoglobin A1c Essential hypertension Osteopenia Other Visit Diagnoses Encounter for subsequent annual wellness visit (AWV) in Medicare patient - Primary Breast cancer screening by mammogram I have reviewed and reconciled the medication list with the patient today. Current Medications[1] Also reviewed during this visit: Med Hx Surg Hx The following health maintenance schedule was reviewed with the patient and provided in printed form in the after visit summary: Health Maintenance Topic Date Due Medicare Initial Physical (IPPE) Never done Medicare Annual Wellness (AWV) Never done Bone Density Scan Never done MMR Vaccines (1 of 1 - Standard series) Never done Diabetes: Dental Exam Never done Hepatitis C Screening Never done Cervical Cancer Screening Never done RSV Immunization for Adults (1 - Risk 60-74 years 1-dose series) Never done Pneumococcal Vaccine: 50+ Years (3 of 3 - PCV20 or PCV21) 07/04/2021 Diabetes: Urine Albumin-Creatinine Ratio for Kidney Health 09/06/2022 Mammogram 02/28/2023 COVID-19 Vaccine ( - season) 2023 Influenza Vaccine (Season Ended) 2024 Diabetes: Estimated Glomerular Filtration Rate for Kidney Health 12/24/2024 Lipid Panel 12/24/2024 Diabetes: Hemoglobin A1C 12/31/2024 Diabetes: Foot Exam 01/07/2025 Diabetes: Retinopathy Screening 01/07/2025 Depression Monitoring 03/18/2025 DTaP/Tdap/Td Vaccines (3 - Td or Tdap) 12/25/2032 Colorectal Cancer Screening 01/10/2033 Zoster Vaccines Completed RSV Immunization under 20 Months Aged Out HIB Vaccines Aged Out Hepatitis B Vaccines Aged Out IPV Vaccines Aged Out Hepatitis A Vaccines Aged Out Meningococcal Vaccine Aged Out Rotavirus Vaccines Aged Out HPV Vaccines Aged Out Meningococcal B Vaccine Aged Out List of current healthcare providers: Patient Care Team: Domingo Fong DO as PCP - General Orders Placed This Encounter Procedures Pneumococcal conjugate vaccine 20-valent IM (PREVNAR 20) CBC auto differential Standing Status: Future Number of Occurrences: 1 Expected Date: 09/16/2024 Expiration Date: 09/16/2025 Comprehensive metabolic panel Standing Status: Future Number of Occurrences: 1 Expected Date: 09/16/2024 Expiration Date: 09/16/2025 Lipid panel Standing Status: Future Number of Occurrences: 1 Expected Date: 09/16/2024 Expiration Date: 09/16/2025 Hemoglobin A1c Standing Status: Future Number of Occurrences: 1 Expected Date: 09/16/2024 Expiration Date: 09/16/2025 Review of Systems no acute symptoms. No change in vision or skin or feet. Denies exertional chest pain jaw pain or shortness of breath. She would just like to have coronary disease risk evaluated. Non-smoker. No dyspnea on exertion PND orthopnea or claudication. No heartburn. No bowel issues. No melena blood constipation diarrhea. No breast complaints but she would like a mammogram. Defers breast exam today. No change in arthralgias. Takes meloxicam on a as needed basis. No NSAID issues. Was told she had a normal bone density study but she has osteopenia on this past winter's exam. Physical Exam Very pleasant alert and engaging. No carotid bruits neck masses or thyroid lesions. Heart is regular without gallops murmurs or ectopy. Lungs are clear. Abdomen without pain hepatosplenomegaly masses or bruits. Femoral pedal pulses are excellent. No skin breakdowns. She has a callus on the ventral aspect of the left second metatarsal phalangeal joint. No worrisome features. There is no motor or sensory loss of her feet or toes. She deferred breast exam. Objective : BP 111/59 Pulse 87 Temp 36.3 C (97.3 F) (Temporal) Ht 5' 4 (1.626 m) Wt 132 lb 3.2 oz (60 kg) SpO2 96% BMI 22.69 kg/m No results found. Subjective : Health Risk Assessment: General: General In general, how would you say your health is?: Good In the past 7 days, have you experienced any of the following: New or Increased Pain, New or Increased Fatigue, Loneliness, Social Isolation, Stress or Anger?: (!) Yes Select all that apply: (!) Stress Do you get the social and emotional suppport you need?: Yes Health Habits/Nutrition: Health Habits / Nutrition On average, how many days per week do you engage in moderate to strenous exercise (like a brisk walk)?: 6 days On average, how man minutes do you engage in exercise at this level?: 60 min Have you lost any weight without trying in the past 3 months? : No Have you seen the dentist within the past year?: Yes Hearing/ Vision: Hearing / Vision Do you or your family notice any trouble with your hearing that hasn't been managed with hearing aids?: No Do you have difficulty driving, watching TV, or doing any of your daily activities because of your eyesight?: No Have you had an eye exam within the past year?: Yes No results found. Safety: Safety Do you have a working smoke detector?: Yes Do you have any tripping hazards - loose or unsecured carpets or rugs?: No Do you have any tripping hazards - clutter in doorways, halls, or stairs?: No Do you have either shower bars, grab bars, non-slip mats or non-slip surfaces in your shower or bathtub? : Yes Do all your stairways have a railing or banister? : Yes Do you fasten your seatbelt when you are in a car?: Yes ADL: ADL In the past 7 days, did you need help from others to perform any of the following everyday activities: Eating, dressing, grooming,bathing, toileting, or walking / balance? : No In the past 7 days, did you need help from others to take care of any of the following: laundry, housekeeping, banking / finances,shopping, telephone use, food preparation, transportation, or taking medications? : No Living Will: Living Will Do you have a living will?: Yes Cognitive: Cognitive Screening: Mini-Cog Clock Drawing Test (CDT): 2 Words Recalled: 0 Total Score: 2 Total Score Interpretation: Abnormal Mini-Cog Hypertension: No Interventions: Patient declines any further evaluation / treatment for cognitive impairment Fall Risk: Fall Risk One or more falls in the last year:: No Advised to use a cane or walker to get around safely:: Yes Feels unsteady when walking:: Yes Steadies self on furniture while walking at home:: Yes Worried about falling:: No Depression Screening: Over the past 2 weeks, how often have you been bothered by any of the following problems? Little interest or pleasure in doing things: Not at all Feeling down, depressed, or hopeless: Not at all Patient Health Questionnaire-2 Score: 0 Interventions: Patient declines any further evaluation / treatment for this issue Tobacco Use: Tobacco Use History[2] Alcohol Use: Audit Alcohol Screening Q1: How often do you have a drink containing alcohol?: Never 1. Encounter for subsequent annual wellness visit (AWV) in Medicare patient (Primary) Stable, follow-up with endocrinology, low-fat low-carb meals, walk 150 minutes/week, vitamin D, calcium and magnesium and weightbearing exercise 2. Type 2 diabetes mellitus without complication, with long-term current use of insulin (HCC) Not ideal, follow-up with endocrinology continue insulin and metformin and Ozempic - CBC auto differential; Future - Comprehensive metabolic panel; Future - Lipid panel; Future - Hemoglobin A1c; Future - CBC auto differential - Comprehensive metabolic panel - Lipid panel - Hemoglobin A1c 3. Mixed hypercholesterolemia and hypertriglyceridemia Stable, continue Lipitor 4. Osteopenia, unspecified location Uncontrolled, see above and add Fosamax weekly 5. NSAID long-term use Stable on meloxicam, GI precautions discussed 6. Breast cancer screening by mammogram 7. Essential hypertension Stable, continue Vasotec [1] Current Outpatient Medications Medication Sig Dispense Refill Accu-Chek Softclix Lancets lancets TEST BLOOD SUGAR DAILY DIRECTED amLODIPine (Norvasc) 10 MG tablet Take 1 tablet by mouth once daily 180 tablet 1 aspirin 81 MG chewable tablet Chew 81 mg Once. B-D UF III MINI PEN NEEDLES 31G X 5 MM misc Use as instructed 100 each 3 Blood Glucose Monitoring Suppl (Blood Glucose Monitor System) w/Device kit 1 each by Other route 2 times daily. Accu-check Brand Type 2 diabetes mellitus without complication, with long-term current use of insulin ([facility]) ([facility]) - Primary E11.9 1 kit 0 busPIRone (Buspar) 5 MG tablet Take 1 tablet (5 mg) by mouth 2 times daily. One bid to prevent anxiety 60 tablet 5 cholecalciferol (Vitamin D-3) 25 MCG (1000 UT) tablet Take 3 tablets (75 mcg) by mouth daily. 270 tablet 1 enalapril (Vasotec) 20 MG tablet TAKE 1 TABLET BY MOUTH ONCE DAILY IN THE MORNING 90 tablet 1 glucose blood (Accu-Chek Guide) test strip 1 EACH BY IN VITRO ROUTE DAILY NEEDED. E11.9 200 each 3 meloxicam (Mobic) 7.5 MG tablet Take 7.5 mg by mouth as needed for mild pain (1-3). metFORMIN (Glucophage) 1000 MG tablet TAKE 1 TABLET (1,000 MG) BY MOUTH IN THE MORNING AND IN THE EVENING WITH MEALS 180 tablet 1 Ozempic, 2 MG/DOSE, 8 MG/3ML solution pen-injector INJECT 2MG SUBCUTANEOUSLY ONCE A WEEK alendronate (Fosamax) 70 MG tablet Take 1 tablet (70 mg) by mouth every 7 days. Take in the morning with a full glass of water, on an empty stomach, and do not take anything else by mouth or lie down for the next 30 min. 12 tablet 3 atorvastatin (Lipitor) 40 MG tablet Take 1 tablet (40 mg) by mouth daily for 90 doses. 90 tablet 1 insulin aspart (NovoLOG) 100 UNIT/ML pen 24 units 3 x a day 10 mL 5 insulin glargine (Lantus SoloStar) 100 UNIT/ML pen 50 Units q day. 15 Pen 11 No current facility-administered medications for this visit. [2] Social History Tobacco Use Smoking Status Never Smokeless Tobacco Never After obtaining consent, and per orders of Dr. Fong, injection of PREVNAR 20 given in Left deltoid by Shonda Garcia MA . Patient instructed to remain in clinic for 20 minutes afterwards, and to report any adverse reaction to me immediately. Did patient supply medication?No documented in this encounter [facility] 09-16-2024 Instructions Domingo Fong DO - 09/16/2024 10:40 AM EDT Personalized Preventative Plan for Adriane Herrera - 09/16/2024 Medicare offers a range of preventative health benefits. Some of the tests and screenings are paid in full while others may be subject to a deductible, co-insurance, and / or copay. Some of these benefits include a comprehensive review of your medical history including lifestyle, illnesses that may run in your family, and various assessments and screenings as appropriate. After reviewing your medical record and screening and assessments performed today, your provider may have ordered immunizations, labs, imaging, and / or referrals for you. A list of these orders (if applicable) as well as your Preventative Care list are included within your After Visit Summary for your review. Other Preventative Recommendations: A preventive eye exam by an medicare contact specialist is recommended every 1-2 years to screen for glaucoma, cataracts, macular degeneration, and other eye disorders. A preventive dental visit is recommended every 6 months. Try to get at least 150 minutes of exercise per week or 10,000 steps per day on a pedometer. You need 1200-1500mg of calcium and 9199-9388 international units of vitamin D per day. It is possible to meet your calcium requirement with diet alone, but a vitamin D supplement is usually necessary to meet this goal. When exposed to the sun, use a sunscreen that protects against both UVA and UVB radiation with an SPF of 30 or greater. Reapply every 2-3 hours or after sweating, drying off with a towel, or swimming. Always wear a seat belt when traveling in a car. Always wear a helmet when riding a bicycle or a motorcycle documented in this encounter [facility] 09-02-2024 Telephone encounter Note Recent Visits Date Type Provider Dept 05/13/24 Office Visit Domingo Fong DO [facility] 01/08/24 [facility] Show[facility] recent visits within past 365 days and meeting all other requirements Future Appointments Date Type Provider Dept 09/16/24 Appointment Domingo Fong DO [facility] Showing future appointments within next 90 days and meeting all other requirements Requested Prescriptions Pending Prescriptions Disp Refills enalapril (Vasotec) 20 MG tablet [Pharmacy Med Name: Enalapril Maleate 20 MG Oral Tablet] 90 tablet 0 Sig: TAKE 1 TABLET BY MOUTH ONCE DAILY IN THE MORNING Provider: Domingo Fong DO Verified pharmacy: yes Verified day(s) supplied: yes Verified refill(s) needed (previous prescription showing no refills in chart): Yes Have you received any controlled medications from any other provider? N/A Overdue for visit: No If yes - patient scheduled? N/A Most recent labs completed in chart? N/A None [facility] 09-02-2024 Miscellaneous Notes Recent Visits Date Type Provider Dept [facility]/13[facility] Office Visit Domingo Fong DO [facility] Showing recent visits within past 365 days and meeting all other requirements Future Appointments Date Type Provider Dept 06/23/25 [facility]ment [facility] Showing future appointments within next 90 days and meeting all other requirements Requested Prescriptions Pending Prescriptions Disp Refills enalapril (Vasotec) 20 MG tablet [Pharmacy Med Name: Enalapril Maleate 20 MG Oral Tablet] 90 tablet 0 Sig: TAKE 1 TABLET BY MOUTH ONCE DAILY IN THE MORNING Provider: Domingo Fong DO Verified pharmacy: yes Verified day(s) supplied: yes Verified refill(s) needed (previous prescription showing no refills in chart): Yes Have you received any controlled medications from any other provider? N/A Overdue for visit: No If yes - patient scheduled? N/A Most recent labs completed in chart? N/A None documented in this encounter [facility] 08-26-2024 Telephone encounter Note Ordering provider: Dr. Fong Date of last office visit: 05.13.2024 Date of next office visit: 09.16.2024 Updated/Validated preferred pharmacy: Yes Patient instructed to contact the pharmacy prior to picking up the medication: Yes (1) Medication name: atorvastatin (Lipitor) 40 MG tablet Medication dosage: 40 mg (Miligrams Monthly quantity needed: 90 How many day supply requestin year Medication route: oral (PO) Medication administration time(s): daily If taking medication PRN, reason for taking medication: N/A If this is a controlled substance do you receive this or any other controlled medication from any other doctor or facility: No Date of last refill (see medication tab): 01.08.2024 (2) Medication name: metFORMIN (Glucophage) 1000 MG tablet Medication dosage: 1000 mg (Miligrams Monthly quantity needed: 180 How many day supply requestin year Medication route: oral (PO) Medication administration time(s): 2 times a day (BID) If taking medication PRN, reason for taking medication: N/A If this is a controlled substance do you receive this or any other controlled medication from any other doctor or facility: No Date of last refill (see medication tab): 12.18.2023 (3) Medication name: cholecalciferol (Vitamin D-3) 25 MCG (1000 UT) tablet Medication dosage: 25 mcg (Micrograms) Monthly quantity needed: 270 How many day supply requestin year Medication route: oral (PO) Medication administration time(s): daily If taking medication PRN, reason for taking medication: N/A If this is a controlled substance do you receive this or any other controlled medication from any other doctor or facility: No Date of last refill (see medication tab): 05.24.2021 by historical Provider Patient states she does not take enalapril (Vasotec) 20 MG tablet , wants to know should she be taking this medication? Please advise, thank you. T [facility] 08-26-2024 Miscellaneous Notes Ordering provider: Dr. Fong Date of last office visit: 05.13.2024 Date of next office visit: 09.16.2024 Updated/Validated preferred pharmacy: Yes Patient instructed to contact the pharmacy prior to picking up the medication: Yes (1) Medication name: atorvastatin (Lipitor) 40 MG tablet Medication dosage: 40 mg (Miligrams Monthly quantity needed: 90 How many day supply requestin year Medication route: oral (PO) Medication administration time(s): daily If taking medication PRN, reason for taking medication: N/A If this is a controlled substance do you receive this or any other controlled medication from any other doctor or facility: No Date of last refill (see medication tab): 01.08.2024 (2) Medication name: metFORMIN (Glucophage) 1000 MG tablet Medication dosage: 1000 mg (Miligrams Monthly quantity needed: 180 How many day supply requestin year Medication route: oral (PO) Medication administration time(s): 2 times a day (BID) If taking medication PRN, reason for taking medication: N/A If this is a controlled substance do you receive this or any other controlled medication from any other doctor or facility: No Date of last refill (see medication tab): 12.18.2023 (3) Medication name: cholecalciferol (Vitamin D-3) 25 MCG (1000 UT) tablet Medication dosage: 25 mcg (Micrograms) Monthly quantity needed: 270 How many day supply requestin year Medication route: oral (PO) Medication administration time(s): daily If taking medication PRN, reason for taking medication: N/A If this is a controlled substance do you receive this or any other controlled medication from any other doctor or facility: No Date of last refill (see medication tab): 05.24.2021 by historical Provider Patient states she does not take enalapril (Vasotec) 20 MG tablet , wants to know should she be taking this medication? Please advise, thank you. documented in this encounter [facility] 08-13-2024 Note Referral to [facility] pended for dx and doctor's signature [facility] 08-13-2024 Telephone encounter Note Referral to [facility] pended for dx and doctor's signature [facility] 08-13-2024 Miscellaneous Notes Referral to [facility] pended for dx and doctor's signature Placed call to patient. Two patient identifers confirmed. Was able to speak to patient. All concerns in message have been addressed. No questions at this time. Call ended Pt consents referral Name of caller: Adriane Contact phone number: [phone] Relationship to Patient: patient Provider: Dr. Fong Practice: [facility] Chief Complaint/Reason for Call: Patient called in regards to the exercise stress test order placed by Dr. Fong on 05/14/24 and states they would like to complete this stress test without a treadmill. Patient states they were advised by a friend that there is something that can be put on their wrist instead of walking on the treadmill and they would like this order to specify this. Patient also states they would like to complete this at [facility] and they would like to see if this order can be sent. Patient is requesting a call back to be informed. Please advise. Best time of day caller can be reached: Any Patient advised that office/PCP has 24-48 business hours to return their call: Yes documented in this encounter [facility] 08-12-2024 Telephone encounter Note Placed call to patient. Two patient identifers confirmed. Was able to speak to patient. All concerns in message have been addressed. No questions at this time. Call ended Pt consents referral [facility] 08-12-2024 Telephone encounter Note Name of caller: Adriane Contact phone number: [phone] Relationship to Patient: patient Provider: Dr. Fong Practice: [facility] Chief Complaint/Reason for Call: Patient called in regards to the exercise stress test order placed by Dr. Fong on 05/14/24 and states they would like to complete this stress test without a treadmill. Patient states they were advised by a friend that there is something that can be put on their wrist instead of walking on the treadmill and they would like this order to specify this. Patient also states they would like to complete this at [facility] and they would like to see if this order can be sent. Patient is requesting a call back to be informed. Please advise. Best time of day caller can be reached: Any Patient advised that office/PCP has 24-48 business hours to return their call: Yes [facility] 07-22-2024 Note Message released to patient as written. Patient's further questions if applicable: Please place referral in the system. The patient would like to be seen at [facility] if possible. Please call patient. Were all questions from office addressed or relayed to the patient from encounter: Yes [facility] 07-22-2024 Telephone encounter Note Message released to patient as written. Patient's further questions if applicable: Please place referral in the system. The patient would like to be seen at [facility] if possible. Please call patient. Were all questions from office addressed or relayed to the patient from encounter: Yes [facility] 07-22-2024 Miscellaneous Notes Message released to patient as written. Patient's further questions if applicable: Please place referral in the system. The patient would like to be seen at [facility] if possible. Please call patient. Were all questions from office addressed or relayed to the patient from encounter: Yes Placed call to patient to discuss provider direction. Message left on voicemail to return call. Please release message to patient: Refer patient to [facility] for assessment for what type of cardiac imaging to evaluate her chest pain would be best for her. A letter was mailed to last known address. Placed call to patient to discuss provider direction. Message left on voicemail to return call. Please release message to patient: Refer patient to [facility] for assessment for what type of cardiac imaging to evaluate her chest pain would be best for her. Please advise patient then return to Referrals to proceed with scheduling patient. Pt does not feel they can complete the exercise stress test due to problems with her knee. She would like someone to call her to discuss her other options documented in this encounter [facility] 07-18-2024 Telephone encounter Note Placed call to patient to discuss provider direction. Message left on voicemail to return call. Please release message to patient: Refer patient to [facility] cardiology for assessment for what type of cardiac imaging to evaluate her chest pain would be best for her. A letter was mailed to last known address. [facility] 07-17-2024 Telephone encounter Note Placed call to patient to discuss provider direction. Message left on voicemail to return call. Please release message to patient: Refer patient to [facility] cardiology for assessment for what type of cardiac imaging to evaluate her chest pain would be best for her. [facility] 07-17-2024 Note Please advise patien t then return to Referrals to proceed with scheduling patient. [facility] 07-17-2024 Telephone encounter Note Please advise patient then return to Referrals to proceed with scheduling patient. [facility] 07-12-2024 Telephone encounter Note Pt does not feel they can complete the exercise stress test due to problems with her knee. She would like someone to call her to discuss her other options [facility] 07-09-2024 Telephone encounter Note Recent Visits Date Type Provider Dept 05/13/24 Office Visit Domingo Fong DO [facility] 01/08/24 Office Visit Domingo Fong DO [facility] Showing recent visits within past 365 days and meeting all other requirements Future Appointments Date Type Provider Dept 09/16/24 Appointment Domingo Fong DO [facility] Showing future appointments within next 90 days and meeting all other requirements Requested Prescriptions Pending Prescriptions Disp Refills amLODIPine (Norvasc) 10 MG tablet [Pharmacy Med Name: amLODIPine Besylate 10 MG Oral Tablet] 180 tablet 0 Sig: Take 1 tablet by mouth once daily Provider: Domingo Fong DO Verified pharmacy: yes Verified day(s) supplied: yes Verified refill(s) needed (previous prescription showing no refills in chart): Yes Have you received any controlled medications from any other provider? N/A Overdue for visit: No If yes - patient scheduled? Yes Most recent labs completed in chart? Yes Hypertension: Lab Results Component Value Date NA 138 11/15/2021 K 4.4 11/15/2021 EGFR 107 12/25/2023 BUN 12 12/25/2023 CREATININE 0.45 (L) 12/25/2023 [facility] 07-09-2024 Miscellaneous Notes Recent Visits Date Type Provider Dept 05/13/24 Office Visit Domingo Fong DO [facility] 01/08/24 Office Visit Domingo Fong DO [facility] Showing recent visits within past 365 days and meeting all other requirements Future Appointments Date Type Provider Dept 09/16/24 Appointment Domingo Fong DO [facility] Showing future appointments within next 90 days and meeting all other requirements Requested Prescriptions Pending Prescriptions Disp Refills amLODIPine (Norvasc) 10 MG tablet [Pharmacy Med Name: amLODIPine Besylate 10 MG Oral Tablet] 180 tablet 0 Sig: Take 1 tablet by mouth once daily Provider: Domingo Fong DO Verified pharmacy: yes Verified day(s) supplied: yes Verified refill(s) needed (previous prescription showing no refills in chart): Yes Have you received any controlled medications from any other provider? N/A Overdue for visit: No If yes - patient scheduled? Yes Most recent labs completed in chart? Yes Hypertension: Lab Results Component Value Date NA 138 11/15/2021 K 4.4 11/15/2021 EGFR 107 12/25/2023 BUN 12 12/25/2023 CREATININE 0.45 (L) 12/25/2023 documented in this encounter [facility] 05-20-2024 Telephone encounter Note Rx updated. [facility] 05-20-2024 Miscellaneous Notes Rx updated. Name of caller: Dora Keenan) Contact phone number: [phone] Relationship to Patient: Pharmacy Provider: Dr. Fong Practice: [facility] Chief Complaint/Reason for Call: Requesting call back to get specific instructions for Rx Blood Glucose Monitoring Suppl (Blood Glucose Monitor System) w/Device kit [[id number]]. Please advise Best time of day caller can be reached: Any AM Patient advised that office/PCP has 24-48 business hours to return their call: No documented in this encounter [facility] 05-17-2024 Telephone encounter Note Name of caller: Dora Keenan) Contact phone number: [phone] Relationship to Patient: Pharmacy Provider: Dr. Fong Practice: [facility] Chief Complaint/Reason for Call: Requesting call back to get specific instructions for Rx Blood Glucose Monitoring Suppl (Blood Glucose Monitor System) w/Device kit [[id number]]. Please advise Best time of day caller can be reached: Any AM Patient advised that office/PCP has 24-48 business hours to return their call: No [facility] 05-17-2024 Telephone encounter Note See other encounter [facility] 05-17-2024 Miscellaneous Notes See other encounter Name of caller: Dora Contact phone number: [phone] Relationship to Patient: [facility] Provider: Dr. Fong Practice: [facility] Chief Complaint/Reason for Call: Caller is requesting an Accu-check glucometer for the patient, states the patient dropped and broke the one she had. Please advise, thank you. Best time of day caller can be reached: Any Patient advised that office/PCP has 24-48 business hours to return their call: Yes documented in this encounter [facility] 05-17-2024 Telephone encounter Note Natividadmaik Arriola15 hours ago (4:19 PM) LS Name of caller: Dora Contact phone number: [phone] Relationship to Patient: [facility] Provider: Dr. Fong Practice: [facility] Chief Complaint/Reason for Call: Caller is requesting an Accu-check glucometer for the patient, states the patient dropped and broke the one she had. Please advise, thank you. Best time of day caller can be reached: Any Patient advised that office/PCP has 24-48 business hours to return their call: Yes [facility] 05-17-2024 Miscellaneous Notes Natividad Arriola15 hours ago (4:19 PM) LS Name of caller: Dora Contact phone number: [phone] Relationship to Patient: [facility] Provider: Dr. Fong Practice: [facility] Chief Complaint/Reason for Call: Caller is requesting an Accu-check glucometer for the patient, states the patient dropped and broke the one she had. Please advise, thank you. Best time of day caller can be reached: Any Patient advised that office/PCP has 24-48 business hours to return their call: Yes documented in this encounter [facility] 05-16-2024 Telephone encounter Note Name of caller: Dora Contact phone number: [phone] Relationship to Patient: [facility] Provider: Dr. Fong Practice: [facility] Chief Complaint/Reason for Call: Caller is requesting an Accu-check glucometer for the patient, states the patient dropped and broke the one she had. Please advise, thank you. Best time of day caller can be reached: Any Patient advised that office/PCP has 24-48 business hours to return their call: Yes [facility] 05-16-2024 Miscellaneous Notes Name of caller: Dora Contact phone number: [phone] Relationship to Patient: Becky [facility] Provider: Dr. Fong Practice: [facility] Chief Complaint/Reason for Call: Caller is requesting an Accu-check glucometer for the patient, states the patient dropped and broke the one she had. Please advise, thank you. Best time of day caller can be reached: Any Patient advised that office/PCP has 24-48 business hours to return their call: Yes documented in this encounter [facility] 05-14-2024 Note Addended by: DOMINGO GONZALES on: 05/14/2024 12:41 PM Modules accepted: Orders [facility] 05-14-2024 Note Addended by: DOMINGO GONZALES on: 05/14/2024 12:41 PM Modules accepted: Orders [facility] 05-14-2024 Note Addended by: DOMINGO GONZALES on: 05/14/2024 12:41 PM Modules accepted: Orders [facility] 05-14-2024 Miscellaneous Notes Addended by: DOMINGO FONG on: 05/14/2024 12:41 PM Modules accepted: Orders Addended by: ASHLEY DE LA ROSA on: 05/14/2024 10:43 AM Modules accepted: Orders Referral to [facility] pended for dx an doctor's signature Please verify which [facility] Apprentice you want pt be referred to Orders for stress test pended for dx and doctor's signature [facility] documented in this encounter [facility] 05-14-2024 Note Addended by: ASHLEY DE LA ROSA on: 05/14/2024 10:43 AM Modules accepted: Orders [facility] 05-14-2024 Note Addended by: ASHLEY DE LA ROSA on: 05/14/2024 10:43 AM Modules accepted: Orders [facility] 05-14-2024 Note Addended by: ASHLEY DE LA ROSA on: 05/14/2024 10:43 AM Modules accepted: Orders [facility] 05-14-2024 Note Referral to [facility] pended for dx an doctor's signature [facility] 05-14-2024 Telephone encounter Note Referral to [facility] pended for dx an doctor's signature [facility] 05-14-2024 Telephone encounter Note Please verify which [facility] Apprentice you want pt be referred to [facility] 05-13-2024 Telephone encounter Note Orders for stress test pended for dx and doctor's signature [facility]iatry List: [facility] 05-13-2024 Miscellaneous Notes Orders for stress test pended for dx and doctor's signature Podiatry List: [facility] documented in this encounter [facility] 05-13-2024 History of Present illness Narrative Images from the original note were not included. [facility] - [address] [facility] [id number] Visit type: Established Patient Reason for Visit: Follow-up (Med Check ) Assessment / Plan: Adriane was seen today for follow-up. Diagnoses and all orders for this visit: Other chest pain (Primary) Comments: Resolved but need to exclude coronary disease, stress test Orders: - ECG 12 lead; Future - ECG 12 lead Mixed hypercholesterolemia and hypertriglyceridemia Comments: Stable, continue Lipitor Diabetic retinopathy associated with type 2 diabetes mellitus, macular edema presence unspecified, unspecified laterality, unspecified retinopathy severity (HCC) Comments: Stable, continue follow-up with rice cleaning machine tender Breast cancer screening by mammogram - Bilateral screening mammogram with tomosynthesis; Future Essential hypertension Comments: Stable, continue enalapril and amlodipine Other orders - busPIRone (Buspar) 5 MG tablet; Take 1 tablet (5 mg) by mouth 2 times daily. One bid to prevent anxiety - insulin aspart (NovoLOG) 100 UNIT/ML pen; 24 units 3 x a day - insulin glargine (Lantus SoloStar) 100 UNIT/ML pen; 50 Units q day. - B-D UF III MINI PEN NEEDLES 31G X 5 MM mis; Use as instructed - glucose blood (Accu-Chek Guide) test strip; 1 EACH BY IN VITRO ROUTE DAILY NEEDED. E11.9 Subjective: Patient ID: Adriane Herrera is a 63 y.o. female. HPI non-smoker with history of insulin-dependent diabetes, hypertension hyperlipidemia presents for overall checkup. Recently saw rice cleaning machine tender and now on Ozempic with improvement of her glucose levels. Was on Trulicity previously. A1c not at goal but glucose levels are better. Patient has had a few events over the last 3 months where she had chest pain while working. Somewhat startling and it resolved after a few minutes of rest. Was substernal and did not radiate to the neck back or arms. Not associated with nausea or diaphoresis or palpitations. Has a strong family history of diabetes but no one with coronary disease. She denies cough or congestion. No heartburn or dysphagia. Symptoms seem to occur with physically demanding activities. Review of Systems no recent phlegm or fever. No sore throat or cough. [facility] to get [facility]. Denies PND orthopnea claudication or edema. Overdue for mammogram. Colonoscopy up-to-date. Needs podiatry referral for her hypertrophic toenails. No unhealing skin lesions. No new stresses or worry. Excited about her only daughter getting in September. No Known Allergies Current Outpatient Medications on File Prior to Visit Medication Sig Dispense Refill Accu-Chek Softclix Lancets lancets TEST BLOOD SUGAR DAILY DIRECTED amLODIPine (Norvasc) 10 MG tablet Take 1 tablet (10 mg) by mouth daily. 90 tablet 1 aspirin 81 MG chewable tablet Chew 81 mg Once. atorvastatin (Lipitor) 40 MG tablet Take 1 tablet (40 mg) by mouth daily for 90 doses. 90 tablet 1 cholecalciferol (Vitamin D-3) 25 MCG (1000 UT) tablet TAKE THREE TABLETS BY MOUTH EVERY DAY enalapril (Vasotec) 20 MG tablet TAKE 1 TABLET BY MOUTH EVERY DAY IN THE MORNING 30 tablet 5 meloxicam (Mobic) 15 MG tablet TAKE 1 TABLET (15 MG) BY MOUTH DAILY FOR 90 DOSES. (Patient taking differently: Take 15 mg by mouth daily as needed.) 90 tablet 0 metFORMIN (Glucophage) 1000 MG tablet TAKE 1 TABLET (1,000 MG) BY MOUTH IN THE MORNING AND IN THE EVENING WITH MEALS 180 tablet 1 Ozempic, 2 MG/DOSE, 8 MG/3ML solution pen-injector INJECT 2MG SUBCUTANEOUSLY ONCE A WEEK [DISCONTINUED] Accu-Chek Guide test strip 1 EACH BY IN VITRO ROUTE DAILY NEEDED. E11.9 100 each 3 [DISCONTINUED] B-D UF III MINI PEN NEEDLES 31G X 5 MM misc USE TO INJECT INSULIN DAILY [DISCONTINUED] busPIRone (Buspar) 5 MG tablet Take 1 tablet (5 mg) by mouth 2 times daily. One bid to prevent anxiety 60 tablet 2 [DISCONTINUED] insulin aspart (NovoLOG) 100 UNIT/ML pen 24 units 3 x a day 10 mL 3 [DISCONTINUED] insulin glargine (Lantus SoloStar) 100 UNIT/ML pen 50 Units q day. 15 Pen 3 [DISCONTINUED] dulaglutide (Trulicity) 3 MG/0.5ML solution pen-injector Inject 3 mg under the skin 1 (one) time per week. (Patient not taking: Reported on 05/13/2024) 4 each 2 No current facility-administered medications on file prior to visit. Patient Active Problem List Diagnosis NSAID long-term use Contracture of finger joint Mixed hypercholesterolemia and hypertriglyceridemia Diabetes mellitus (HCC) CTS (carpal tunnel syndrome) Essential hypertension Adjustment disorder with anxious mood Diabetic retinopathy (HCC) Patellofemoral arthritis of right knee Social History Tobacco Use Smoking status: Never Smokeless tobacco: Never Substance Use Topics Alcohol use: No Alcohol/week: 0.0 standard drinks of alcohol Past Surgical History: Procedure Laterality Date BREAST BIOPSY Left 1989 SECTION (HISTORICAL) x3 COLONOSCOPY 2011 Dr. Alvarez- negative- due 2021 COLONOSCOPY 12/2022 Abdi- neg- due 2032 ECTOPIC SURGERY Family History Problem Relation Name Age of Onset Alzheimer's disease Mother Sharlene 2011 Heart disease Mother Sharlene Afib - CHF at age 84 Diabetes type II Mother Sharlene oral Kidney disease Father Servando CRF Diabetes Father Servando age 64 Diabetes Sister Casi Diabetes Sister Janis Diabetes Sister Allergria Diabetes Sister Belgica No Known Problems Sister Ute No Known Problems Sister Inalda Stroke Brother Anurag 70 ICH due to aneurysm, HTN, smoker, ETOH Diabetes type II Brother Pranay Diabetes Brother Lr insulin Other ([id number]) Brother Makenna murdered in [facility] Diabetes Maternal Grandfather in 80s and 90s Objective: BP 110/62 Pulse 94 Temp 36.5 C (97.7 F) (Temporal) Ht 5' 4 (1.626 m) Wt 142 lb 3.2 oz (64.5 kg) SpO2 99% BMI 24.41 kg/m Physical Exam She appears well. Blood pressure stable. Well-hydrated. No neck masses adenopathy JVD or carotid bruits. No thyroid masses. Reflexes normal. Heart is rate without gallops murmurs or ectopy. Lungs are clear without rales wheezes or egophony. No chest wall pain with palpation. No skin changes. Abdomen soft nontender without pain hepatosplenomegaly or masses. No bruits. Femoral pulses well. She does decent pulses in her feet. There is no motor or sensory loss of the feet or toes. No lesions of the soles of her feet. EKG sinus rhythm without ischemia documented in this encounter [facility] 04-01-2024 Evaluation note Diagnosis Onset Date Resolution Diabetes chronic April 01, 2 025 11:05am Hypertension chronic April 01, 2024 11:05am Post-menopausal chronic April 012024 11:05am Vitamin D deficiency chronic 2024 11:05am Microalbuminuria acute May 1:04pm Diabetes chronic May 27 1:04pm High cholesterol chronic May 1:04pm Hypertension chronic May 27 025 1:04pm Vitamin D deficiency chronic 2024 1:04pm [facility] Work Phone: [phone]) 225-688712-19-2024 Telephone encounter Note* Telephone Encounter - Bettie RogersBrenda Reardon - 03/14/2024 1:56 PM EST Medication name: insulin aspart (NovoLOG) 100 UNIT/ML pen Medication dosage: 100 units Monthly quantity needed: 10 mL How many day supply requestin days Medication route: intramuscular injection (IM) Medication administration time(s): 3 times a day (TID) If taking medication PRN, reason for taking medication: N/A If this is a controlled substance do you receive this or any other controlled medication from any other doctor or facility: No Ordering provider: Dr. Fong Date of last office visit: 01.08.2024 Date of next office visit: 05.13.2024 Date of last refill: (see medication tab): 01.08.2024 Updated/Validated preferred pharmacy: Yes [facility] [address] [place] [address] Ph. [phone] Patient instructed to contact the pharmacy prior to picking up the medication: Yes [id number] Miscellaneous Notes* Telephone Encounter - Bettie Reardon - 03/14/2024 1:56 PM EST Medication name: insulin aspart (NovoLOG) 100 UNIT/ML pen Medication dosage: 100 units Monthly quantity needed: 10 mL How many day supply requestin days Medication route: intramuscular injection (IM) Medication administration time(s): 3 times a day (TID) If taking medication PRN, reason for taking medication: N/A If this is a controlled substance do you receive this or any other controlled medication from any other doctor or facility: No Ordering provider: Dr. Fong Date of last office visit: 01.08.2024 Date of next office visit: 05.13.2024 Date of last refill: (see medication tab): 01.08.2024 Updated/Validated preferred pharmacy: Yes [facility] [address] [place] [address] Ph. [phone] Patient instructed to contact the pharmacy prior to picking up the medication: Yes documented in this encounterSM[facility] [id number] Telephone encounter Note* Telephone Encounter - Shonda Garcia MA - 02/26/2024 10:40 AM EST Lab results faxed 02/26/24 [facility] 10:40[id number] Miscellaneous Notes* Telephone Encounter - Shonda Garcia MA - 02/26/2024 10:40 AM EST Lab results faxed 02/26/24 at 10:40am * Telephone Encounter - Kandace Rios - 02/26/2024 8:25 AM EST Name of caller: Adriane Contact phone number: [phone] Relationship to Patient: patient Provider: [facility] Practice: [facility] Chief Complaint/Reason for Call: Patient called and said that she needs her lab work sent to the [facility]. She said they can be faxed to [phone]. Please advise Best time of day caller can be reached: any Patient advised that office/PCP has 24-48 business hours to return their call: No documented in this encounterSMagruder [id number] Telephone encounter Note* Telephone Encounter - Kandace Rios - 02/26/2024 8:25 AM EST Name of caller: Adriane Contact phone number: [phone] Relationship to Patient: patient Provider: [facility]etal Practice: [facility] Chief Complaint/Reason for Call: Patient called and said that she needs her lab work sent to the [facility]. She said they can be faxed to [phone]. Please advise Best time of day caller can be reached: any Patient advised that office/PCP has 24-48 business hours to return their call: No [id number] Telephone encounter Note* Telephone Encounter - Ashley De La Rosa - 01/08/2024 1:21 PM EDT Referral fro Dr Patton and Natacha mix CNP pended for dx and doctor's signature [id number] Miscellaneous Notes* Telephone Encounter - Ashley De La Rosa - 01/08/2024 1:21 PM EDT Referral fro Dr Patton and Natacha mix CNP pended for dx and doctor's signature documented in this [facility]10-14-2024 History of Present illness Narrative* Domingo Fong DO - 01/08/2024 11:00 AM EDT Images from the original note were not included. [facility] - [address] [facility] [id number] Visit type: Established Patient Reason for Visit: Follow-up (Med Check ) and Flu Vaccine (Patient has declined to receive influenzavaccine in the office. ) Assessment / Plan: Adriane was seen today for follow-up and flu vaccine. Diagnoses and all orders for this visit: Type 2 diabetes mellitus without complication, with long-term current use of insulin ([facility]) ([facility]) (Primary) Comments: Not at goal, endocrine referral, continue metformin, Lantus, NovoLog and increase Trulicity to 3 mgweekly Essential hypertension Comments: Stable, continue enalapril and amlodipine Mixed hypercholesterolemia and hypertriglyceridemia Comments: Stable, continue Lipitor Diabetic retinopathy associated with type 2 diabetes mellitus, macular edema presence unspecified, unspecified laterality, unspecified retinopathy severity ([facility]) Encounter for monitoring NSAID therapy Dysphagia, unspecified type Comments: Recurrent, GI referral Other orders - busPIRone (Buspar) 5 MG tablet; Take 1 tablet (5 mg) by mouth 2 times daily. One bid to prevent anxiety - insulin glargine (Lantus SoloStar) 100 UNIT/ML pen; 50 Units q day. - atorvastatin (Lipitor) 40 MG tablet; Take 1 tablet (40 mg) by mouth daily for 90 doses. - insulin aspart (NovoLOG) 100 UNIT/ML pen; 24 units 3 x a day Subjective: Patient ID: Adriane Herrera is a 63 y.o. female. HPI type II diabetic for more than 30 years presents for overall checkup. Glucose levels are relatively stable but A1c at 7.9. No polyuria polydipsia. No signs of infection. No change in vision or skin. She is in agreement that she should see an rice cleaning machine tender and referral will be made to Dr. Mix in [place]. She now has Medicare benefits of allow her to go there. No change in vision but is history of retinopathy. Review of Systems no recent earache sore throat or cough. No chest pain or palpitations or dyspnea.Some heartburn is having occasionally feeling of something stuck in her mid esophagus. Saw GI a fewmonths ago but he deferred endoscopy at that time. She now has Medicare and feels that he will be able to do that. No melena or blood or early satiety. No weight loss. Colonoscopy up-to-date. Having some anxiety would like options rather than Celexa. Inquires if those drugs are safe. Questions about her creatinine and blood pressure management but things appear well. Somewhat reluctant to take meloxicam for her hands and knees but they have been helpful. No recent falls or trauma. She defers x-rays of those joints. Overall she eats sensibly and tries to stay active. Still working full-time. 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 She does state her has leukemia has been given a3-year life expectancy. [facility]. No Known Allergies Current Outpatient Medications on File Prior to Visit Medication Sig Dispense Refill Accu-Chek Guide test strip 1 EACH BY IN VITRO ROUTE DAILY NEEDED. E11.9 100 each 3 Accu-Chek Softclix Lancets lancets TEST BLOOD SUGAR DAILY DIRECTED amLODIPine (Norvasc) 10 MG tablet Take 1 tablet (10 mg) by mouth daily. 90 tablet 1 aspirin 81 MG chewable tablet Chew 81 mg Once. B-D UF III MINI PEN NEEDLES 31G X 5 MM [facility] [place] USE TO INJECT INSULIN DAILY cholecalciferol (Vitamin D-3) 25 MCG (1000 UT) tablet TAKE THREE TABLETS BY MOUTH EVERY DAY dulaglutide (Trulicity) 3 MG/0.5ML solution pen-injector Inject 3 mg under the skin 1 (one) time per week. 4 each 2 enalapril (Vasotec) 20 MG tablet TAKE 1 TABLET BY MOUTH EVERY DAY IN THE MORNING 30 tablet 5 meloxicam (Mobic) 15 MG tablet TAKE 1 TABLET (15 MG) BY MOUTH DAILY FOR 90 DOSES. 90 tablet 0 metFORMIN (Glucophage) 1000 MG tablet TAKE 1 TABLET (1,000 MG) BY MOUTH IN THE MORNING AND IN THE EVENING WITH MEALS 180 tablet 1 [DISCONTINUED] atorvastatin (Lipitor) 40 MG tablet TAKE 1 TABLET (40 MG) BY MOUTH DAILY FOR 90 DOSES. 90 tablet 1 [DISCONTINUED] citalopram (CeleXA) 10 MG tablet TAKE 1 TABLET BY MOUTH EVERY DAY NIGHTLY 30 tablet 2 [DISCONTINUED] insulin aspart (NovoLOG) 100 UNIT/ML pen 24 units 3 x a day 10 mL 3 [DISCONTINUED] insulin glargine (Lantus SoloStar) 100 UNIT/ML pen 50 Units q day. 15 Pen 3 [DISCONTINUED] dulaglutide (Trulicity) 1.5 MG/0.5ML solution pen-injector Inject 1.5 mg under the skin 1 (one) time per week. 4 Pen 2 [DISCONTINUED] insulin glargine (Lantus SoloStar) 100 UNIT/ML pen 44 Units q day. 24 each 3 [DISCONTINUED] Lantus 100 UNIT/ML injection INJECTED DAILY DIRECTED. 10 mL 11 No current facility-administered medications on file prior to visit. Patient Active Problem List Diagnosis NSAID long-term use Contracture of finger joint Mixed hypercholesterolemia and hypertriglyceridemia Diabetes mellitus (HCC) CTS (carpal tunnel syndrome) Essential hypertension Adjustment disorder with anxious mood Diabetic retinopathy (HCC) Patellofemoral arthritis of right knee Social History Tobacco Use Smoking status: Never Smokeless tobacco: Never Substance Use Topics Alcohol use: No Alcohol/week: 0.0 standard drinks of alcohol Past Surgical History: Procedure Laterality Date BREAST BIOPSY Left 1989 SECTION (HISTORICAL) x3 COLON[address]COPY [address] Alvarez- negative- due 2021 COLONOSCOPY 12/2022 Abdi- neg- due 2032 ECTOPIC SURGERY Family History Problem Relation Name Age of Onset Alzheimer's disease Mother Sharlene 2012 Heart disease Mother Sharlene Afib - CHF at age 84 Diabetes type II Mother Sharlene oral Kidney disease Father CRF Diabetes Father age 64 Diabetes Sister Diabetes Sister Diabetes Sister Diabetes Sister No Known Problems Sister No Known Problems Sister Stroke Brother 70 ICH due to aneurysm, HTN, smoker, ETOH Diabetes type II Brother Pranay Diabetes Brother Lr insulin Other ([id number]) Brother murdered in [facility] Diabetes Maternal Grandfather in 80s and 90s Objective: BP 110/60 (BP Location: Left arm, Patient Position: Sitting, BP Cuff Size: Large adult) Pulse 94 Temp 36.5 C (97.7 F) (Temporal) Ht 5' 4 (1.626 m) Wt 146 lb 9.6 oz (66.5 kg) SpO2 97% BMI25.16 kg/m Physical Exam Exam is unchanged. Very pleasant alert and engaging. Nonicteric. Moist mucous membranes. No neck masses JVD adenopathy thyroid lesions or carotid bruits. Reflexes normal. Heart is regular without gallops or murmurs or ectopy. Lungs are clear. Abdomen slightly obese without pain hepatosplenomegaly masses or bruits. No ascites. Femoral pedal pulses are excellent. There is no motor or sensory loss of the feet or toes. No skin breakdowns. documented in this [facility]10-06-2024 Miscellaneous Notes* Addendum Note - Sera Staton MA - 12/31/2023 10:45 AM EDTAddended by: SERA STATON on: 01/01/2024 09:32 AM Modules accepted: Orders documented in this [facility]10-06-2024 Note* Addendum Note - Sera Staton MA - 12/31/2023 10:45 AM EDTAddended by: SERA STATON on: 01/01/2024 09:32 AM Modules accepted: [id number] Telephone encounter Note* Telephone Encounter - Arlene Meyers LPN - 12/18/2023 2:37 PM EDT Left a message for patient to return my call to get patient scheduled with Dr. Fong. Please putcall thru to office for us to schedule her. [id number] Miscellaneous Notes* Telephone Encounter - Arlene Meyers LPN - 12/18/2023 2:37 PM EDT Left a message for patient to return my call to get patient scheduled with Dr. Fong. Please putcall thru to office for us to schedule her. * Telephone Encounter - Bozena Nuno - 12/18/2023 12:59 PM EDT Name of caller: Adriane Contact phone number: [phone] Relationship to Patient: patient Provider: Dr Fong Practice: [facility] Chief Complaint/Reason for Call: pt did not know her appt was today at 1 pm and had to reschedule to 01/07 with balwinder at 940. Pt stated she would like to have all of her labs drawn before the appt soshe could discuss the results at the appt. Pt would like to have everything checked, A1c, creatine,lipid, kidney and liver. Pt is requesting the labs are ordered and a call to let her know when theyare done. Please advise. Best time of day caller can be reached: any Patient advised that office/PCP has 24-48 business hours to return their call: Yes documented in this [facility]09-23-2024 Telephone encounter Note* Telephone Encounter - Bozena Nuno - 12/18/2023 1:02 PM EDT Ordering provider: Dr Damon Date of last office visit: 06/12/23 Date of next office visit: 01/08/24 Updated/Validated preferred pharmacy: Yes Patient instructed to contact the pharmacy prior to picking up the medication: Yes (1) Medication name: metFORMIN (Glucophage) 1000 MG tablet Medication dosage: 1000 mg (Miligrams Monthly quantity needed: 60 How many day supply requestin days Medication route: oral (PO) Medication administration time(s): 2 times a day (BID) If taking medication PRN, reason for taking medication: N/A If this is a controlled substance do you receive this or any other controlled medication from any other doctor or facility: N/A Date of last refill (see medication tab): 07/17/23 (2) Medication name: amLODIPine (Norvasc) 10 MG tablet Medication dosage: 10 mg (Miligrams Monthly quantity needed: 30 How many day supply requestin days Medication route: oral (PO) Medication administration time(s): daily If taking medication PRN, reason for taking medication: N/A If this is a controlled substance do you receive this or any other controlled medication from any other doctor or facility: N/A Date of last refill (see medication tab): 07/11/23 (3) Medication name: Trulicity 3 MG/0.5ML solution pen-injector [ Medication dosage: pt does not know if she should be taking the 1.5 mg or 3 mg. Please advise Monthly quantity needed: 4 each How many day supply requestin days Medication route: subcutaneous injection (SQ/SC) Medication administration time(s): weekly If taking medication PRN, reason for taking medication: N/A If this is a controlled substance do you receive this or any other controlled medication from any other doctor or facility: N/A Date of last refill (see medication tab): 09/19/23 [facility]09-23-2024 Miscellaneous Notes* Telephone Encounter - Bozena Nuno - 12/18/2023 1:02 PM EDT Ordering provider: Dr Damon Date of last office visit: 06/12/23 Date of next office visit: 01/08/24 Updated/Validated preferred pharmacy: Yes Patient instructed to contact the pharmacy prior to picking up the medication: Yes (1) Medication name: metFORMIN (Glucophage) 1000 MG tablet Medication dosage: 1000 mg (Miligrams Monthly quantity needed: 60 How many day supply requestin days Medication route: oral (PO) Medication administration time(s): 2 times a day (BID) If taking medication PRN, reason for taking medication: N/A If this is a controlled substance do you receive this or any other controlled medication from any other doctor or facility: N/A Date of last refill (see medication tab): 07/17/23 (2) Medication name: amLODIPine (Norvasc) 10 MG tablet Medication dosage: 10 mg (Miligrams Monthly quantity needed: 30 How many day supply requestin days Medication route: oral (PO) Medication administration time(s): daily If taking medication PRN, reason for taking medication: N/A If this is a controlled substance do you receive this or any other controlled medication from any other doctor or facility: N/A Date of last refill (see medication tab): 07/11/23 (3) Medication name: Trulicity 3 MG/0.5ML solution pen-injector [ Medication dosage: pt does not know if she should be taking the 1.5 mg or 3 mg. Please advise Monthly quantity needed: 4 each How many day supply requestin days Medication route: subcutaneous injection (SQ/SC) Medication administration time(s): weekly If taking medication PRN, reason for taking medication: N/A If this is a controlled substance do you receive this or any other controlled medication from any other doctor or facility: N/A Date of last refill (see medication tab): 09/19/23 documented in this [facility]09-23-2024 Telephone encounter Note* Telephone Encounter - Bozena Nuno - 12/18/2023 12:59 PM EDT Name of caller: Adriane Contact phone number: [phone] Relationship to Patient: patient Provider: Dr Fong Practice: [facility] Chief Complaint/Reason for Call: pt did not know her appt was today at 1 pm and had to reschedule to 01/07 with balwinder at 940. Pt stated she would like to have all of her labs drawn before the appt soshe could discuss the results at the appt. Pt would like to have everything checked, A1c, creatine,lipid, kidney and liver. Pt is requesting the labs are ordered and a call to let her know when theyare done. Please advise. Best time of day caller can be reached: any Patient advised that office/PCP has 24-48 business hours to return their call: Yes [employer] [id number] Telephone encounter Note* Telephone Encounter - Sofia Valladares MA - 09/19/2023 8:25 AM EDT Recent Visits Date Type Provider Dept 06/12/23 Office Visit Domingo Denny Hetal DO [facility] 11/14/22 Office Visit Domingo Denny Hetal DO [facility] 10/03/22 Office Visit Domingo Denny Maganzafar DO [facility] Showing recent visits within past 365 days and meeting all other requirements Future Appointments Date Type Provider Dept 12/18/23 Appointment [facility] Showing future appointments within next 90 days and meeting all other requirements Requested Prescriptions Pending Prescriptions Disp Refills enalapril (Vasotec) 20 MG tablet [Pharmacy Med Name: ENALAPRIL MALEATE 20 MG TAB] 30 tablet 5 Sig: TAKE 1 TABLET BY MOUTH EVERY DAY IN THE MORNING Trulicity 3 MG/0.5ML solution pen-injector [Pharmacy Med Name: TRULICITY 3 MG/0.5 ML PEN] 35 Sig: INJECT 3 MG SUBCUTANEOUSLY WEEKLY Lantus 100 UNIT/ML injection [Pharmacy Med Name: LANTUS 100 UNIT/ML VIAL] 10 mL 11 Sig: INJECTED DAILY DIRECTED. Provider: Domingo Fong DO Verified pharmacy: yes Verified day(s) supplied: yes Verified refill(s) needed (previous prescription showing no refills in chart): Yes Have you received any controlled medications from any other provider? N/A Overdue for visit: No If yes - patient scheduled? Yes Most recent labs completed in chart? Yes Diabetes: Lab Results Component Value Date HGBA1C 7.8 (H) 07/03/2023 MICROALBCREA 30-300 mg 09/06/2021 BUNCREATININ 35 (H) 07/03/2023 K 4.4 11/15/2021 NA 138 11/15/2021 LDL 38 09/06/2021 HDL 63 (H) 09/06/2021 CHOLESTEROLT 120 07/03/2023 TRIG 58 09/06/2021 [id number] Miscellaneous Notes* Telephone Encounter - Sofia Valladares MA - 09/19/2023 8:25 AM EDT Recent Visits Date Type Provider Dept 06/12/23 Office Visit Domingo Fong, DO [facility] 11/14/22 Office Visit Domingo Fong, DO [facility] 10/03/22 Office Visit Domingo FongDO [facility] Showing recent visits within past 365 days and meeting all other requirements Future Appointments Date Type Provider Dept 12/18/23 Appointment Domingo FongDO [facility] Showing future appointments within next 90 days and meeting all other requirements Requested Prescriptions Pending Prescriptions Disp Refills enalapril (Vasotec) 20 MG tablet [Pharmacy Med Name: ENALAPRIL MALEATE 20 MG TAB] 30 tablet 5 Sig: TAKE 1 TABLET BY MOUTH EVERY DAY IN THE MORNING Trulicity 3 MG/0.5ML solution pen-injector [Pharmacy Med Name: TRULICITY 3 MG/0.5 ML PEN] 35 Sig: INJECT 3 MG SUBCUTANEOUSLY WEEKLY Lantus 100 UNIT/ML injection [Pharmacy Med Name: LANTUS 100 UNIT/ML VIAL] 10 mL 11 Sig: INJECTED DAILY DIRECTED. Provider: Domingo Fong DO Verified pharmacy: yes Verified day(s) supplied: yes Verified refill(s) needed (previous prescription showing no refills in chart): Yes Have you received any controlled medications from any other provider? N/A Overdue for visit: No If yes - patient scheduled? Yes Most recent labs completed in chart? Yes Diabetes: Lab Results Component Value Date HGBA1C 7.8 (H) 07/03/2023 MICROALBCREA 30-300 mg 09/06/2021 BUNCREATININ 35 (H) 07/03/2023 K 4.4 11/15/2021 NA 138 11/15/2021 LDL 38 09/06/2021 HDL 63 (H) 09/06/2021 CHOLESTEROLT 120 07/03/2023 TRIG 58 09/06/2021 documented in this [facility]06-03-2024 Telephone encounter Note* Telephone Encounter - Sofia Valladares MA - 08/28/2023 12:09 PM EDT Recent Visits Date Type Provider Dept 06/12/23 Office Visit Domingo Fong DO [facility] 11/14/22 Office Visit Domingo Fong, DO [facility] 10/03/22 Office Visit Domingo Fong DO [facility] Showing recent visits within past 365 days and meeting all other requirements Future Appointments No visits were found meeting these conditions. Showing future appointments within next 90 days and meeting all other requirements Requested Prescriptions Pending Prescriptions Disp Refills atorvastatin (Lipitor) 40 MG tablet [Pharmacy Med Name: ATORVASTATIN 40 MG TABLET] 30 tablet 5 Sig: TAKE 1 TABLET (40 MG) BY MOUTH DAILY FOR 90 DOSES. Provider: Domingo Fong DO Verified pharmacy: yes Verified day(s) supplied: yes Verified refill(s) needed (previous prescription showing no refills in chart): Yes Have you received any controlled medications from any other provider? N/A Overdue for visit: No If yes - patient scheduled? Yes Most recent labs completed in chart? Yes Cholesterol: Lab Results Component Value Date LDL 38 09/06/2021 HDL 63 (H) 09/06/2021 CHOLESTEROLT 120 07/03/2023 TRIG 58 09/06/2021 [id number] Miscellaneous Notes* Telephone Encounter - Sofia Valladares MA - 08/28/2023 12:09 PM EDT Recent Visits Date Type Provider Dept 06/12/23 Office Visit Domingo Fong DO [facility] 11/14/22 Office Visit Domingo Fong DO [facility] 10/03/22 Office Visit Domingo Fong DO [facility] Showing recent visits within past 365 days and meeting all other requirements Future Appointments No visits were found meeting these conditions. Showing future appointments within next 90 days and meeting all other requirements Requested Prescriptions Pending Prescriptions Disp Refills atorvastatin (Lipitor) 40 MG tablet [Pharmacy Med Name: ATORVASTATIN 40 MG TABLET] 30 tablet 5 Sig: TAKE 1 TABLET (40 MG) BY MOUTH DAILY FOR 90 DOSES. Provider: Domingo oFng DO Verified pharmacy: yes Verified day(s) supplied: yes Verified refill(s) needed (previous prescription showing no refills in chart): Yes Have you received any controlled medications from any other provider? N/A Overdue for visit: No If yes - patient scheduled? Yes Most recent labs completed in chart? Yes Cholesterol: Lab Results Component Value Date LDL 38 09/06/2021 HDL 63 (H) 09/06/2021 CHOLESTEROLT 120 07/03/2023 TRIG 58 09/06/2021 documented in this encounterSMagruder [id number] Telephone encounter Note* Telephone Encounter - Makenzie Hilliard MA - 08/24/2023 11:07 AM EDT Spoke to patient and she said the pharmacy ended up calling her and told her the 3 mg became available and so she got the 3 mg yesterday. [id number] Miscellaneous Notes* Telephone Encounter - Makenzie Hilliard MA - 08/24/2023 11:07 AM EDT Spoke to patient and she said the pharmacy ended up calling her and told her the 3 mg became available and so she got the 3 mg yesterday. * Telephone Encounter - Sofia Valladares MA - 08/23/2023 9:18 AM EDT Attempted to call patient. Phone number would not dial out * Telephone Encounter - Timothy Schilling - 08/18/2023 12:13 PM EDT Name of caller: Adriane Contact phone number: [phone] Relationship to Patient: patient Provider: Hetal Practice: [facility] Chief Complaint/Reason for Call: Patient states the pharmacy is out of stock with dulaglutide (Trulicity) 3 MG/0.5ML solution pen-injector. Is there an alternative medication she can be prescribed? (Ozempic?). Please advise. Best time of day caller can be reached: any Patient advised that office/PCP has 24-48 business hours to return their call: Yes documented in this encounterSMagruder HospitalWuhvkt19-07-9724 Telephone encounter Note* Telephone Encounter - Sofia Valladares MA - 08/23/2023 9:18 AM EDT Attempted to call patient. Phone number would not dial out [id number] Telephone encounter Note* Telephone Encounter - Sera Staton MA - 08/18/2023 12:18 PM EDT Placed follow up call to this patient - she stated that she did understand that she needed to lowerher dose of Trulicity but could not hear her after that [facility] [id number] Miscellaneous Notes* Telephone Encounter - Sera Staton MA - 08/18/2023 12:18 PM EDT Placed follow up call to this patient - she stated that she did understand that she needed to lowerher dose of Trulicity but could not hear her after that * Telephone Encounter - Arlene Meyers LPN - 08/18/2023 12:06 PM EDT Called patient and relayed message to her but phone connection was very poor and could not further assist her questions. * Telephone Encounter - Dana Rivas - 08/18/2023 11:25 AM EDT Name of caller: Adriane Contact phone number: [phone] Relationship to Patient: patient Provider: [facility] Practice: [facility] Chief Complaint/Reason for Call: Pt states that Trulicity 4.5 mg is back ordered and she is unable to get it. Pt has been without her medication for two months. She is inquiring about going back on Ozempic. She stated if not, perhaps a smaller dose of 2 mg of Trulicity. Please send new script to [facility] in [place]. Call pt to advise. Best time of day caller can be reached: any Patient advised that office/PCP has 24-48 business hours to return their call: Yes documented in this encounterSMagruder [id number] Telephone encounter Note* Telephone Encounter - Timothy Schilling - 08/18/2023 12:13 PM EDT Name of caller: Adriane Contact phone number: [phone] Relationship to Patient: patient Provider: [facility] Practice: [facility] Chief Complaint/Reason for Call: Patient states the pharmacy is out of stock with dulaglutide (Trulicity) 3 MG/0.5ML solution pen-injector. Is there an alternative medication she can be prescribed? (Ozempic?). Please advise. Best time of day caller can be reached: any Patient advised that office/PCP has 24-48 business hours to return their call: Yes [facility] [id number] Telephone encounter Note* Telephone Encounter - Arlene Meyers LPN - 08/18/2023 12:06 PM EDT Called patient and relayed message to her but phone connection was very poor and could not further assist her questions. [facility] [id number] Telephone encounter Note* Telephone Encounter - Dana Rivas - 08/18/2023 11:25 AM EDT Name of caller: Adriane Contact phone number: [phone] Relationship to Patient: patient Provider: [facility]etal Practice: [facility] Chief Complaint/Reason for Call: Pt states that Trulicity 4.5 mg is back ordered and she is unable to get it. Pt has been without her medication for two months. She is inquiring about going back on Ozempic. She stated if not, perhaps a smaller dose of 2 mg of Trulicity. Please send new script to [facility] in [place]. Call pt to advise. Best time of day caller can be reached: any Patient advised that office/PCP has 24-48 business hours to return their call: Yes [facility] HamiltonIofaab66-83-0579 Telephone encounter Note* Telephone Encounter - Ashley De La Rosa - 07/18/2023 3:11 PM EDT Test cancelled - see TE on 05/12/23 [facility] [id number] Miscellaneous Notes* Telephone Encounter - Ashley De La Rosa - 07/18/2023 3:11 PM EDT Test cancelled - see TE on 05/12/23 * Telephone Encounter - Richelle Mustafa - 07/18/2023 2:07 PM EDT Reason for call:I called patient to get scheduled for her Nm stess test and she was wondering if itgot approved through ins? She said she will only schedule testing if it get authed. If you are ableto contact ins to see if its approved or not. Thank you! Contact Phone Number: Joshua ma [phone]. documented in this encounterSMagruder HospitalPaszyo57-17-9349 Note* Addendum Note - Ashley De La Rosa - 07/18/2023 3:10 PM EDTAddended by: ASHLEY DE LA ROSA on: 07/18/2023 03:10 PM Modules accepted: Orders [facility] [id number] Miscellaneous Notes* Addendum Note - Ashley De La Rosa - 07/18/2023 3:10 PM EDTAddended by: ASHLEY DE LA ROSA on: 07/18/2023 03:10 PM Modules accepted: Orders * Telephone Encounter - Ashley De La Rosa - 11/14/2022 5:13 PM EDT Orders pended for dx and doctor's signature documented in this encounterSMagruder HospitalIftczc05-71-5424 Telephone encounter Note* Telephone Encounter - Richelle Mustafa - 07/18/2023 2:07 PM EDT Reason for call:I called patient to get scheduled for her Nm stess test and she was wondering if itgot approved through ins? She said she will only schedule testing if it get authed. If you are ableto contact ins to see if its approved or not. Thank you! Contact Phone Number: sam from scheduling [phone]. [facility] [id number] Telephone encounter Note* Telephone Encounter - Radha Herring MA - 07/17/2023 11:00 AM EDT Recent Visits Date Type Provider Dept 06/12/23 Office Visit Domingo Fong, DO [facility] 11/14/22 Office Visit Domingo Fong, DO [facility] 10/03/22 Office Visit Domingo Fong, DO [facility] Showing recent visits within past 365 days and meeting all other requirements Future Appointments No visits were found meeting these conditions. Showing future appointments within next 90 days and meeting all other requirements Requested Prescriptions Pending Prescriptions Disp Refills metFORMIN (Glucophage) 1000 MG tablet [Pharmacy Med Name: METFORMIN HCL 1,000 MG TABLET] 60 tablet 2 Sig: TAKE 1 TABLET (1,000 MG) BY MOUTH IN THE MORNING AND IN THE EVENING WITH MEALS meloxicam (Mobic) 15 MG tablet [Pharmacy Med Name: MELOXICAM 15 MG TABLET] 30 tablet 2 Sig: TAKE 1 TABLET (15 MG) BY MOUTH DAILY FOR 90 DOSES. Provider: Domingo Fong DO Verified pharmacy: yes Verified day(s) supplied: yes Verified refill(s) needed (previous prescription showing no refills in chart): No - unable to verify prescription refills in chart Have you received any controlled medications from any other provider? No Overdue for visit: No If yes - patient scheduled? No Most recent labs completed in chart? N/A [facility] [id number] Miscellaneous Notes* Telephone Encounter - Radha Herring MA - 07/17/2023 11:00 AM EDT Recent Visits Date Type Provider Dept 06/12/23 Office Visit DO [facility]an [facility] 11/14/22 Office Visit DO [facility] 10/03/22 Office Visit DO [facility] Showing recent visits within past 365 days and meeting all other requirements Future Appointments No visits were found meeting these conditions. Showing future appointments within next 90 days and meeting all other requirements Requested Prescriptions Pending Prescriptions Disp Refills metFORMIN (Glucophage) 1000 MG tablet [Pharmacy Med Name: METFORMIN HCL 1,000 MG TABLET] 60 tablet 2 Sig: TAKE 1 TABLET (1,000 MG) BY MOUTH IN THE MORNING AND IN THE EVENING WITH MEALS meloxicam (Mobic) 15 MG tablet [Pharmacy Med Name: MELOXICAM 15 MG TABLET] 30 tablet 2 Sig: TAKE 1 TABLET (15 MG) BY MOUTH DAILY FOR 90 DOSES. Provider: Domingo Fong DO Verified pharmacy: yes Verified day(s) supplied: yes Verified refill(s) needed (previous prescription showing no refills in chart): No - unable to verify prescription refills in chart Have you received any controlled medications from any other provider? No Overdue for visit: No If yes - patient scheduled? No Most recent labs completed in chart? N/A documented in this [place] [id number] Telephone encounter Note* Telephone Encounter - Trisha Pierre - 07/11/2023 8:43 AM EDT Orders pended for doctor signature [id number] Miscellaneous Notes* Telephone Encounter - Trisha Pierre - 07/11/2023 8:43 AM EDT Orders pended for doctor signature * Telephone Encounter - Trisha Pierre - 07/11/2023 8:41 AM EDT ----- Message from Makenzie Hilliard MA sent at 07/11/2023 8:20 AM EDT ----- Patient agrees to see a rice cleaning machine tender. documented in this [place] [id number] Telephone encounter Note* Telephone Encounter - Trisha Pierre - 07/11/2023 8:41 AM EDT ----- Message from Makenzie Hilliard MA sent at 07/11/2023 8:20 AM EDT ----- Patient agrees to see a rice cleaning machine tender. [id number] Telephone encounter Note* Telephone Encounter - Makenzie Hilliard MA - 07/11/2023 8:20 AM EDT [id number] Miscellaneous Notes* Telephone Encounter - Makenzie Hilliard MA - 07/11/2023 8:20 AM EDT Rx loaded documented in this [facility]04-08-2024 Telephone encounter Note* Telephone Encounter - Makenzie Hilliard MA - 07/03/2023 10:06 AM EDT [facility] [id number] Miscellaneous Notes* Telephone Encounter - Makenzie Hilliard MA - 07/03/2023 10:06 AM EDT Rx loaded documented in this [facility]03-18-2024 Telephone encounter Note* Telephone Encounter - Ashley De La Rosa - 06/12/2023 4:42 PM EDT Referral pended for dx and doctor's signature [facility] [id number] Miscellaneous Notes* Telephone Encounter - Ashley De La Rosa - 06/12/2023 4:42 PM EDT Referral pended for dx and doctor's signature documented in this [facility]03-18-2024 History of Present illness Narrative* Domingo Fong DO - 06/12/2023 1:30 PM EDT Images from the original note were not included. [facility] [address] [facility] [id number] Visit type: Established Patient Reason for Visit: Follow-up (6 month med check ) Assessment / Plan: Adriane was seen today for follow-up. Diagnoses and all orders for this visit: Type 2 diabetes mellitus without complication, with long-term current use of insulin ([facility]/HCC) ([facility]) (Primary) Comments: Uncontrolled, continue metformin, Trulicity, Lantus and NovoLog. She again declines endocrine referral Orders: - CBC auto differential; Future - Comprehensive metabolic panel; Future - Vitamin B12; Future - XR chest 2 views; Future - CBC auto differential - Comprehensive metabolic panel - Vitamin B12 Mixed hypercholesterolemia and hypertriglyceridemia Comments: Stable, continue Lipitor, check labs soon Orders: - Lipid panel; Future - TSH; Future - Lipid panel - TSH Essential hypertension Comments: Stable, continue enalapril and amlodipine NSAID long-term use Comments: Stable, continue meloxicam with GI precautions discussed Encounter for monitoring NSAID therapy - Lipid panel; Future - Lipid panel Right-sided chest pain Comments: Recurrent, urged patient to do chest x-ray Orders: - XR chest 2 views; Future Dysphagia, unspecified type Comments: Recurrent, apparently no EGD done at time of colonoscopy. GI referral Breast cancer screening by mammogram Comments: Ordered, needs BUSINESS OBJECTS ANALYST exam. Orders: - Bilateral screening mammogram with tomosynthesis; Future Other orders - dulaglutide (Trulicity) 4.5 MG/0.5ML solution pen-injector; Inject 4.5 mg under the skin 1 (one) time per week. - insulin glargine (Lantus SoloStar) 100 UNIT/ML pen; 44 Units q day. - insulin aspart (NovoLOG) 100 UNIT/ML pen; If BS is 70-150 take 4 units, If 151-200, take 8 units,if 201-250, take 12 units, over 250, take 14 units/day Subjective: Patient ID: Adriane Herrera is a 62 y.o. female. HPI suboptimally controlled type II diabetic on insulin with history of hypertension hyperlipidemiapresents for checkup. Recent [facility]c [facility] was 8.7 , she admits to having some dietary indiscretions. Does not feel particularly ill but has a few ongoing concerns. Intermittent difficulty swallowing foods in the mid epigastric area. Occurs with eating and no exertional component. She was referred to GI last fall for evaluation for upper endoscopy and it was apparently discussed at the visit but the physician only did the colonoscopy. That was negative. She ishaving intermittent symptoms. But no early satiety and she has gained weight. No melena or blood. She does not smoke or drink. Having ongoing achiness in the right upper chest, she had not gotten the chest x-ray we had ordered. Denies exertional chest pain jaw pain or bilateral arm pain. No PND orthopnea claudication or edema Review of Systems no change in vision. No recent earache sore throat or cough. No unhealing skin lesions. Denies palpitations or exertional chest pain. No early satiety. Bowels are regular. She is asking for mammogram but declines breast exam or BUSINESS OBJECTS ANALYST exam. No breast masses nipple discharge or pain. No Known Allergies Current Outpatient Medications on File Prior to Visit Medication Sig Dispense Refill Accu-Chek Softclix Lancets lancets TEST BLOOD SUGAR DAILY DIRECTED amLODIPine (Norvasc) 10 MG tablet Take 1 tablet (10 mg) by mouth daily. 90 tablet 1 aspirin 81 MG chewable tablet Chew 81 mg Once. atorvastatin (Lipitor) 40 MG tablet Take 1 tablet (40 mg) by mouth daily for 90 doses. 30 tablet 5 B-D UF III MINI PEN NEEDLES 31G X 5 MM [facility] [place] USE TO INJECT INSULIN DAILY cholecalciferol (Vitamin D-3) 25 MCG (1000 UT) tablet TAKE THREE TABLETS BY MOUTH EVERY DAY citalopram (CeleXA) 10 MG tablet TAKE 1 TABLET BY MOUTH EVERY DAY NIGHTLY 30 tablet 2 enalapril (Vasotec) 20 MG tablet One q am 90 tablet 1 meloxicam (Mobic) 15 MG tablet Take 1 tablet (15 mg) by mouth daily for 90 doses. 90 tablet 0 metFORMIN (Glucophage) 1000 MG tablet TAKE 1 TABLET (1,000 MG) BY MOUTH IN THE MORNING AND IN THE EVENING WITH MEALS 180 tablet 0 [DISCONTINUED] dulaglutide (Trulicity) 4.5 MG/0.5ML solution pen-injector Inject 4.5 mg under the skin 1 (one) time per week. 4 each 11 [DISCONTINUED] insulin aspart (NovoLOG) 100 UNIT/ML pen If BS is 70-150 take 4 units, If 151-200, take 8 units, if 201-250, take 12 units, over 250, take 14 units/day 10 mL 2 [DISCONTINUED] insulin glargine (Lantus SoloStar) 100 UNIT/ML pen Increase to 60 U q AM 24 each 3 Accu-Chek Guide test strip 1 EACH BY IN VITRO ROUTE DAILY NEEDED. E11.9 100 each 3 No current facility-administered medications on file prior to visit. Patient Active Problem List Diagnosis NSAID long-term use Contracture of finger joint Mixed hypercholesterolemia and hypertriglyceridemia Diabetes mellitus (HCC) CTS (carpal tunnel syndrome) Essential hypertension Adjustment disorder with anxious mood Diabetic retinopathy (HCC) Patellofemoral arthritis of right knee Social History Tobacco Use Smoking status: Never Smokeless tobacco: Never Substance Use Topics Alcohol use: No Alcohol/week: 0.0 standard drinks of alcohol Past Surgical History: Procedure Laterality Date BREAST BIOPSY Left 1989 SECTION (HISTORICAL) x3 COLONOSCOPY 2011 Dr. Alvarez- negative- due 2021 COLONOSCOPY 12/2022 Abdi- neg- due 2032 ECTOPIC SURGERY Family History Problem Relation Name Age of Onset Alzheimer's disease Mother Sharlene 2012 Heart disease Mother Sharlene Afib - CHF at age 84 Diabetes type II Mother Sharlene Kidney disease Father CRF Diabetes Father age 64 Diabetes Sister Diabetes Sister Diabetes Sister Diabetes Sister No Known Problems Sister No Known Problems Sister Stroke Brother 70 ICH due to aneurysm, HTN, smoker, ETOH Diabetes type II Brother Pranay Diabetes Brother Lr insulin Other ([id number]) Brother murdered in [facility] Diabetes Maternal Grandfather in 80s and 90s Objective: BP 126/78 Pulse 68 Temp 36.1 C (97 F) (Temporal) Ht 5' 4 (1.626 m) Wt 143 lb (64.9 kg) SpO2 97% BMI 24.55 kg/m Physical Exam The physical exam is generally normal. Patient appears well, alert and oriented x 3, pleasant, cooperative. Vitals are as noted. No carotid bruits. Neck supple, no abnormal adenopathy, thyroid lesions or masses. Ears, nose and throat are normal without acute findings. Lungs are clear to auscultation. Heart is regular, without murmurs, gallops or ectopy. Abdomen is soft, non tender, without masses, hepatosplenomegaly, or bruits. Normal BS evident. Extremities do not have any skin breakdowns but feet are very cool. Pulses are however palpable. There is no motor or sensory loss noted. No worrisome skin lesions. Screening neurological exam is normal without focal deficits. documented in this [facility]03-18-2024 Instructions* Patient Instructions* Domingo Fong DO - 06/12/2023 1:30 PM EDT Get mammogram as ordered. You should schedule a BUSINESS OBJECTS ANALYST exam for complete breast exam, Pap smear and pelvic exam. Call when you are ready to get referred to an rice cleaning machine tender. Please obtain chest x-ray for evaluation of right upper chest pain. Certainly if you develop mid chest shortness of breath or chest pain with physical activity please call for reevaluation with EKG and possible stress test. documented in this [facility]01-22-2024 Telephone encounter Note* Telephone Encounter - Makenzie Hilliard MA - 04/17/2023 3:32 PM EST [id number] Miscellaneous Notes* Telephone Encounter - Makenzie Hilliard MA - 04/17/2023 3:32 PM EST Pt scheduled 05/15/23 * Telephone Encounter - Makenzie Hilliard MA - 04/17/2023 1:18 PM EST Rx loaded * Telephone Encounter - Bettie Reardon - 04/17/2023 11:45 AM EST Ordering provider: Dr. Fong Date of last office visit: NA Date of next office visit: 05.15.2023 Updated/Validated preferred pharmacy: Yes Patient instructed to contact the pharmacy prior to picking up the medication: Yes (1) Medication name: amLODIPine (Norvasc) 10 MG tablet Medication dosage: 10 mg (Miligrams Monthly quantity needed: 90 How many day supply requestin days Medication route: oral (PO) Medication administration time(s): daily If taking medication PRN, reason for taking medication: N/A If this is a controlled substance do you receive this or any other controlled medication from any other doctor or facility: No Date of last refill (see medication tab): 12.19.2022 (2) Medication name: enalapril (Vasotec) 20 MG tablet Medication dosage: 20 mg (Miligrams Monthly quantity needed: 90 How many day supply requestin days Medication route: oral (PO) Medication administration time(s): daily If taking medication PRN, reason for taking medication: N/A If this is a controlled substance do you receive this or any other controlled medication from any other doctor or facility: No Date of last refill (see medication tab): 12.19.2022 (3) Medication name: metFORMIN (Glucophage) 1000 MG tablet Medication dosage: 1000 mg (Miligrams Monthly quantity needed: 60 How many day supply requestin days Medication route: oral (PO) Medication administration time(s): 2 times a day (BID) If taking medication PRN, reason for taking medication: N/A If this is a controlled substance do you receive this or any other controlled medication from any other doctor or facility: No Date of last refill (see medication tab): (4) Medication name: insulin aspart (NovoLOG) 100 UNIT/ML pen Medication dosage: 100 UNIT/ML Monthly quantity needed: 10 mL How many day supply requestin days Medication route: intramuscular injection (IM) Medication administration time(s): 3 times a day (TID) If taking medication PRN, reason for taking medication: N/A If this is a controlled substance do you receive this or any other controlled medication from any other doctor or facility: No Date of last refill (see medication tab): 10.03.2022 (5) Medication name: Accu-Chek Guide test strip Medication dosage: NA NA Monthly quantity needed: 1 box How many day supply requestin days Medication route: intramuscular injection (IM) Medication administration time(s): 3 times a day (TID) If taking medication PRN, reason for taking medication: N/A If this is a controlled substance do you receive this or any other controlled medication from any other doctor or facility: No Date of last refill (see medication tab): 01.18.2022 (6) Medication name: meloxicam (Mobic) 15 MG tablet Medication dosage: 15 mg (Miligrams Monthly quantity needed: 90 How many day supply requestin days Medication route: oral (PO) Medication administration time(s): daily If taking medication PRN, reason for taking medication: N/A If this is a controlled substance do you receive this or any other controlled medication from any other doctor or facility: No Date of last refill (see medication tab): 12.29.2022 documented in this encounterSMagruder [id number] Telephone encounter Note* Telephone Encounter - Makenzie Hilliard MA - 04/17/2023 1:18 PM EST [id number] Telephone encounter Note* Telephone Encounter - Bettie Reardon - 04/17/2023 11:45 AM EST Ordering provider: Dr. Fong Date of last office visit: NA Date of next office visit: 05.15.2023 Updated/Validated preferred pharmacy: Yes Patient instructed to contact the pharmacy prior to picking up the medication: Yes (1) Medication name: amLODIPine (Norvasc) 10 MG tablet Medication dosage: 10 mg (Miligrams Monthly quantity needed: 90 How many day supply requestin days Medication route: oral (PO) Medication administration time(s): daily If taking medication PRN, reason for taking medication: N/A If this is a controlled substance do you receive this or any other controlled medication from any other doctor or facility: No Date of last refill (see medication tab): 12.19.2022 (2) Medication name: enalapril (Vasotec) 20 MG tablet Medication dosage: 20 mg (Miligrams Monthly quantity needed: 90 How many day supply requestin days Medication route: oral (PO) Medication administration time(s): daily If taking medication PRN, reason for taking medication: N/A If this is a controlled substance do you receive this or any other controlled medication from any other doctor or facility: No Date of last refill (see medication tab): 12.19.2022 (3) Medication name: metFORMIN (Glucophage) 1000 MG tablet Medication dosage: 1000 mg (Miligrams Monthly quantity needed: 60 How many day supply requestin days Medication route: oral (PO) Medication administration time(s): 2 times a day (BID) If taking medication PRN, reason for taking medication: N/A If this is a controlled substance do you receive this or any other controlled medication from any other doctor or facility: No Date of last refill (see medication tab): (4) Medication name: insulin aspart (NovoLOG) 100 UNIT/ML pen Medication dosage: 100 UNIT/ML Monthly quantity needed: 10 mL How many day supply requestin days Medication route: intramuscular injection (IM) Medication administration time(s): 3 times a day (TID) If taking medication PRN, reason for taking medication: N/A If this is a controlled substance do you receive this or any other controlled medication from any other doctor or facility: No Date of last refill (see medication tab): 10.03.2022 (5) Medication name: Accu-Chek Guide test strip Medication dosage: NA NA Monthly quantity needed: 1 box How many day supply requestin days Medication route: intramuscular injection (IM) Medication administration time(s): 3 times a day (TID) If taking medication PRN, reason for taking medication: N/A If this is a controlled substance do you receive this or any other controlled medication from any other doctor or facility: No Date of last refill (see medication tab): 01.18.2022 (6) Medication name: meloxicam (Mobic) 15 MG tablet Medication dosage: 15 mg (Miligrams Monthly quantity needed: 90 How many day supply requestin days Medication route: oral (PO) Medication administration time(s): daily If taking medication PRN, reason for taking medication: N/A If this is a controlled substance do you receive this or any other controlled medication from any other doctor or facility: No Date of last refill (see medication tab): 12.29.2022 [facility]11-08-2023 Telephone encounter Note* Telephone Encounter - Makenzie Hilliard MA - 02/01/2023 12:58 PM EST Spoke with patient and all was addressed [id number] Miscellaneous Notes* Telephone Encounter - Makenzie Hilliard MA - 02/01/2023 12:58 PM EST Spoke with patient and all was addressed * Telephone Encounter - Yaritza Abel RN - 02/01/2023 11:57 AM EST S: Patient spoke with CAC nurse regarding overall Not feeling well B: Onset of symptoms/concern few months A: Patient's called for the patient. 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 He reports that he is on her HIPAA form. She has been feeling run down and tired for a while He reports that she has a chronic cough.She has not recenty tested for COVID. She told me to call and gether an appointment on Monday. wants to see Dr Fong and get Flu shot, repots that she is diabetic and occasionally has low readings that she has to eat something with sugar. R: Appointment with Dr Fong for tomorrow offered. If she wants to see him or a PA it will be a few weeks. He requested that the appointment for tomorrow will be good. Advised to arrive 15 min early with insurance information, med list and ID and to wear a mask as she has a cough. To increase fluids, rest and call if fever or any symptoms develop or worsens, agreeable Patient understands care advice. No further needs at this time. Patient instructed to call back with new or worsening symptoms. ADDENDUM: Patient declined tomorrow appointment Patient to call after work to schedule appointment. Reason for Disposition Weakness is a chronic symptom (recurrent or ongoing AND lasting > 4 weeks) Protocols used: Weakness (Generalized) and [id number] documented in this encounterSMagruder [id number] Telephone encounter Note* Telephone Encounter - Yaritza Abel RN - 02/01/2023 11:57 AM EST S: Patient spoke with CAC nurse regarding overall Not feeling well B: Onset of symptoms/concern few months A: Patient's called for the patient. 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 He reports that he is on her HIPAA form. She has been feeling run down and tired for a while He reports that she has a chronic cough.She has not recenty tested for COVID. She told me to call and gether an appointment on Monday. wants to see Dr Fong and get Flu shot, repots that she is diabetic and occasionally has low readings that she has to eat something with sugar. R: Appointment with Dr Fong for tomorrow offered. If she wants to see him or a PA it will be a few weeks. He requested that the appointment for tomorrow will be good. Advised to arrive 15 min early with insurance information, med list and ID and to wear a mask as she has a cough. To increase fluids, rest and call if fever or any symptoms develop or worsens, agreeable Patient understands care advice. No further needs at this time. Patient instructed to call back with new or worsening symptoms. ADDENDUM: Patient declined tomorrow appointment Patient to call after work to schedule appointment. Reason for Disposition Weakness is a chronic symptom (recurrent or ongoing AND lasting > 4 weeks) Protocols used: Weakness (Generalized) and [id number] [facility]10-14-2023 NoteHNO ID: [id number] Author: Note, Interface Service: ? Author Type: ? Type: Progress Notes Filed: 01/07/2023 5:29 AM Note Text: Epic Scheduled Downtime: 01/07/2023 1:00:00 AM to 01/07/2023 1:28:00 [facility]10-10-2023 Telephone encounter Note* Telephone Encounter - Arlene Meyers LPN - 01/03/2023 3:15 PM EDT Talked to patient and she is going to go to the MD to get her lab work on levels and will have themforward it to us for review also. [place] [id number] Miscellaneous Notes* Telephone Encounter - Arlene Meyers LPN - 01/03/2023 3:15 PM EDT Talked to patient and she is going to go to the MD to get her lab work on levels and will have themforward it to us for review also. * Telephone Encounter - Arlene Meyers LPN - 12/30/2022 11:49 AM EDT Placed call to patient to discuss provider direction about needing lab work done due to being on this medication. Message left on voicemail to return call. documented in this [facility]10-06-2023 Telephone encounter Note* Telephone Encounter - Arlene Meyers LPN - 12/30/2022 11:49 AM EDT Placed call to patient to discuss provider direction about needing lab work done due to being on this medication. Message left on voicemail to return call. [id number] Miscellaneous Notes* Telephone Encounter - Arlene Meyers LPN - 12/30/2022 11:49 AM EDT Placed call to patient to discuss provider direction about needing lab work done due to being on this medication. Message left on voicemail to return call. documented in this [facility]10-02-2023 Telephone encounter Note* Telephone Encounter - Sera Staton MA - 12/26/2022 10:29 AM EDT Recent Visits Date Type Provider Dept 11/14/22 Office Visit Domingo Fong, DO [facility] 10/03/22 Office Visit Domingo Fong, DO [facility] 04/25/22 Office Visit Domingo Fong, DO [facility] Showing recent visits within past 365 days and meeting all other requirements Future Appointments No visits were found meeting these conditions. Showing future appointments within next 90 days and meeting all other requirements Requested Prescriptions Pending Prescriptions Disp Refills citalopram (CeleXA) 10 MG tablet [Pharmacy Med Name: CITALOPRAM HBR 10 MG TABLET] 30 tablet 2 Sig: TAKE 1 TABLET BY MOUTH EVERY DAY NIGHTLY Verified pharmacy: yes Verified day(s) supplied: yes Verified refill(s) needed (previous prescription showing no refills in chart): Yes [id number] Miscellaneous Notes* Telephone Encounter - Sera Staton MA - 12/26/2022 10:29 AM EDT Recent Visits Date Type Provider Dept 11/14/22 Office Visit Domingo Fong, DO [facility] 10/03/22 Office Visit Domingo Fong, [facility] 04/25/22 Office Visit Domingo Fong, DO [facility] Showing recent visits within past 365 days and meeting all other requirements Future Appointments No visits were found meeting these conditions. Showing future appointments within next 90 days and meeting all other requirements Requested Prescriptions Pending Prescriptions Disp Refills citalopram (CeleXA) 10 MG tablet [Pharmacy Med Name: CITALOPRAM HBR 10 MG TABLET] 30 tablet 2 Sig: TAKE 1 TABLET BY MOUTH EVERY DAY NIGHTLY Verified pharmacy: yes Verified day(s) supplied: yes Verified refill(s) needed (previous prescription showing no refills in chart): Yes documented in this [facility]09-26-2023 Telephone encounter Note* Telephone Encounter - Ashley De La Rosa - 12/20/2022 7:30 AM EDT Referral pended for dx and doctor's signature [id number] Miscellaneous Notes* Telephone Encounter - Ashley De La Rosa - 12/20/2022 7:30 AM EDT Referral pended for dx and doctor's signature * Telephone Encounter - Lawrence Bey - 12/19/2022 11:14 AM EDT Pt called back in regards to this and reported that she would like to have referral sent to darlene at [facility] for an Upper GI issue of having a hard time swallowing * Telephone Encounter - Ashley De La Rosa - 12/06/2022 3:02 PM EDT Pt was referred to Dr Chaparro at [facility] on 11/30/22 and referral faxed on 12/02/22. Will send follow up letter to pt. * Telephone Encounter - Sofia Valladares MA - 12/06/2022 1:18 PM EDT Last OV:11/14/22 Scheduled:05/15/23 * Telephone Encounter - Bozena Nuno - 12/06/2022 1:07 PM EDT Name of caller: Adriane Contact phone number: [phone] Relationship to Patient: patient Provider: Dr Fong Practice: [facility] Chief Complaint/Reason for Call: Pt stated is requesting an order for an upper endoscopy. Per patient she has trouble swallowing at times and stated she spoke with [facility] this morning and they stated they could get her scheduled but they would need an order sent to them. Please adivse. Best time of day caller can be reached: any Patient advised that office/PCP has 24-48 business hours to return their call: No documented in this [facility]09-25-2023 Telephone encounter Note* Telephone Encounter - Lawrence Bey - 12/19/2022 11:14 AM EDT Pt called back in regards to this and reported that she would like to have referral sent to darlene at [facility] for an Upper GI issue of having a hard time swallowing [id number] Telephone encounter Note* Telephone Encounter - Lawrence Bey - 12/19/2022 11:13 AM EDT Ordering provider: heatl Date of last office visit: Visit date not found Date of next office visit: 05/15/2023 Updated/Validated preferred pharmacy: Yes Patient instructed to contact the pharmacy prior to picking up the medication: No (1) Medication name: anlodipine Medication dosage: 10 mg (Miligrams Monthly quantity needed: 90 How many day supply requestin days Medication route: oral (PO) Medication administration time(s): daily If taking medication PRN, reason for taking medication: N/A If this is a controlled substance do you receive this or any other controlled medication from any other doctor or facility: N/A Date of last refill (see medication tab): 10/03 (2) Medication name: enalapril Medication dosage: 10 mg (Miligrams Monthly quantity needed: 90 How many day supply requestin days Medication route: oral (PO) Medication administration time(s): daily If taking medication PRN, reason for taking medication: N/A If this is a controlled substance do you receive this or any other controlled medication from any other doctor or facility: N/A Date of last refill (see medication tab): 10/03 [id number] Miscellaneous Notes* Telephone Encounter - Lawrence Bey - 12/19/2022 11:13 AM EDT Ordering provider: hetal Date of last office visit: Visit date not found Date of next office visit: 05/15/2023 Updated/Validated preferred pharmacy: Yes Patient instructed to contact the pharmacy prior to picking up the medication: No (1) Medication name: anlodipine Medication dosage: 10 mg (Miligrams Monthly quantity needed: 90 How many day supply requestin days Medication route: oral (PO) Medication administration time(s): daily If taking medication PRN, reason for taking medication: N/A If this is a controlled substance do you receive this or any other controlled medication from any other doctor or facility: N/A Date of last refill (see medication tab): 10/03 (2) Medication name: enalapril Medication dosage: 10 mg (Miligrams Monthly quantity needed: 90 How many day supply requestin days Medication route: oral (PO) Medication administration time(s): daily If taking medication PRN, reason for taking medication: N/A If this is a controlled substance do you receive this or any other controlled medication from any other doctor or facility: N/A Date of last refill (see medication tab): 10/03 documented in this encounterSMagruder [id number] Telephone encounter Note* Telephone Encounter - Ashley De La Rosa - 12/06/2022 3:02 PM EDT Pt was referred to Dr Chaparro at [facility] on 11/30/22 and referral faxed on 12/02/22. Will send follow up letter to pt. [facility] [id number] Telephone encounter Note* Telephone Encounter - Sofia Valladares MA - 12/06/2022 1:18 PM EDT Last OV:11/14/22 Scheduled:05/15/23 [facility] [id number] Telephone encounter Note* Telephone Encounter - Bozena Nuno - 12/06/2022 1:07 PM EDT Name of caller: Adriane Contact phone number: [phone] Relationship to Patient: patient Provider: Dr Fong Practice: [facility] Chief Complaint/Reason for Call: Pt stated is requesting an order for an upper endoscopy. Per patient she has trouble swallowing at times and stated she spoke with [facility] this morning and they stated they could get her scheduled but they would need an order sent to them. Please adivse. Best time of day caller can be reached: any Patient advised that office/PCP has 24-48 business hours to return their call: No [facility] [id number] Telephone encounter Note* Telephone Encounter - Xena Ridley - 11/30/2022 9:22 AM EDT Name of caller: Adriane Contact phone number: [phone] Relationship to Patient: patient Provider: Dr. Fong Practice: [facility] Chief Complaint/Reason for Call: The patient is calling in stating she needs a new order for a colonoscopy to either [place] or [facility]. The patient states her insurance does not cover the colonoscopy at [facility]. Please advise. Best time of day caller can be reached: Any Patient advised that office/PCP has 24-48 business hours to return their call: No [facility] [id number] Miscellaneous Notes* Telephone Encounter - Xena Ridley - 11/30/2022 9:22 AM EDT Name of caller: Adriane Contact phone number: [phone] Relationship to Patient: patient Provider: Dr. Fong Practice: [facility] Chief Complaint/Reason for Call: The patient is calling in stating she needs a new order for a colonoscopy to either [place] or [facility]. The patient states her insurance does not cover the colonoscopy at [facility]. Please advise. Best time of day caller can be reached: Any Patient advised that office/PCP has 24-48 business hours to return their call: No documented in this [facility]09-05-2023 Telephone encounter Note* Telephone Encounter - Ashley De La Rosa - 11/29/2022 10:07 AM EDT Updated referral pended for doctor's signature [facility] [id number] Miscellaneous Notes* Telephone Encounter - Ashley De La Rosa - 11/29/2022 10:07 AM EDT Updated referral pended for doctor's signature * Telephone Encounter - Ashley De La Rosa - 11/29/2022 10:06 AM EDT ----- Message from Makenzie Hilliard MA sent at 11/29/2022 9:42 AM EDT ----- Patient says she was supposed to get a colonoscopy in [place] and says her insurance does not coverit there anymore that now she needs to go to [place] or [place]. documented in this [facility]09-05-2023 Telephone encounter Note* Telephone Encounter - Ashley De La Rosa - 11/29/2022 10:06 AM EDT ----- Message from Makenzie Hilliard MA sent at 11/29/2022 9:42 AM EDT ----- Patient says she was supposed to get a colonoscopy in [place] and says her insurance does not coverit there anymore that now she needs to go to [place] or [place]. [facility] [id number] Telephone encounter Note* Telephone Encounter - Ashley De La Rosa - 11/14/2022 5:13 PM EDT Orders pended for dx and doctor's signature [facility] [id number] Miscellaneous Notes* Telephone Encounter - Ashley Rj - 11/14/2022 5:13 PM EDT Orders pended for dx and doctor's signature documented in this encounterSMagruder [id number] History of Present illness Narrative* Domingo Denisha Fong, - 11/14/2022 11:30 AM EDT Images from the original note were not included. [facility] [address] [facility] [id number] Visit type: Established Patient Reason for Visit: Follow-up (6 month med check) Assessment / Plan: Checkup Adriane was seen today for follow-up. Diagnoses and all orders for this visit: Type 2 diabetes mellitus without complication, with long-term current use of insulin ([facility]) ([facility]) (Primary) Comments: Uncontrolled, continue metformin, increase Lantus to 60 units every afternoon and Trulicity to 4.5 mg weekly continue NovoLog sliding scale Mixed hypercholesterolemia and hypertriglyceridemia Comments: Stable, continue atorvastatin Essential hypertension Comments: Stable, continue Norvasc and enalapril. I do not think her cough is due to that med since she has been on for 10 years NSAID long-term use Comments: Stable, continue meloxicam Chest pain, unspecified type Comments: Recurrent, stress test Orders: - ECG 12 lead; Future - ECG 12 lead Chronic cough Comments: Nonspecific. Doubt due to ZEKE inhibitor. Check x-ray Orders: - XR chest 2 views; Future Other orders - insulin glargine (Lantus SoloStar) 100 UNIT/ML pen; Increase to 60 U q AM - dulaglutide (Trulicity) 4.5 MG/0.5ML solution pen-injector; Inject 4.5 mg under the skin 1 (one) time per week. Subjective: Patient ID: Adriane Herrera is a 61 y.o. female. HPI uncontrolled type II diabetic on insulin Presents for checkup and has a few concerns. Has intermittent dry cough for many months. She is concerned it might be the enalapril. However has been out of bed for 11 years. No fevers night sweats chest pain or shortness of breath. Glucose levels are high. Would like to change her insulin. Presently getting meds from MD. Glucose log is up and down. No overt hypoglycemia. Having some vague chest pain when she walks around at work. Not associated with jaw pain arm pain or diaphoresis or shortness of breath. No heartburn or dysphagia. Review of Systems no change in vision. No recent earache sore throat phlegm. No abdominal pain. Takes Mobic without difficulty. No heartburn or dysphagia. She did not have a follow-up phone call withGI to get her panendoscopy. No melena or blood. Bowels are regular. Mammograms up-to-date. No postmenopausal bleeding. No change in arthralgias. No Known Allergies Current Outpatient Medications on File Prior to Visit Medication Sig Dispense Refill Accu-Chek Guide test strip 1 EACH BY IN VITRO ROUTE DAILY NEEDED. E11.9 amLODIPine (Norvasc) 10 MG tablet Take 1 tablet (10 mg) by mouth daily. 90 tablet 0 atorvastatin (Lipitor) 40 MG tablet Take 1 tablet (40 mg) by mouth daily for 90 doses. 90 tablet 0 cholecalciferol (Vitamin D-3) 25 MCG (1000 UT) tablet TAKE THREE TABLETS BY MOUTH EVERY DAY citalopram (CeleXA) 10 MG tablet Take 1 tablet (10 mg) by mouth Nightly. 90 tablet 0 enalapril (Vasotec) 20 MG tablet One q am 90 tablet 0 insulin aspart (NovoLOG) 100 UNIT/ML pen If BS is 70-150 take 4 units, If 151- 200, take 8 units, [id number], take 12 units, over 250, take 14 units/day 10 mL 2 meloxicam (Mobic) 15 MG tablet Take 1 tablet (15 mg) by mouth daily. 90 tablet 0 metFORMIN (Glucophage) 1000 MG tablet Take 1 tablet (1,000 mg) by mouth in the morning and 1 tablet(1,000 mg) in the evening. Take with meals. 180 tablet 0 [DISCONTINUED] dulaglutide (Trulicity) 3 MG/0.5ML solution pen-injector Inject 3 mg under the skin 1 (one) time per week. 12 each 11 [DISCONTINUED] insulin glargine (Lantus SoloStar) 100 UNIT/ML pen Change to 40 units with BF and 54units with supper daily 24 each 3 No current facility-administered medications on file prior to visit. Patient Active Problem List Diagnosis NSAID long-term use Contracture of finger joint Mixed hypercholesterolemia and hypertriglyceridemia Diabetes mellitus (HCC) CTS (carpal tunnel syndrome) Essential hypertension Adjustment disorder with anxious mood Diabetic retinopathy (HCC) Patellofemoral arthritis of right knee Social History Tobacco Use Smoking status: Never Smokeless tobacco: Never Substance Use Topics Alcohol use: No Alcohol/week: 0.0 standard drinks of alcohol Past Surgical History: Procedure Laterality Date BREAST BIOPSY Left 1989 SECTION (HISTORICAL) x3 COLONOSCOPY 2011 Dr. Alvarez- negative- due 2021 ECTOPIC SURGERY Family History Problem Relation Name Age of Onset Alzheimer's disease Mother Sharlene 2011 Heart disease Mother Sharlene Afib - CHF at age 84 Diabetes type II Mother Sharlene Kidney disease Father CRF Diabetes Father age 64 Diabetes Sister Diabetes Sister Diabetes Sister Diabetes Sister No Known Problems Sister No Known Problems Sister Stroke Brother 70 ICH due to aneurysm, HTN, smoker, ETOH Diabetes type II Brother Pranay Diabetes Brother Lr insulin Other ([id number]) Brother murdered in [facility] Diabetes Maternal Grandfather in 80s and 90s Objective: BP 136/67 Pulse 79 Temp 36.3 C (97.3 F) (Temporal) Ht 5' 3.5 (1.613 m) Wt 143 lb (64.9 kg) SpO2 98% BMI 24.93 kg/m Physical Exam pleasant alert and oriented. Well-hydrated. Normal oropharynx. No neck masses JVD adenopathy thyroid lesions carotid bruits. Reflexes physiologic. Heart is rate without gallops murmurs or ectopy. Lungs are clear. Abdomen soft nontender without pain hepatosplenomegaly masses bruits or ascites. Femoral and pedal pulses are excellent. No motor or sensory loss of the legs or feet. EKG sinus rhythm without ischemia. documented in this [place] [id number] History of Present illness Narrative* Domingo Fong, DO - 10/03/2022 1:00 PM EDT Images from the original note were not included. [facility] [address] [facility] [address] Visit type: Established Patient Reason for Visit: Sinus Problem (Coughing, headache, stuffy nose) Assessment / Plan: Adriane was seen today for sinus problem. Diagnoses and all orders for this visit: Acute recurrent frontal sinusitis (Primary) Comments: New onset, Ceftin. Type 2 diabetes mellitus without complication, with long-term current use of insulin ([facility]) ([facility]) Comments: Uncontrolled, checkup soon refilled meds Other orders - amLODIPine (Norvasc) 10 MG tablet; Take 1 tablet (10 mg) by mouth daily. - atorvastatin (Lipitor) 40 MG tablet; Take 1 tablet (40 mg) by mouth daily for 90 doses. - citalopram (CeleXA) 10 MG tablet; Take 1 tablet (10 mg) by mouth Nightly. - enalapril (Vasotec) 20 MG tablet; One q am - meloxicam (Mobic) 15 MG tablet; Take 1 tablet (15 mg) by mouth daily. - dulaglutide (Trulicity) 3 MG/0.5ML solution pen-injector; Inject 3 mg under the skin 1 (one) timeper week. - insulin aspart (NovoLOG) 100 UNIT/ML pen; If BS is 70-150 take 4 units, If 151-200, take 8 units,if 201-250, take 12 units, over 250, take 14 units/day - insulin glargine (Lantus SoloStar) 100 UNIT/ML pen; Change to 40 units with BF and 54 units with supper daily - metFORMIN (Glucophage) 1000 MG tablet; Take 1 tablet (1,000 mg) by mouth in the morning and 1 tablet (1,000 mg) in the evening. Take with meals. - cefuroxime (Ceftin) 250 MG tablet; Take 1 tablet (250 mg) by mouth 2 times daily for 10 days. Subjective: Patient ID: Adriane Herrera is a 61 y.o. female. HPI uncontrolled type II diabetic non-smoker stable hypertension presents for concerns of facial pain thick postnasal drip and low-grade fever. Symptoms for about 4 days. No loss of smell or taste. No purulent headache or body aches. No substantial cough. No vomiting or diarrhea. Glucose levels notelevated. Review of Systems overdue for checkup. Gets work-up in lab per [facility]. Last A1c over 8 in June.She will make an appointment soon. No headache or confusion. Eating and voiding well. No dysuria. No Known Allergies Current Outpatient Medications on File Prior to Visit Medication Sig Dispense Refill Accu-Chek Guide test strip 1 EACH BY IN VITRO ROUTE DAILY NEEDED. E11.9 cholecalciferol (Vitamin D-3) 25 MCG (1000 UT) tablet TAKE THREE TABLETS BY MOUTH EVERY DAY [DISCONTINUED] amLODIPine (Norvasc) 10 MG tablet Take 1 tablet (10 mg) by mouth daily. 90 tablet 0 [DISCONTINUED] atorvastatin (Lipitor) 40 MG tablet Take 1 tablet (40 mg) by mouth daily for 90 doses. 90 tablet 0 [DISCONTINUED] citalopram (CeleXA) 10 MG tablet Take 1 tablet (10 mg) by mouth Nightly. 30 tablet 2 [DISCONTINUED] dulaglutide (Trulicity) 3 MG/0.5ML solution pen-injector Inject 3 mg under the skin 1 (one) time per week. 12 each 11 [DISCONTINUED] enalapril (Vasotec) 20 MG tablet One q am 90 tablet 0 [DISCONTINUED] insulin aspart (NovoLOG) 100 UNIT/ML pen If BS is 70-150 take 4 units, If 151-200, take 8 units, if 201-250, take 12 units, over 250, take 14 units/day 10 mL 2 [DISCONTINUED] insulin glargine (Lantus SoloStar) 100 UNIT/ML pen Change to 40 units with BF and 54units with supper daily 24 each 3 [DISCONTINUED] meloxicam (Mobic) 15 MG tablet Take 1 tablet (15 mg) by mouth in the morning. 30 tablet 2 [DISCONTINUED] metFORMIN (Glucophage) 1000 MG tablet Take 1 tablet (1,000 mg) by mouth in the morning and 1 tablet (1,000 mg) in the evening. Take with meals. 180 tablet 0 No current facility-administered medications on file prior to visit. Patient Active Problem List Diagnosis NSAID long-term use Contracture of finger joint Mixed hypercholesterolemia and hypertriglyceridemia Diabetes mellitus (HCC) CTS (carpal tunnel syndrome) Essential hypertension Adjustment disorder with anxious mood Diabetic retinopathy (HCC) Patellofemoral arthritis of right knee Social History Tobacco Use Smoking status: Never Smokeless tobacco: Never Substance Use Topics Alcohol use: No Alcohol/week: 0.0 standard drinks of alcohol Past Surgical History: Procedure Laterality Date BREAST BIOPSY Left 1989 SECTION (HISTORICAL) x3 COLONOSCOPY 2011 Dr. Alvarez- negative- due 2021 ECTOPIC SURGERY Family History Problem Relation Name Age of Onset Alzheimer's disease Mother Sharlene 2011 Heart disease Mother Sharlene Afib - CHF at age 84 Diabetes type II Mother Sharlene Kidney disease Father CRF Diabetes Father age 64 Diabetes Sister Diabetes Sister Diabetes Sister Diabetes Sister No Known Problems Sister No Known Problems Sister Stroke Brother 70 ICH due to aneurysm, HTN, smoker, ETOH Diabetes type II Brother Pranay Diabetes Brother Lr insulin Other ([id number]) Brother murdered in [facility] Diabetes Maternal Grandfather in 80s and 90s Objective: BP 130/67 Pulse 68 Temp 36.3 C (97.3 F) (Temporal) Ht 5' 3.5 (1.613 m) Wt 142 lb 12.8 oz (64.8 kg) SpO2 97% BMI 24.90 kg/m Physical Exam pleasant cooperative. Well-hydrated. Cunningham postnasal drip. No adenopathy. Neck supple.Normal eardrums. No skin changes. Heart is regular without murmurs or ectopy. Lungs are clear. No rales wheezes or rhonchi. Abdomen soft nontender without pain hepatosplenomegaly or masses. Extremities are pink without edema. documented in this [facility]07-10-2023 Telephone encounter Note* Telephone Encounter - Lindsey Garza RN - 10/03/2022 9:34 AM EDT S: Patient spoke with [facility] nurse regarding Sinus infection B: Onset of symptoms/concern x 3 days A: Pt having sinus pain with post-nasal drip triggering cough but states also coughing without post-nasal drip. Pt reports sinus pain of 8/10. Pt reports fever other day because forehead was hot on Monday but denies feeling feverish now. Pt did not check temperature. Pt taking Robitussin and other OTC cold medications. Pt speaking in full sentences. 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 Denies GI symptoms. Denies known exposure to COVID. Has not tested self for COVID. R: Patient understands care advice for sinus congestion. Attempted to POD schedule. Pt requesting just Petrilla stating she needs her medications refilled. Pt advised to take home COVID test and callback with results. Pt scheduled today with at 1 pm. No further needs at this time. Patient instructed to call back with new or worsening symptoms. Reason for Disposition SEVERE sinus pain Protocols used: Sinus Pain or [id number] [id number] Miscellaneous Notes* Telephone Encounter - Lindsey Garza RN - 10/03/2022 9:34 AM EDT S: Patient spoke with [facility] nurse regarding Sinus infection B: Onset of symptoms/concern x 3 days A: Pt having sinus pain with post-nasal drip triggering cough but states also coughing without post-nasal drip. Pt reports sinus pain of 8/10. Pt reports fever other day because forehead was hot on Monday but denies feeling feverish now. Pt did not check temperature. Pt taking Robitussin and other OTC cold medications. Pt speaking in full sentences. 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 Denies GI symptoms. Denies known exposure to COVID. Has not tested self for COVID. R: Patient understands care advice for sinus congestion. Attempted to POD schedule. Pt requesting just Petrilla stating she needs her medications refilled. Pt advised to take home COVID test and callback with results. Pt scheduled today with at 1 pm. No further needs at this time. Patient instructed to call back with new or worsening symptoms. Reason for Disposition SEVERE sinus pain Protocols used: Sinus Pain or [id number] documented in this encounterSMagruder [id number] Telephone encounter Note* Telephone Encounter - Makenzie Hilliard MA - 09/13/2022 10:14 AM EDT Pt was advised to keep a log of her blood sugars and bring to her apt 09/19/22. [facility] [id number] Miscellaneous Notes* Telephone Encounter - Makenzie Hilliard MA - 09/13/2022 10:14 AM EDT Pt was advised to keep a log of her blood sugars and bring to her apt 09/19/22. * Telephone Encounter - Makenzie Hilliard MA - 09/13/2022 6:51 AM EDT Pt scheduled 09/19/22 * Telephone Encounter - Domingo Fong DO - 09/12/2022 5:40 PM EDT Refill completed. Patient due for checkup in October. Of note her A1c in June was suboptimal at 8.2. Needs to call with a log of glucose levels. * Telephone Encounter - Makenzie Hilliard MA - 09/12/2022 1:19 PM EDT Rx loaded * Telephone Encounter - Shirley Paris - 09/12/2022 11:46 AM EDT Medication name: metFORMIN (Glucophage) 1000 MG tablet Medication dosage: 1000 mg (Miligrams Monthly quantity needed: 60 How many day supply requestin days Medication route: oral (PO) Medication administration time(s): Take 1 tablet by mouth 2 times daily (with meals) If taking medication PRN, reason for taking medication: N/A If this is a controlled substance do you receive this or any other controlled medication from any other doctor or facility: No Ordering provider: Dr. Fong Date of last office visit: 04/25/2022 Date of next office visit: 09/19/2022 Date of last refill: (see medication tab): 09/06/2021 Updated/Validated preferred pharmacy: Yes [facility]/pharmacy #[id number] - [place], [place] - [address] [facility] [address] [facility] [address] Patient instructed to contact the pharmacy prior to picking up the medication: Yes documented in this encounterSMagruder [id number] Telephone encounter Note* Telephone Encounter - Makenzie Hilliard MA - 09/13/2022 6:51 AM EDT Pt scheduled 09/19/22 [facility] [id number] Telephone encounter Note* Telephone Encounter - Domingo Fong DO - 09/12/2022 5:40 PM EDT Refill completed. Patient due for checkup in October. Of note her A1c in June was suboptimal at 8.2. Needs to call with a log of glucose levels. [facility] [id number] Telephone encounter Note* Telephone Encounter - Makenzie Hilliard MA - 09/12/2022 1:19 PM EDT Rx loaded [facility] [id number] Telephone encounter Note* Telephone Encounter - Shirley Paris - 09/12/2022 11:46 AM EDT Medication name: metFORMIN (Glucophage) 1000 MG tablet Medication dosage: 1000 mg (Miligrams Monthly quantity needed: 60 How many day supply requestin days Medication route: oral (PO) Medication administration time(s): Take 1 tablet by mouth 2 times daily (with meals) If taking medication PRN, reason for taking medication: N/A If this is a controlled substance do you receive this or any other controlled medication from any other doctor or facility: No Ordering provider: Dr. Fong Date of last office visit: 04/25/2022 Date of next office visit: 09/19/2022 Date of last refill: (see medication tab): 09/06/2021 Updated/Validated preferred pharmacy: Yes [id number] - [place], [place] - [address] [facility] [address] [facility] [address] Patient instructed to contact the pharmacy prior to picking up the medication: Yes [facility] [id number] Telephone encounter Note* Telephone Encounter - Arlene Meyers LPN - 06/29/2022 11:05 AM EDT Rx loaded Last ov 04/25/22 Next ov 10/31/22 [facility] [id number] Miscellaneous Notes* Telephone Encounter - Arlene Meyers LPN - 06/29/2022 11:05 AM EDT Rx loaded Last ov 04/25/22 Next ov 10/31/22 * Telephone Encounter - Timothy Schilling - 06/29/2022 10:35 AM EDT Ordering provider: Dr fong Date of last office visit: 04.25.2022 Date of next office visit: 10.31.2022 Updated/Validated preferred pharmacy: Yes Patient instructed to contact the pharmacy prior to picking up the medication: Yes (1) Medication name: insulin aspart (NOVOLOG FLEXPEN) Medication dosage: 100 units/ml Monthly quantity needed: 1 box per month How many day supply requestin days Medication route: subcutaneous injection (SQ/SC) Medication administration time(s): 3 times a day (TID) If taking medication PRN, reason for taking medication: N/A If this is a controlled substance do you receive this or any other controlled medication from any other doctor or facility: N/A Date of last refill (see medication tab): 03.01.2021 (2) Medication name: atorvastatin (Lipitor) Medication dosage: 40 mg (Miligrams Monthly quantity needed: 30 How many day supply requestin days Medication route: oral (PO) Medication administration time(s): bedtime (HS) If taking medication PRN, reason for taking medication: N/A If this is a controlled substance do you receive this or any other controlled medication from any other doctor or facility: N/A Date of last refill (see medication tab): 04.25.2022 (3) Medication name: enalapril (Vasotec) Medication dosage: 20 mg (Miligrams Monthly quantity needed: 30 How many day supply requestin days Medication route: oral (PO) Medication administration time(s): daily If taking medication PRN, reason for taking medication: N/A If this is a controlled substance do you receive this or any other controlled medication from any other doctor or facility: N/A Date of last refill (see medication tab): 01.31.2022 (4) Medication name: amLODIPine (Norvasc) Medication dosage: 10 mg (Miligrams Monthly quantity needed: 30 How many day supply requestin days Medication route: oral (PO) Medication administration time(s): daily If taking medication PRN, reason for taking medication: N/A If this is a controlled substance do you receive this or any other controlled medication from any other doctor or facility: N/A Date of last refill (see medication tab): 09.06.2021 documented in this [facility]04-05-2023 Telephone encounter Note* Telephone Encounter - Timothy Schilling - 06/29/2022 10:35 AM EDT Ordering provider: Dr fong Date of last office visit: 04.25.2022 Date of next office visit: 10.31.2022 Updated/Validated preferred pharmacy: Yes Patient instructed to contact the pharmacy prior to picking up the medication: Yes (1) Medication name: insulin aspart (NOVOLOG FLEXPEN) Medication dosage: 100 units/ml Monthly quantity needed: 1 box per month How many day supply requestin days Medication route: subcutaneous injection (SQ/SC) Medication administration time(s): 3 times a day (TID) If taking medication PRN, reason for taking medication: N/A If this is a controlled substance do you receive this or any other controlled medication from any other doctor or facility: N/A Date of last refill (see medication tab): 03.01.2021 (2) Medication name: atorvastatin (Lipitor) Medication dosage: 40 mg (Miligrams Monthly quantity needed: 30 How many day supply requestin days Medication route: oral (PO) Medication administration time(s): bedtime (HS) If taking medication PRN, reason for taking medication: N/A If this is a controlled substance do you receive this or any other controlled medication from any other doctor or facility: N/A Date of last refill (see medication tab): 04.25.2022 (3) Medication name: enalapril (Vasotec) Medication dosage: 20 mg (Miligrams Monthly quantity needed: 30 How many day supply requestin days Medication route: oral (PO) Medication administration time(s): daily If taking medication PRN, reason for taking medication: N/A If this is a controlled substance do you receive this or any other controlled medication from any other doctor or facility: N/A Date of last refill (see medication tab): 01.31.2022 (4) Medication name: amLODIPine (Norvasc) Medication dosage: 10 mg (Miligrams Monthly quantity needed: 30 How many day supply requestin days Medication route: oral (PO) Medication administration time(s): daily If taking medication PRN, reason for taking medication: N/A If this is a controlled substance do you receive this or any other controlled medication from any other doctor or facility: N/A Date of last refill (see medication tab): 09.06.2021 [facility] [id number] NoteHNO ID: [id number] Author: Carey Gutierres PA-C Service: ? Author Type: Physician Human Resource Officer Type: Progress Notes Filed: 05/30/2022 4:44 PM Note Text: HISTORY AND PHYSICAL Adriane Herrera 1960 REFERRING PHYSICIAN: Domingo Fong DO CHIEF COMPLAINT: Consult (colonoscopy) HPI: The patient is a 61 year old female referred for endoscopy. Adriane notes no colon complaints. Patient denies any change in bowel habits, blood in stools, black tarry stools or abdominal pain. Denies family history of colon issues. The patient NOTES acid reflux and weight change. Adriane has undergone prior endoscopy. Last colonoscopy 05/30/[address] Alvarez. Tortuous colon noted. Patient denies any recall or discomfort with that procedure. PAST MEDICAL HISTORY Diagnosis Date Diabetic retinopathy (HCC) Essential hypertension ANIBAL (generalized anxiety disorder) Hypercholesteremia Type 2 diabetes mellitus (HCC) PAST SURGICAL HISTORY Procedure Laterality Date DELIVERY ONLY , low cervicalX 3 COLONOSCOPY FLX DX W/COLLJ SPEC WHEN PFRMD 05/30/2011 Colonoscopy LIG/TRNSXJ FLP TUBE ABDL/VAG APPR UNI/BI SALPINGECTOMY FOR AN ECTOPIC Current Outpatient Medications Medication Sig amLODIPine (NORVASC) 10 mg tablet Take 1 tablet by mouth once daily. atorvastatin (LIPITOR) 40 mg tablet Take 40 mg by mouth. cholecalciferol (VITAMIN D3) 1,000 unit tab tablet Take 3 tablets by mouth once daily. citalopram hydrobromide (CELEXA) 10 mg tablet Take 10 mg by mouth. dulaglutide (TRULICITY) 3 mg/0.5 mL pen injector Inject 3 mg subcutaneously. meloxicam (MOBIC) 15 mg tablet Take 15 mg by mouth. INSULIN ASPART (NOVOLOG SUBCUTANEOUS) Inject subcutaneously. ENALAPRIL MALEATE 10 MG TAB ONE TAB DAILY GLUCOPHAGE 500 MG TAB Take by mouth. metformin LANTUS 100 UNIT/ML SUB-Q Use as directed. ZETIA 10 MG TAB Take one(1) tablet daily. No current facility-administered medications for this visit. ALLERGIES: Patient has no known allergies. PERSONAL HISTORY: Social History Tobacco Use Smoking status: Never Smokeless tobacco: Never Substance Use Topics Alcohol use: No Drug use: No FAMILY HISTORY: FAMILY HISTORY Problem Relation Age of Onset Diabetes Mother Hypertension Mother other (Brain Aneurysm [Other]) Mother Memory loss Alzheimer's Disease Mother Heart disease Mother Diabetes Father Kidney Disease Father Diabetes Sister Diabetes Sister Diabetes Sister Cancer Sister bladder cancer other (other) Brother Cancer Maternal Grandfather REVIEW OF SYMPTOMS: The review of systems data was entered by the nurse and reviewed by me Nursing Notes: Ivette Schilling LPN 05/23/2022 9:41 AM Signed REVIEW OF SYSTEMS: General: The patient denies fatigue, denies weight loss, denies weight gain, denies feeling hot, and denies feelings of cold. Eyes: The patient denies glaucoma, denies eye injury/surgery, wears glasses or contacts. Ear/Nose/Throat: The patient denies allergies, denies hayfever, denies ear infections, and denies bloody noses. Cardiovascular: The patient denies chest pain, denies heart disease, denies high blood pressure,denies cardiac stent, denies prior heart attack, denies irregular heart beat, denies high cholesterol, denies poor circulation, denies heart failure, other cardiac issues, denies claudication, denies cold feet, denies peripheral arterial stent. Respiratory: The patient denies tuberculosis, denies pneumonia, denies frequent cough, denies pulmonary embolism, denies shortness of breath, and denies coughing up blood. Gastrointestinal: The patient denies difficulty swallowing, NOTES acid reflux, denies ulcers, denies vomiting, denies jaundice/hepatitis, denies gallbladder problems, denies black or tarry stools, denies hemorrhoids, denies bleeding from rectum, denies diverticulitis, denies constipation, denies diarrhea, denies loss of stool control, and denies hernias. Kidney/Bladder: The patient denies kidney stones, denies urine infections, and denies bloody urine. Skin: The patient denies a history of skin cancer, denies bleeding/changing moles, and denies a history of skin rash. Neurologic: The patient denies a history of epilepsy/convulsions, denies headaches, denies head/spinal injuries, and denies stroke/TIA. Psychiatric: The patient denies psychiatric medications, denies depression, and denies voices, denies substance abuse. Endocrine: The patient denies thyroid disorders, NOTES diabetes, and denies hormonal problems. Hematologic: The patient denies a history of bruising, denies bleeding, and denies anemia, denies blood clots. Infections: The patient denies a history of measles and mumps, denies rheumatic fever, and denies sexually transmitted diseases. Musculoskeletal: The patient denies back pain/injury, denies back problems, denies sciatica, denies knee/foot trouble, denies arthritis, or denies gout. When was patien (more content not included)...[facility] 04-26-2022 Telephone encounter Note* Telephone Encounter - [facility] - 04/26/2022 3:56 PM EST Referral for Dr Reese is pended for doctor's signature [id number] Miscellaneous Notes* Telephone Encounter - [facility] - 04/26/2022 3:56 PM EST Referral for Dr Reese is pended for doctor's signature * Telephone Encounter - [facility] - 04/25/2022 5:42 PM EST There are no Gastros at [facility]. There is Yue Pitts and [place]. Dr Chaparro is at [facility] documented in this encounterSMagruder [id number] Telephone encounter Note* Telephone Encounter - [facility] - 04/25/2022 5:42 PM EST There are no Gastros at [facility]. There is Yue Pitts and [place]. Dr Chaparro is at [id number] History of Present illness Narrative* Domingo Fong DO - 04/25/2022 2:00 PM EST Images from the original note were not included. [facility] [address] [facility] [id number] Visit type: Established Patient Reason for Visit: Follow-up (Check up ) Subjective: Patient ID: Adriane Herrera is a 61 y.o. female. HPI hypertensive diabetic with lipid management. Overall feeling well. Apparently is getting some lab work through the [facility] clinic. Recent Cologuard exam negative. Not aware of A1c results. States her glucose levels are in the 120 range. Blood pressure well at home. She has questions about increasingTrulicity. However she would like to undergo a colonoscopy just for preventative reasons. Review of Systems denies change in vision. Ophthalmologic exam up-to-date. Vaccinations up-to-date.Denies recent earache sore throat or cough. Denies exertional chest pain shortness of breath cough PND orthopnea claudication or edema. No heartburn or dysphagia. No melena or blood. Bowels are regular. Mammogram up-to-date. No dysuria or hematuria. Rare arthralgia. Celexa does help her generalizedanxiety mostly due to work demands No Known Allergies Current Outpatient Medications on File Prior to Visit Medication Sig Dispense Refill amLODIPine (Norvasc) 10 MG tablet Take 1 tablet by mouth daily. cholecalciferol (Vitamin D-3) 25 MCG (1000 UT) tablet TAKE THREE TABLETS BY MOUTH EVERY DAY citalopram (CeleXA) 10 MG tablet Take 1 tablet (10 mg) by mouth Nightly. 30 tablet 2 enalapril (Vasotec) 20 MG tablet One q am 30 tablet 2 insulin aspart (NovoLOG) 100 UNIT/ML pen If BS is 70-150 take 4 units, If 151- 200, take 8 units, [id number], take 12 units, over 250, take 14 units/day meloxicam (Mobic) 15 MG tablet Take 1 tablet (15 mg) by mouth in the morning. 30 tablet 2 metFORMIN (Glucophage) 1000 MG tablet Take 1,000 mg by mouth. [DISCONTINUED] atorvastatin (Lipitor) 40 MG tablet Take 40 mg by mouth. [DISCONTINUED] dulaglutide (Trulicity) 1.5 MG/0.5ML solution pen-injector Inject 1.5 mg under the skin. [DISCONTINUED] insulin glargine (Lantus SoloStar) 100 UNIT/ML pen Change to 54 units with BF and 26units with supper daily 24 each 3 No current facility-administered medications on file prior to visit. Patient Active Problem List Diagnosis NSAID long-term use Contracture of finger joint Mixed hypercholesterolemia and hypertriglyceridemia Diabetes mellitus (HCC) CTS (carpal tunnel syndrome) Essential hypertension Adjustment disorder with anxious mood Diabetic retinopathy (CMS/HCC) (HCC) Patellofemoral arthritis of right knee Social History Tobacco Use Smoking status: Never Smokeless tobacco: Never Substance Use Topics Alcohol use: No Alcohol/week: 0.0 standard drinks Past Surgical History: Procedure Laterality Date BREAST BIOPSY Left 1989 SECTION (HISTORICAL) x3 COLONOSCOPY 2011 Dr. Alvarez- negative- due 2021 ECTOPIC SURGERY Family History Problem Relation Name Age of Onset Alzheimer's disease Mother Sharlene 2011 Heart disease Mother Sharlene Afib - CHF at age 84 Diabetes type II Mother Sharlene Kidney disease Father CRF Diabetes Father age 64 Diabetes Sister Diabetes Sister Diabetes Sister Diabetes Sister No Known Problems Sister No Known Problems Sister Stroke Brother 70 ICH due to aneurysm, HTN, smoker, ETOH Diabetes type II Brother Pranay Diabetes Brother Lr insulin Other ([id number]) Brother murdered in [facility] Diabetes Maternal Grandfather in 80s and 90s Objective: BP 121/65 (BP Location: Right arm, Patient Position: Sitting, BP Cuff Size: Large adult) Pulse 82 Temp 36.3 C (97.3 F) (Temporal) Ht 5' 3.5 (1.613 m) Wt 147 lb (66.7 kg) SpO2 98% BMI 25.63 kg/m Physical Exam The physical exam is generally normal. Patient appears well, alert and oriented x 3, pleasant, cooperative. Vitals are as noted. No carotid bruits. Neck supple, no abnormal adenopathy, thyroid lesions or masses. Ears, nose and throat are normal without acute findings. Lungs are clear to auscultation. Heart is regular, without murmurs, gallops or ectopy. Abdomen is soft, non tender, without masses, hepatosplenomegaly, or bruits. Normal BS evident. Extremities are normal without edema. Peripheral pulses are fair. No worrisome skin lesions. Screening neurological exam is normal without focal deficits. No foot ulcers. Capillary refill is excellent Assessment / Plan: Adriane was seen today for follow-up. Diagnoses and all orders for this visit: Type 2 diabetes mellitus without complication, with long-term current use of insulin (CMS/HCC) ([facility]) (Primary) Comments: Stable, increased Trulicity to 3 mg weekly. Continue insulin and metformin Mixed hypercholesterolemia and hypertriglyceridemia Comments: Stable, continue Lipitor Essential hypertension Comments: Stable, continue amlodipine and enalapril Colon cancer screening - Ambulatory referral to Gastroenterology; Future ANIBAL (generalized anxiety disorder) Comments: Stable, continue Celexa NSAID long-term use Comments: Stable, continue Mobic with GI and renal precautions discussed Other orders - Diabetes Foot Exam - Discontinue: insulin glargine (Lantus SoloStar) 100 UNIT/ML pen; Change to 40 units with BF and 54 units with supper daily - atorvastatin (Lipitor) 40 MG tablet; Take 1 tablet (40 mg) by mouth daily for 90 doses. - insulin glargine (Lantus SoloStar) 100 UNIT/ML pen; Change to 40 units with BF and 54 units with supper daily - dulaglutide (Trulicity) 3 MG/0.5ML solution pen-injector; Inject 3 mg under the skin 1 (one) timeper week. [facility] Acute recurrent frontal sinusitis- Primary Type 2 diabetes mellitus without complication, with long-term current use of insulin (CMS/HCC) ([facility]) [facility] Diagnosis Type 2 diabetes mellitus without complication, with long-term current use of insulin (CMS/HCC) ([facility])- Primary Mixed hypercholesterolemia and hypertriglyceridemia Mixed hyperlipidemia Essential hypertension Unspecified essential hypertension NSAID long-term use Encounter for long-term (current) use of non-steroidal anti-inflammatories Chest pain, unspecified type Chronic cough Cough [facility]* Diagnosis NSAID long-term use- Primary Encounter for long-term (current) use of non-steroidal anti-inflammatories Colon cancer screening Special screening for malignant neoplasms, colon Chest pain, unspecified type [facility]* Diagnosis Colon cancer screening Special screening for malignant neoplasms, colon [facility]* Diagnosis Dysphagia, unspecified type- Primary documented in this encounter [facility] note* Diagnosis Dysphagia, unspecified type- Primary [facility]* Diagnosis Type 2 diabetes mellitus without complication, with long-term current use of insulin (CMS/HCC) ([facility])- Primary Mixed hypercholesterolemia and hypertriglyceridemia Mixed hyperlipidemia Essential hypertension Unspecified essential hypertension NSAID long-term use Encounter for long-term (current) use of non-steroidal anti-inflammatories Encounter for monitoring NSAID therapy Right-sided chest pain Dysphagia, unspecified type Breast cancer screening by mammogram documented in this encounter [facility] note* Diagnosis Type 2 diabetes mellitus without complication, with long-term current use of insulin (CMS/HCC) ([facility])- Primary Mixed hypercholesterolemia and hypertriglyceridemia Mixed hyperlipidemia Essential hypertension Unspecified essential hypertension [facility]* Diagnosis Type 2 diabetes mellitus without complication, with long-term current use of insulin (CMS/HCC) ([facility])- Primary documented in this encounter [facility] note* Diagnosis NSAID long-term use- Primary Encounter for long-term (current) use of non-steroidal anti-inflammatories Colon cancer screening Special screening for malignant neoplasms, colon Chest pain, unspecified type documented in this encounter [facility] note* Diagnosis Dysphagia, unspecified type- Primary Type 2 diabetes mellitus without complication, with long-term current use of insulin (CMS/HCC) ([facility]) documented in this encounter [facility] note* Diagnosis Dysphagia, unspecified type- Primary Type 2 diabetes mellitus without complication, with long-term current use of insulin (CMS/HCC) ([facility]) documented in this encounter [facility] note* Diagnosis Type 2 diabetes mellitus without complication, with long-term current use of insulin (CMS/HCC) ([facility])- Primary Dysphagia, unspecified type [facility] this [facility]* Diagnosis Type 2 diabetes mellitus without complication, with long-term current use of insulin (CMS/HCC) (HCC)- Primary Essential hypertension Unspecified essential hypertension Mixed hypercholesterolemia and hypertriglyceridemia Mixed hyperlipidemia Diabetic retinopathy associated with type 2 diabetes mellitus, macular edema presence unspecified, unspecified laterality, unspecified retinopathy severity ([facility]) Encounter for monitoring NSAID therapy Dysphagia, unspecified type [facility]* Diagnosis Colon cancer screening- Primary Special screening for malignant neoplasms, colon [facility] Diagnosis Encounter for screening mammogram for malignant neoplasm of breast- Primary Encounter for screening mammogram for malignant neoplasm of breast [facility]* Diagnosis Type 2 diabetes mellitus without complication, with long-term current use of insulin (CMS/HCC) (HCC)- Primary Mixed hypercholesterolemia and hypertriglyceridemia Mixed hyperlipidemia Essential hypertension Unspecified essential hypertension Colon cancer screening Special screening for malignant neoplasms, colon ANIBAL (generalized anxiety disorder) Generalized anxiety disorder NSAID long-term use Encounter for long-term (current) use of non-steroidal anti-inflammatories [facility]* Diagnosis Other chest pain- Primary Mixed hypercholesterolemia and hypertriglyceridemia Mixed hyperlipidemia Diabetic retinopathy associated with type 2 diabetes mellitus, macular edema presence unspecified, unspecified laterality, unspecified retinopathy severity (HCC) Breast cancer screening by mammogram Essential hypertension Unspecified essential hypertension Hypertrophic toenail [facility]* Diagnosis Other chest pain- Primary Essential hypertension Unspecified essential hypertension Diabetic retinopathy associated with type 2 diabetes mellitus, macular edema presence unspecified, unspecified laterality, unspecified retinopathy severity (HCC) [facility]* Diagnosis Other chest pain- Primary Essential hypertension Unspecified essential hypertension Diabetic retinopathy associated with type 2 diabetes mellitus, macular edema presence unspecified, unspecified laterality, unspecified retinopathy severity (HCC) Hypertrophic toenail [facility]* Diagnosis Other chest pain- Primary Essential hypertension Unspecified essential hypertension Type 2 diabetes mellitus without complication, with long-term current use of insulin (HCC) [facility]* Diagnosis Encounter for subsequent annual wellness visit (AWV) in Medicare patient- Primary Type 2 diabetes mellitus without complication, with long-term current use of insulin (HCC) Mixed hypercholesterolemia and hypertriglyceridemia Mixed hyperlipidemia Osteopenia, unspecified location NSAID long-term use Encounter for long-term (current) use of non-steroidal anti-inflammatories Breast cancer screening by mammogram Essential hypertension Unspecified essential hypertension Routine general medical examination at health care facility Routine general medical examination at a health care facility [facility] Memory[facility]istroReason for referral (narrative)* Consultation (Routine) - Pending Review Specialty Diagnoses / Procedures Referred By Renea lazar Referred To Contact General Surgery Diagnoses Colon cancer screening Procedures GA OFFICE/OUTPATIENT [facility] 60-74 MINUTES Domingo Fong DO [address] [place] [address] Pedro Reese [address] [place] [address] Referral ID Status Reason Start Date Expiration Date Visits Requested Visits Authorized [id number] Pending Review Specialty Services Required 11/15/2022 11/15/2023 1 1 * (Routine) - Incomplete Specialty Diagnoses / Procedures Referred By Contac t Referred To Contact Diagnoses Chest pain, unspecified type Procedures Nuclear stress test with myocardial perfusion Domingo Fong DO [address] [place] [address] Referral ID Status Reason Start Date Expiration Date V isits Requested Visits Authorized [id number] Incomplete 11/15/2022 05/14/2023 1 1 [facility] Consultation (Routine) - Pending Review Specialty Diagnoses / Procedures Referred By Contac t Referred To Contact Gastroenterology Diagnoses Encounter for screening for malignant neoplasm of colon Procedures GA OFFICE/OUTPATIENT [facility] 60-74 MINUTES Balwinder Del Valle PA-C [address] [place] [address] [facility] [address] [place] [address] Referral ID Status Reason Start Date Expiration Date Visits Requested Visits Authorized [id number] Pending Review Specialty Services Required 11/29/2022 11/29/2023 1 1 [facility] Consultation (Routine) - Pending Review Specialty Diagnoses / Procedures Referred By Contac t Referred To Contact General Surgery Diagnoses Dysphagia, unspecified type Procedures GA OFFICE/OUTPATIENT [facility] 60-74 MINUTES Domingo Fong DO [address] [place] [address] Eyal [address] [facility] [address] [place] [address] Referral ID Status Reason Start Date Expiration Date Visits Requested Visits Authorized [id number] Pending Review Specialty Services Required 12/20/2022 12/20/2023 1 1 [facility] Consultation (Routine) - Pending Review Specialty Diagnoses / Procedures Referred By Renea t Referred To Contact Gastroenterology Diagnoses Dysphagia, unspecified type Procedures GA OFFICE/OUTPATIENT NEW [facility]IGH MDM 60 MINUTES Domingo Fong DO [address] [place] [address] [address] [facility] [address] [place] [address] Referral ID Status Reason Start Date Expiration Date Visits Requested Visits Authorized [id number] Pending Review Specialty Services Required 06/12/2023 06/11/2024 1 1 [facility] ([facility])* Consultation (Routine) - Pending Review Specialty Diagnoses / Procedures Referred By Renea t Referred To Contact Endocrinology Diagnoses Type 2 diabetes mellitus without complication, with long-term current use of insulin (CMS/HCC) (HCC) Procedures GA OFFICE/OUTPATIENT NEW [facility] MDM 60 MINUTES Domingo Fong DO [address] [place] [address] Shawn Keita MD [address] [place] [address] Referral ID Status Reason Start Date Expiration Date Visits Requested Visits Authorized [id number] Pending Review Specialty Services Required 07/11/2023 07/10/2024 1 1 [facility] for referral (narrative)* Consultation (Routine) - Canceled Specialty Diagnoses / Procedures Referred By Contac t Referred To Contact General Surgery Diagnoses Colon cancer screening Procedures GA OFFICE/OUTPATIENT NEW [facility] MDM 60-74 MINUTES Domingo Fong, DO [address] [place] [address] Pedro Reese [address] [place] [address] Referral ID Status Reason Start Date Expiration Date Visits Requested Visits Authorized [id number] Canceled Specialty Services Required 11/15/2022 11/15/2023 1 1 [facility] for referral (narrative)* Consultation (Routine) - Pending Review Specialty Diagnoses / Procedures Referred By Contac t Referred To Contact Endocrinology Diagnoses Type 2 diabetes mellitus without complication, with long-term current use of insulin (CMS/HCC) (HCC) Procedures GA OFFICE/OUTPATIENT NEW HIGH MDM 60 MINUTES Domingo Fong, DO [address] [place] [address] Referral ID Status Reason Start Date Expiration Date Visits Requested Visits Authorized [id number] Pending Review Specialty Services Required 4 01/07/2025 1 1 * Consultation (Routine) - Pending Review Specialty Diagnoses / Procedures Referred By Contac t Referred To Contact General Surgery Diagnoses Dysphagia, unspecified type Procedures GA OFFICE/OUTPATIENT NEW [facility] MDM 60 MINUTES Domingo Fong, DO [address] [place] [address] Eyal Patton [address] [place] [address] Referral ID Status Reason Start Date Expiration Date Visits Requested Visits Authorized [id number] Pending Review Specialty Services Required 01/07/2025 1 1 [facility])* Consultation (Routine) - Pending Review Specialty Diagnoses / Procedures Referred By Contac t Referred To Contact General Surgery Diagnoses Colon cancer screening Procedures GA OFFICE/OUTPATIENT [facility] 60-74 MINUTES Domingo Fong, DO [address] [place] [address] Pedro Reese [address] [place] [address] Referral ID Status Reason Start Date Expiration Date Visits Requested Visits Authorized [id number] Pending Review Specialty Services Required 04/26/2022 04/26/2023 1 1 [facility])* Consultation (Routine) - Pending Review Specialty Diagnoses / Procedures Referred By Contac t Referred To Contact Gastroenterology Diagnoses Colon cancer screening Procedures GA OFFICE/OUTPATIENT [facility] 60-74 MINUTES Domingo Fong, DO [address] [place] [address] Referral ID Status Reason Start Date Expiration Date Visits Requested Visits Authorized [id number] Pending Review Specialty Services Required 04/25/2022 04/25/2023 1 1 [facility] for [facility] (narrative)No reason for referral information availableWPaulding County Hospital Work Phone: Summary Purpose Family History No Family History Records Found Relationship Condition Age at Onset Recorded Date/T ramone father Diabetes mellitus Unknown mother Hypertension Unknown Advance Directives No Advanced Directives Records FoundNo Advanced Directives Records FoundNo Advanced Directives Records FoundNo Advanced Directives Records FoundNo Advanced Directives Records Found Chief Complaint and Reason for Visit Chief Complaint Admit Date Diabetes April 01, 2024 11 :05am E-ORDER May 20, 2024 11:52am 8 Wk FU May 27, 2024 1:04 pm POST AMILCAR June 06, 2024 4:2 2pm Reason for Visit Admit Date Diabetes April 01, 2024 11 :05am Hypertension April 01, 2024 11 :05am Post-menopausal April 01, 2024 11 :05am Vitamin D deficiency April 01, 2024 1 1:05am Microalbuminuria May 27, 2024 1:04 pm Diabetes May 27, 2024 1:04 pm High cholesterol May 27, 2024 1:04 pm Hypertension May 27, 2024 1:04 pm Vitamin D deficiency May 27, 2024 1:0 4pm Additional Source Comments INFORMATION SOURCE (unrecogn ized section and content) DATE CREATED AUTHOR 09/19/2017 [facility] [employer] DATE CREATED AUTHOR AUTHOR'S ORGANIZ ATION 06/02/2022 [facility] DATE CREATED AUTHOR AUTHOR'S ORGANIZ ATION 01/09/2023 [facility] DATE CREATED AUTHOR AUTHOR'S ORGANIZ ATION [facility]/17/2025 [facility] DATE CREATED AUTHOR AUTHOR'S ORGANIZ ATION 02/02/2025 [facility] Reason for Visit (unrecogniz ed section and content) Reason Onset Date Comments Med Refill 06/29/2022 Reason Onset Date Comments Med Refill 09/12/2022 Reason Onset Date Comments Sinusitis 10/03/2022 Reason Comments Sinus Problem Coughing, headache, stuffy nose Reason Comments Follow-up 6 month med check Reason Onset Date Comments Orders 11/14/2022 Cardiac stress t est and [facility] Reason Onset Date Comments Referral 11/29/2022 [facility] Reason Comments Med Refill Reason Onset Date Comments Request For Order(s) 11/30/2022 Reason Onset Date Comments Med Refill 12/19/2022 Reason Onset Date Comments Orders 12/06/2022 Reason Onset Date Comments Fatigue 02/01/2023 Reason Onset Date Comments Med Refill 04/17/2023 Reason Onset Date Comments Referral 06/12/2023 Dr Patton Reason Comments Follow-up 6 month med check Reason Onset Date Comments Med Refill 07/03/2023 Reason Onset Date Comments Orders 07/11/2023 Endo referral Reason Onset Date Comments Med Refill 07/11/2023 Reason Onset Date Comments Orders 11/14/2022 Cardiac stress t est and [facility] Reason Onset Date Comments Medication Problem 08/18/2023 Reason Onset Date Comments Med Refill 12/18/2023 Reason Onset Date Comments Referral 01/08/2024 Dr Mix / Dr Hercules Reason Comments Follow-up Med Check Flu Vaccine Patient has declined to receive influenza vaccine in the office. Reason Onset Date Comments Lab Orders 12/18/2023 Reason Onset Date Comments Referral 04/25/2022 General Reason Comments Follow-up Check up Reason Onset Date Comments Med Refill 03/14/2024 Reason Onset Date Comments Labs Only 02/26/2024 Reason Comments Follow-up Med Check Reason Onset Date Comments Referral 05/13/2024 Cardiolyte Stres s / Podiatry Reason Onset Date Comments Referral 05/13/2024 Cardiolyte Stres s / Podiatry Reason Onset Date Comments Other 05/16/[address] Reason Onset Date Comments Med Refill 05/17/2024 Reason Onset Date Comments Medication Problem 05/17/2024 Reason Onset Date Comments Other 07/12/2024 Central Scheduli ng Reason Onset Date Comments Orders 08/12/2024 Reason Onset Date Comments Med Refill 08/26/2024 Reason Comments Medicare Annual Wellness Visit Subsequen t Reason Onset Date Comments Other 09/23/2024 Reason Onset Date Comments Referral 01/15/2025 Care Teams (unrecognized sec tion and content) Public Works Inspector Relationship Specialty Start Date End Date Domingo Fong DO [address], [place] [id number] PCP - General 12/22/14 Public Works Inspector Relationship Specialty Start Date End Date Domingo Fong DO [address], [place] [id number] PCP - General 12/22/14 Public Works Inspector Relationship Specialty Start Date End Date Domingo Fong DO [address], [place] [id number] PCP - General 12/22/14 Public Works Inspector Relationship Specialty Start Date End Date Domingo Fong DO [address] [place] [address] PCP - General 12/22/14 Public Works Inspector Relationship Specialty Start Date End Date Domingo Fong DO [address] [place] [address] PCP - General 12/22/14 Public Works Inspector Relationship Specialty Start Date End Date Domingo Fong DO [address] [place] [address] PCP - General 12/22/14 Public Works Inspector Relationship Specialty Start Date End Date Domingo Fong, [address] [place] [address] PCP - General 12/22/14 Public Works Inspector Relationship Specialty Start Date End Date Domingo Fong, [address] [place] [address] PCP - General 12/22/14 Public Works Inspector Relationship Specialty Start Date End Date Domingo Fong, [address] [place] [address] PCP - General 12/22/14 Public Works Inspector Relationship Specialty Start Date End Date Domingo Fong DO [address] [place] [address] PCP - General 12/22/14 Public Works Inspector Relationship Specialty Start Date End Date Domingo Fong, [address] [place] [address] PCP - General 12/22/14 Public Works Inspector Relationship Specialty Start Date End Date Domingo Fong, DO [address] [place] [phone] PCP - General 12/22/14 Public Works Inspector Relationship Specialty Start Date End Date Domingo Fong, DO [address] [place] [phone] PCP - General 12/22/14 Public Works Inspector Relationship Specialty Start Date End Date Domingo Fong, DO [address] [place] [phone] PCP - General 12/22/14 Public Works Inspector Relationship Specialty Start Date End Date Domingo Fong, DO [address] [place] [phone] PCP - General 12/22/14 Public Works Inspector Relationship Specialty Start Date End Date Domingo Fong Denisha, DO [address] [place] [phone] PCP - General 12/22/14 Public Works Inspector Relationship Specialty Start Date End Date Domingo Fong, DO [address] [place] [phone] PCP - General 12/22/14 Public Works Inspector Relationship Specialty Start Date End Date Domingo Fong, DO [address] [place] [phone] PCP - General 12/22/14 Public Works Inspector Relationship Specialty Start Date End Date Domingo Fong, DO [address] [place] [address] PCP - General 12/22/14 Public Works Inspector Relationship Specialty Start Date End Date Domingo Fong, DO [address] [place] [address] PCP - General 12/22/14 Public Works Inspector Relationship Specialty Start Date End Date Domingo Fong, DO [address] [place] [address] PCP - General 12/22/14 Public Works Inspector Relationship Specialty Start Date End Date Domingo Fong, DO [address] [place] [address] PCP - General 12/22/14 Public Works Inspector Relationship Specialty Start Date End Date Domingo Fong, DO [address] [place] [address] PCP - General 12/22/14 Public Works Inspector Relationship Specialty Start Date End Date Domingo Fong, DO [address] [place] [address] PCP - General 12/22/14 Public Works Inspector Relationship Specialty Start Date End Date Domingo Fong, DO [address] [place] [address] PCP - General 12/22/14 Public Works Inspector Relationship Specialty Start Date End Date Domingo Fong, DO [address] [place] [address] PCP - General 12/22/14 Public Works Inspector Relationship Specialty Start Date End Date MarycruzDomingo pleitez, [address] [place] [address] PCP - General 12/22/14 Public Works Inspector Relationship Specialty Start Date End Date Hetal Domingo Denny, DO [address], [place] [id number] PCP - General 12/22/14 Public Works Inspector Relationship Specialty Start Date End Date Hetal Domingo Denny, DO [address], [place] [id number] PCP - General 12/22/14 Public Works Inspector Relationship Specialty Start Date End Date Hetal Domingo Denny, DO [address] [place] [address] PCP - General 12/22/14 Public Works Inspector Relationship Specialty Start Date End Date Hetal Domingo Denny, DO [address] [place] [phone] PCP - General 12/22/14 Public Works Inspector Relationship Specialty Start Date End Date Hetal Domingo Denny, DO [address] [place] [address] PCP - General 12/22/14 Public Works Inspector Relationship Specialty Start Date End Date Hetal Domingo Denny, DO [address] [place] [phone] PCP - General 12/22/14 Team Status: Active Member Role Status Dates Dr. Domingo Fong DO Primary Care Provider Active Team Status: Inactive Member Role Status Dates Dr. Domingo Fong DO Primary Care Provider Active Start: April 01, 2024 End: April 01, 2024 Dr. Domingo Fong DO Referring Provider Active Start: April 01, 2024 End: April 01, 2024 Natacha Mix FILTERING MACHINE TENDER-C Attending Provider Active Start: April 01, 2024 End: April 01, 2024 Team Status: Inactive Member Role Status Dates Dr. Domingo Fong DO Primary Care Provider Active Start: May 20, 2024 End: May 20, 2024 Natacha Mix FILTERING MACHINE TENDER-C Attending Provider Active Start: May 20, 2024 End: May 20, 2024 Natacha Mix FILTERING MACHINE TENDER-C Referring Provider Active Start: May 20, 2024 End: May 20, 2024 Team Status: Inactive Member Role Status Dates Dr. Domingo Fong DO Primary Care Provider Active Start: May 27, 2024 End: May 27, 2024 Dr. Domingo Fong DO Referring Provider Active Start: May 27, 2024 End: May 27, 2024 Natacha Mix FILTERING MACHINE TENDER-C Attending Provider Active Start: May 27, 2024 End: May 27, 2024 Team Status: Inactive Member Role Status Dates Dr. Domingo Fong DO Primary Care Provider Active Start: June 06, 2024 End: June 06, 2024 Natacha Mix FILTERING MACHINE TENDER-C Attending Provider Active Start: June 06, 2024 End: June 06, 2024 Natacha Mix FILTERING MACHINE TENDER-C Referring Provider Active Start: June 06, 2024 End: June 06, 2024 Public Works Inspector Relationship Specialty Start Date End Date Domingo Fong DO [address] [place] [address] PCP - General 12/22/14 Public Works Inspector Relationship Specialty Start Date End Date Domingo Fong DO [address] [place] [address] PCP - General 9/28/15 Public Works Inspector Relationship Specialty Start Date End Date Domingo Fong, DO [address] [place] [address] PCP - General 12/22/14 Public Works Inspector Relationship Specialty Start Date End Date Domingo Fong DO [address] [place] [address] PCP - General 12/22/14 Public Works Inspector Relationship Specialty Start Date End Date Domingo Fong, DO [address] [place] [address] PCP - General 12/22/14 Goals (unrecognized section and content) Goals may be documented in a n alternate section FOR RECORDS PERTAINING TO PATIENTS WHO ARE OR HAVE BEEN ENROLLED IN A CHEMICAL DEPENDENCY/SUBSTANCEABUSE PROGRAM, SOME INFORMATION MAY BE OMITTED. This clinical summary was aggregated from multiple sources. Caution should be exercised in using it in the provision of clinical care. This summary normalizes information from multiple sources, and as a consequence, information in this document may materially change the coding, format and clinical context of patient data. In addition, data may be omitted in some cases. CLINICAL DECISIONS SHOULD BE BASED ON THE PRIMARY CLINICAL RECORDS. [facility]. provides no warranty or guarantee of the accuracy or completeness of information in this document.
[2025-02-10 10:25] LABS: AST(SGOT) 23 U/L (<=31); Alanine Aminotransfer ALT/SGPT 34 U/L (<=34); Albumin, Serum 4.2 g/dL (3.4-4.8); Alkaline Phosphatase 54 U/L (35-104); Anion Gap 10 (5-15); BUN 11 mg/dL (4-19); BUN/Creat Ratio 25.4 RATIO (10-20); Calcium,Total 9.1 mg/dL (7.6-11.0); Carbon Dioxide 28.4 mmol/L (21.0-32.0); Chloride 104 mmol/L (98-108); Cholesterol 120 mg/dL (<=200); Globulin 3.1 g/dL (2.2-4.2); Glucose 80 mg/dL (70-99); Low Density Lipoprotein Calc. 53 mg/dL; Potassium 4.0 mmol/L (3.3-5.1); Triglycerides 59 mg/dL; Very Low Density Lipoprotein 12 mg/dL (5-40); Vitamin D,25 Hydroxy 21.0 ng/mL (30-100); cholesterol:hdl ratio screen 2.21
== END | disposition home or self-care (01) ==
LOC: LAB 08:20
PROVIDERS: PCP Family Medicine; Referring Provider Internal Medicine Endocrinology, Diabetes & Metabolism; Visit Provider Internal Medicine Endocrinology, Diabetes & Metabolism
DX: E11.9 Type 2 diabetes mellitus without complications (principal); Z79.4 Long term (current) use of insulin; E78.00 Pure hypercholesterolemia, unspecified; E03.9 Hypothyroidism, unspecified
CPT/HCPCS: 36415; 80053; 80061; 82306; 83036; 84443

== ENCOUNTER → 2025-03-17 | Outpatient (CLI) | payer MEDICARE, OTHER, SELFPAY ==
[2025-03-17 13:23] VITALS: BP 126/63; PULSE 74; RESP 16; O2SAT 100; BMI 24.0
[2025-03-17 13:34] VITALS: PULSE 75
[2025-03-17] MEDS: Nitroglycerin SL (ED/IMG/CATH) 0.4 MG TABLET SL (13:34)
[2025-03-17 13:41] VITALS: BP 119/51; PULSE 86; RESP 16; O2SAT 96
== END | disposition home or self-care (01) ==
LOC: CT 13:03
PROVIDERS: PCP Family Medicine; Referring Provider Internal Medicine Cardiovascular Disease; Visit Provider Internal Medicine Cardiovascular Disease
DX: R07.9 Chest pain, unspecified (principal)
CPT/HCPCS: 75574; 76380; Q9967